=== PATIENT | male | born 1965 | race Caucasian/White ===

== ENCOUNTER 2018-02-27 10:19 | Emergency (ER) | payer MEDICAID, SELFPAY ==
[2018-02-27] VITALS (16 sets, daily range): BP systolic 122–147; BP diastolic 74–90; PULSE 60–117; RESP 10–18; TEMP 36.5–36.7; O2SAT 94–99
[2018-02-27] MEDS: Normal Saline 1,000 ML 1000 ML IV (10:50)
[2018-02-27 10:52] LABS: Bilirubin Negative (Negative); Blood Moderate (Negative); Clarity Clear; Glucose Negative (Negative); Ketones Negative (Negative); Leukocyte Esterase Trace (Negative); Nitrite Negative (Negative); Specific Gravity 1.025 (1.005-1.025); Urobilinogen 0.2 EU/dL (Up TO 0.2); pH 5.5 (5-8)
--- NOTE | 2018-02-27 10:56 | DI.CT_ITS ---
SYMPTOMS/DIAGNOSIS: LT FLANK PAIN NONCONTRAST RENAL COLIC CT: Comparison is made with [id number]. A 6 x 8 mm stone was previously noted in the left mid ureter. The stone is now located distally in the ureter, above the ureterovesical junction. There is now moderate left hydronephrosis as well as some left perinephritic stranding. Nonobstructing stones and an area of scarring is again noted at the mid and inferior portion of the left kidney. No right renal calculi are seen. A large stone is again noted in the bladder. The prostate is again noted to be markedly enlarged and impresses upon the base of the bladder. Again a bladder mass is questioned. It is not well evaluated due to lack of contrast. The adrenals and inferior portions of the liver and spleen are unremarkable. There is no bowel dilatation. Diverticula are again noted in the sigmoid colon. IMPRESSION: Moderate hydronephrosis secondary to an 8 mm stone in the distal left ureter, migrating distally when compared with the previous exam. A large bladder calculus, enlarged prostate and bladder wall thickening as well as bladder mass are again identified.
--- NOTE | 2018-02-27 10:59 | ED.GENADUL_ITS ---
Discharge Plan Discharge Details Chief Complaint: FlankPain Clinical Impression: Acute left flank pain, Left ureteral stone Primary Care Provider: Alysia Campbell ED Provider: Rodo Talavera Disposition Patient Disposition: HOME Condition: Stable Home Meds and New Rx's Prescriptions: New oxycodone 5 mg capsule 5 mg PO ONCE PRN (Reason: pain) Qty: 12 RF: 0 levofloxacin 750 mg tablet 750 mg PO DAILY Qty: 7 RF: 0 ondansetron [Zofran ODT] 4 mg tablet,disintegrating 4 mg PO TID PRN (Reason: nausea and vomiting) 5 Days Qty: 30 RF: 0 No Action simvastatin 10 MG tablet 10 mg PO DAILY RF: 0 bupropion HCl [Wellbutrin SR] 150 MG tablet extended release 12 hr 300 mg PO DAILY RF: 0 Discharge Instructions Instructions: Kidney Stones (ED), Oxycodone, Rapid Release (By mouth) Additional Instructions: you can take 1000mg tylenol and 600mg ibuprofen every 6 hours for pain as needed if you have severe worsening of pain, persistent vomit or fevers return to the emergency department Referrals: Amador Holly MD [ [facility] ST[facility]FF PHYSICIAN] - Discharge Data Discharge Physician: Rodo Talavera Medical Decision Making MDM Narrative Medical decision making narrative: 52 yo male with hx of bph, kidney stones, hld , who comes in with chief complaint of left flank pain that started around midnight and has had nausea. He has joanie bdominal tenderness so doubt entities such as appendicitis or sbo or other surgical pathology of the abdomen. Will obtain imaging to eval for kidney stone. No chest pain or sob so doubt PE and has no evidence of dvt pt remains stable, labs show no significant abnormalities, does have bacteria in his urine so will start abx for this. His CT confirms 7mm distal stone and likely hematoma in bladder and stone. He is stable for d/c, referral sent to Dr. Holly's office and they stated they will contact him with an appt. Return precautions given Differential Diagnosis kidney stone, pyelo, uti Imaging Data Radiologic Study: Attestation: I personally reviewed and interpreted this imaging study as follows: Imaging: CT Scan Radiologist's impression: vrad report reviewed Lab Data Lab results reviewed: Yes I reviewed the patient's lab results. HPI - General Adult General Mode of arrival: ambulatory . Date/Time Provider Initiated Documentation: 02/27/18 10:51 . Limitations to Documentation: no limitations . Information obtained by: patient . History of Present Illness 52 year old M presents to the emergency department with the chief complaint of left flank pain, described as moderate, with intensity rated at 6. Quality is described as stabbing, and is localized to the back (left flank). Patient reports no radiation. Patient started experiencing this hour(s) (11 ) and it has been constant. No relieving factors improve symptom(s), No exacerbating factors reported . Patient notes other (nausea). Patient did receive the following treatments prior to arrival, none Related Data Home Medications Medication Instructions Recorded Confirmed bupropion HCl [Wellbutrin SR] 300 mg PO DAILY 06/24/17 02/27/18 simvastatin 10 mg PO DAILY tab-cap NS 11/12/17 02/27/18 Previous Rx's Medication Instructions Recorded levofloxacin 750 mg PO DAILY #7 tab 02/27/18 ondansetron [Zofran ODT] 4 mg PO TID PRN 5 Days #30 tab 02/27/18 oxycodone 5 mg PO ONCE PRN #12 cap 02/27/18 Allergies Allergy/AdvReac Type Severity Reaction Status Date / Time No Known Allergies Allergy Unverified 02/27/18 10:26 General Stated Complaint: FlankPain LEOBARDO: 3 Review of Systems Review of Systems All systems reviewed & are unremarkable except as noted in HPI and below Constitutional Denies chills, Denies fever(s) and Denies weakness Eyes Patient Denies loss of vision ENT Denies change in voice Cardiovascular Denies chest pain and Denies dyspnea Respiratory Denies dyspnea Gastrointestinal Denies abdominal pain, Reports nausea and Denies vomiting Genitourinary Denies dysuria Musculoskeletal Denies joint swelling Integumentary/Breasts Denies rash Neurologic Denies loss of vision and Denies weakness Psychiatric Denies depression Endocrine Denies cold intolerance and Denies heat intolerance Allergic/Immunologic Reports urticaria [facility] Medical History BPH (benign prostatic hyperplasia) Depression Varicosities of leg Social History Smoking/Tobacco Use Status: Never Surgical History Colonoscopy - MAC (11/19/17) Repair of inguinal hernia Exam Const General: no acute distress Orientation: alert HENMT Head: normal to inspection Ears: external ears normal General nose exam: external nose normal Mouth: moist mucous membranes Eyes General: appearance normal, both eyes and all related structures Neck Neck: normal visual inspection Resp Effort & Inspection: normal respiratory effort and able to speak in complete sentences Cardio Rate: regular rate GI Inspection: normal to inspection Palpation: nontender Back/Spine/Pelvis Back: No CVA tenderness Skin General skin exam: no rashes or lesions noted Neuro General: alert and oriented x3 Extrem General: normal to inspection Psych Mental Status: mental status grossly normal Course Vital Signs Temperature 36.7 C 02/27/18 10:21 Pulse 74 02/27/18 10:21 Respiratory Rate 16 02/27/18 10:21 Blood Pressure 147/75 H 02/27/18 10:21 Pulse Oximetry 98 02/27/18 10:21 Temperature 36.7 C 02/27/18 10:21 Pulse 74 02/27/18 10:21 Respiratory Rate 16 02/27/18 10:21 Blood Pressure 147/75 H 02/27/18 10:21 Pulse Oximetry 98 02/27/18 10:21
[2018-02-27] MEDS: Ketorolac 30 MG/ML VIAL IVP (11:00)
[2018-02-27] MEDS: Ondansetron 4 MG/2 ML VIAL IVP (11:02)
[2018-02-27 11:04] LABS: Bacteria Moderate HPF (Negative); C & S Indicated? Yes; Casts Negative LPF (Negative); Crystals Negative HPF (Negative); Epithelial Cells Negative HPF (Negative); Mucus Heavy (Negative); Other Cells Negative (Negative); RBC >50 (0-2)
[2018-02-27 11:25] LABS: Abs Immature Grans 0.02 k/cumm (0.0-0.09); Absolute Basophil Count 0.04 k/cumm (0.0-0.2); Absolute Eosinophil Count 0.05 k/cumm (0.0-0.7); Absolute Lymphocyte Count 1.72 k/cumm (1.2-3.4); Absolute Neutrophil Count 10.63 k/cumm (1.2-6.7); Basophils % 0.3; Eosinophils % 0.4; HCT 44.6 % (40.0-50.0); HGB 15.1 g/dL (13.5-17.5); Immature Grans % 0.1; Lymphocytes % 12.8; Mean Corp. HGB Concentration 33.9 g/dL (32.0-36.0); Mean Corpuscular Hemoglobin 30.2 pg (27.0-33.0); Mean Corpuscular Volume 89.2 fL (80-95); Mean Platelet Volume 10.1 fL (8.0-11.0); Monocytes % 7.2; Neutrophils % 79.2; Platelet Count 256 x1000/uL (130-400); RBC Distribution Width 12.9 % (11.8-14.1); White Blood Cell Count 13.42 k/cumm (4.4-10.8)
[2018-02-27 11:27] LABS: Absolute Monocyte Count 0.97 k/cumm (0.11-0.7)
[2018-02-27 11:31] LABS: INR 1.2 (1.0-3.5); PTT Activated 27.2 sec (21.0-31.4); Prothrombin Time 11.7 sec (9.3-10.8)
[2018-02-27 11:32] LABS: ALT 31 U/L (12-78); AST 21 U/L (15-37); Albumin 4.3 g/dL (3.4-5.0); Alkaline Phosphatase 80 U/L (46-116); BUN 26 mg/dL (7-18); Bilirubin, Total 0.7 mg/dL (0.2-1.0); CREATININE 1.23 mg/dL (0.70-1.30); Calcium 8.6 mg/dL (8.5-10.1); Chloride 105 mmol/L (98-107); Glucose 112 mg/dL (70-100); Potassium 4.1 mmol/L (3.5-5.1); Sodium 137 mmol/L (136-145); Total Protein 7.6 g/dL (6.4-8.2)
[2018-02-27] MEDS: MORPHine 10 MG/ML VIAL 4 MG IVP (13:15)
--- NOTE | 2018-02-27 13:30 | DI.VRAD_ITS ---
EXAM: CT Abdomen and Pelvis Without Intravenous Contrast EXAM DATE/TIME: 02/27/2018 11:49 AM CLINICAL HISTORY: 52 years old, male; Pain; Other: Flank pain TECHNIQUE: Axial computed tomography images of the abdomen and pelvis without intravenous contrast. Coronal and sagittal reformatted images were created and reviewed. COMPARISON: CT - RENAL COLIC WO CONTRAST 01/05/2018 11:35 AM FINDINGS: Lower thorax: Not included on the study. ABDOMEN: Liver: The visualized portions of the liver appear unremarkable. Gallbladder and bile ducts: The gallbladder is within normal limits. Pancreas: The visualized portions of the pancreas are unremarkable. Spleen: The visualized portions of the spleen are within normal limits. Adrenals: The visualized portions of the adrenal glands are unremarkable. Kidneys and ureters: The right kidney is within normal limits. There are calculi within the lower pole of the left kidney. One measures up to 4 mm and second one measures approximately 2 mm. There is a third calculus measuring up to 4 mm. There is perinephric stranding on the left side. There is moderate hydroureteronephrosis of the left kidney. The left kidney is obstructed secondary to a distal ureteral calculus measuring 7 mm. Stomach and bowel: There is no evidence of bowel obstruction. Appendix: No evidence of appendicitis. PELVIS: Bladder: There is a mass versus hematoma within the urinary bladder. The urinary bladder is not very distended with urine. There is a large bladder stone measuring 2.1 x 1.5 cm. Further evaluation with cystoscopy is suggested if clinically warranted. Reproductive: The prostate is enlarged and indents the bladder base. The seminal vesicles are within normal limits. ABDOMEN and PELVIS: Intraperitoneal space: Normal. No free air. No significant fluid collection. Bones/joints: There are slight degenerative changes of the lumbar spine. Soft tissues: There is a suspected abdominal mesh. Vasculature: The aorta is within normal limits. Lymph nodes: No enlarged lymph nodes. IMPRESSION: Moderate hydroureteronephrosis of the left kidney. The left kidney is obstructed secondary to a distal ureteral calculus measuring 7 mm. Suspect hematoma within the urinary bladder. Underlying mass is not excluded. Large urinary bladder stone. Further evaluation with cystoscopy could be performed if clinically warranted. Enlarged prostate. Correlation with patient's PSA is recommended. Dictated and Authenticated by: Shakir Gibbons MD. Ordering:MARYJANE GARCIA MD
--- NOTE | 2018-03-10 11:01 | PDOC.ERCMPRO ---
Care Management Progress Note 03/10/18-Pt seen for bladder hematoma on 02/27/[address] Barney Talavera. F/U request faxed to Urology.
== END 2018-02-27 14:29 | disposition home or self-care (01) ==
PROVIDERS: Emergency Provider Emergency Medicine; PCP Nurse Practitioner
DX: R10.9 Unspecified abdominal pain (principal); N20.1 Calculus of ureter
CPT/HCPCS: 36415; 80053; 96361; 96374; 96375; 99285; 74176; 81003; 81015; 85025; 85610; 85730; 87086; J1885; J2270; J2405

== ENCOUNTER 2018-09-24 16:57 | Outpatient (REF) | payer MEDICAID, SELFPAY | END 2018-09-24 17:17 | LOC: NCHCN 16:57 | PROVIDERS: PCP Nurse Practitioner; Visit Provider Nurse Practitioner | DX: R31.9 Hematuria, unspecified (principal) | CPT/HCPCS: 87086 ==

== ENCOUNTER 2018-09-25 16:41 | Outpatient (CLI) | payer MEDICAID, SELFPAY ==
--- NOTE | 2018-09-25 15:47 | DI.RAD_ITS ---
SYMPTOM/DIAGNOSIS: F/U STONES, N21.0,N20.1 ABDOMEN: Two views were obtained. The patient reportedly has a history of nephrolithiasis and bladder calculi. There are phleboliths in the pelvis on the left. There is also a possible calcification overlying expected position of the bladder, however I am not certain whether this may represent a bony finding and no oblique views were obtained. CONCLUSION: The examination is indeterminate for urinary tract calcification.
== END 2018-09-25 17:01 ==
PROVIDERS: PCP Nurse Practitioner; Visit Provider Urology
DX: N21.0 Calculus in bladder (principal); N20.1 Calculus of ureter
CPT/HCPCS: 74018

== ENCOUNTER 2018-12-18 06:39 | Inpatient (IN) | payer MEDICAID, SELFPAY ==
[2018-12-18] VITALS (12 sets, daily range): BP systolic 92–145; BP diastolic 55–86; PULSE 73–96; RESP 12–20; TEMP 35.8–36.7; O2SAT 95–97
--- NOTE | 2018-12-18 06:48 | W.PM.HP.N ---
Date of service: 12/18/18 Time of Service: 07:02 Assessment and Plan (1) Bladder stone: Current visit: No Status: Acute (2) BPH (benign prostatic hyperplasia): Current visit: No Status: Acute We will proceed with cystoscopy, holmium laser of bladder stone, stone evacuation and transurethral resection of prostate. Given the size of the prostate, I would expect the entire to the procedure to last several hours. We will admit him to the hospital afterwards for continuous bladder irrigation. History of Present Illness Chief Complaint: Bladder stone Narrative: This is a 52-year-old gentleman who has a long history of an elevated PSA, prostatic hyperplasia and gross hematuria. He has had multiple prostate biopsies which is shown no malignancy. Most of his previous urologic care occurred when he was living in [place]. When I first met this gentleman, he had developed urinary retention. We did a cystoscopy and clot evacuation. We identified a large stone within his bladder. He subsequently had a prostate biopsy which showed and confirmed the absence of prostate malignancy. With no concerns for prostate cancer, we had discussed treatment options for his bladder stone and his prostate. He presents now for cystoscopy, holmium laser of his bladder stone with stone evacuation and vaporization of his prostate. Review of Systems Review of Systems No chills. Describes fever last week related to stress No vision change or dysphasia No diabetes or thyroid No shortness of breath, cough or hemoptysis No chest pain or palpitations No nausea, vomiting, hepatitis, ulcers, jaundice, diarrhea or constipation No seizures, strokes or peripheral neuropathy No bleeding disorders or anemia No gout [facility] Medical History Pneumothorax (Acute) Pneumothorax on left (Acute) Pneumothorax on right (Acute) BPH (benign prostatic hyperplasia) Depression Varicosities of leg Surgical History H/O prostate biopsy (Resolved) History of cystoscopy (Resolved) Colonoscopy - MAC (11/19/17) Repair of inguinal hernia Social History Smoking/Tobacco Use Status: Never Alcohol Intake: current Drug use: Rarely Substance use type: does not use Do you feel safe in your relationship?: Yes Meds Home Medications Medication Instructions Recorded Confirmed Type bupropion HCl [Wellbutrin SR] 300 mg PO DAILY 06/24/17 12/18/18 History multivitamin 1 cap PO QAM 06/26/19 06/27/19 History saw palmetto 160 mg PO DAILY 12/17/18 12/18/18 History Allergies Allergy/AdvReac Type Severity Reaction Status Date / Time No Known Allergies Allergy Unverified 12/18/18 06:48 Exam Narrative Exam Narrative: He is in no current distress. He is cooperative. His vital signs are documented elsewhere in the chart. His chest wall motion is normal. He does not appear short of breath at rest. His neck is supple with no masses His lungs are clear cardiac exam regular rate and rhythm with no murmurs His abdomen is soft with no masses. His urethral meatus is patent with no stricture. He is awake and alert. On imaging studies, his bladder stone is estimated to be @ 3 cm in largest dimension. On TRUs, his prostate volume is over 100 cc.
[2018-12-18] MEDS: Lactated Ringers 1,000 ML 80 ML IV (06:58)
[2018-12-18] MEDS: ceFAZolin 2 GM/50 ML BAG IVPB (07:28)
[2018-12-18] MEDS: Lidocaine 2% Jelly 6 ML SYR (07:51)
--- NOTE | 2018-12-18 10:48 | PROST_PTH ---
PATIENT: Rodo Elizabeth LOC: [id number]#:[id number] AGE/SX: 52/M ROOM: 207 RE12/18/[address]: Amador Holly MD : 1965 BED: A DIS: 12/20/2018 SPEC #: [id number] RECD: 12/18/18 12:53 STATUS: FRANCISCO J REQ #: [id number] FELICIA: 12/18/18 10:[address]: Amador Holly DEPT: Surgical Specimen RECD BY: Rosetta Quintana ENTERED: 12/18/18 12:53 SP TYPE: PROST OTHR DR: Alysia Campbell Tissues: 1 - PROSTATE CURRETTINGS Procedures: GROSS AND MICRO LEVEL 4 Comments: [id number]
[2018-12-18] MEDS: Lactated Ringers 1,000 ML 125 ML IV ×2 (11:56→20:52)
--- NOTE | 2018-12-18 12:54 | NUR.NOTE ---
Nursing Note: Pt A&Ox3. VSS. On 2L O2, 95%. CBI running. No c/o pain. groggy. will con't to monitor.
[2018-12-18] MEDS: Normal Saline Flush 10 ML SYR IV ×2 (14:32→20:02)
[2018-12-18] MEDS: HYDROmorphone 2 MG/ML VIAL IVP ×2 (14:32→20:01)
[2018-12-18] MEDS: traMADol 50 MG TAB PO (14:32)
[2018-12-18] MEDS: Ketorolac 15 MG/ML VIAL IVP (20:01)
[2018-12-18] MEDS: Docusate Sodium 100 MG CAP PO (20:58)
--- NOTE | 2018-12-19 01:46 | NUR.NOTE ---
Nursing Note: CBI in progress with bruce red output but no blood clots noted. Medicated with dilaudid and toradol by other nurse and with good relief. Ambulates from bed to bathroom, had 2 drops of blood from penis noted. Ibuprofen given as requested for pain,and with good effect. Needs attended. Call lights at reach.
[2018-12-19] MEDS: HYDROmorphone 2 MG/ML VIAL IVP (05:34)
[2018-12-19] MEDS: Lactated Ringers 1,000 ML 125 ML IV (05:38)
[2018-12-19] MEDS: Normal Saline Flush 10 ML SYR IV (05:49)
[2018-12-19] MEDS: Ketorolac 15 MG/ML VIAL IVP (05:49)
[2018-12-19] MEDS: traMADol 50 MG TAB PO (05:49)
[2018-12-19 05:50] VITALS: BP 142/80; PULSE 68; RESP 20; TEMP 36.8; O2SAT 96
--- NOTE | 2018-12-19 07:09 | W.PM.PROGNOT ---
Date of Service Date of service: 12/19/18 Time of Service: 07:09 Assessment and Plan (1) Bladder stone: Current visit: No Status: Acute (2) BPH (benign prostatic hyperplasia): Current visit: No Status: Acute I would discontinue his bladder irrigation this morning. If the urine becomes bloody (to the point where it is no longer transparent) we will restart the bladder irrigation. Otherwise, I would expect that we will be able to discharge him to home later today with his catheter in place. He will then come back to our office next week for a voiding trial. If we do need to restart his bladder irrigation, he will likely need to stay an extra night in the hospital. Subjective Interval history since last seen: He had some discomfort this morning, but no clot retention. He is tolerating oral medications Exam Narrative Exam Narrative: He is in no current distress. He does not appear septic or toxic. His vital signs are documented elsewhere in the chart. He is urine output is clear with CBI running He is awake, alert and oriented His labs from this morning are pending Objective Objective Clinical Data: Vital Signs Temperature 36.8 C 12/19/18 05:50 Temperature Source Tympanic 12/19/18 05:50 Pulse 68 12/19/18 05:50 Pulse Rhythm Regular 12/18/18 17:06 Respiratory Rate 20 12/19/18 05:50 Respiratory Effort Non-Labored 12/18/18 17:06 Respiratory Depth Normal 12/18/18 17:06 Respiratory Pattern Normal 12/18/18 17:06 Blood Pressure 142/80 H 12/19/18 05:50 Pulse Oximetry 96 12/19/18 05:50 Respiratory End-tidal CO2 33 12/18/18 12:11 Oxygen Delivery Method Room Air 12/19/18 05:50 Oxygen Flow Rate 0 12/19/18 05:50 Pain Level 6 12/19/18 05:50 Intake & Output 12/18/18 12/18/18 12/19/18 11:59 23:59 11:59 Intake Total 950 / 2440.000 1490.000 / 2440.000 1050 / 1050 Output Total 50 / 4050 4000 / 4050 Balance 900 / -1610.000 -2510.000 / -1162.482 9095 / 1050 Weight 100.3 kg Intake: IV 950 / 2200.000 1250.000 / 2200.000 1050 / 1050 Oral 240 / 240 Output: Urine 4000 / 4000 Estimated Blood Loss 50 / 50 Other: Urine Color [place] Urine Appearance Clear Hematuria Comment CBI draining [place] red output no blood clots. light pink and clear Emesis Description None None
--- NOTE | 2018-12-19 07:11 | W.PM.DS.N ---
Date of service: 12/20/18 Time of Service: 09:23 DS: Diagnosis Discharge Diagnosis (1) Bladder stone: Status: Acute (2) BPH (benign prostatic hyperplasia): Status: Acute Discharge Plan Disposition Patient Disposition: HOME Condition: Stable Discharge Details Reason For Visit: BLADDER STONE Admit Date/Time: 12/18/18 06:39 Admit Provider: Amador Holly Attending Provider: Amador Holly Primary Care Provider: Nathalie Franco Hospital Course Hospital Course: The patient was admitted and taken to the operating room on 12/18/2018 for a planned cystoscopy, holmium laser of a known bladder stone and transurethral resection of the prostate In the operating room, we were initially unable to visualize the bladder stone due to a large intravesical portion of his prostate. We resected his median lobe to access his bladder stone. We were then able to fracture the bladder stone and remove the visible fragments. In the postoperative period, we ran continuous bladder irrigation. He had no clots or retention in the first 24 hours. He remained afebrile. He was able to tolerate a regular diet. His bladder irrigation was discontinued, but he developed clot retention so we hand irrigated his catheter and restarted his bladder irrigation On postoperative day #2, his irrigation remained clear. I found no clots when I hand irrigated his catheter that morning. His bladder irrigation was again discontinued and he will be discharged to home if the catheter continues to drain well His serum creatinine had a bump immediately after surgery. The creatinine has decreased back towards its baseline before discharge. Home Meds and New Rx's Prescriptions: No Action bupropion HCl [Wellbutrin SR] 150 MG tablet extended release 12 hr 300 mg PO DAILY RF: 0 saw palmetto 160 mg Capsule 160 mg PO DAILY RF: 0 multivitamin Capsule 1 cap PO QAM RF: 0 Discharge Instructions Additional Instructions: Follow-up early next week for catheter removal. He will also need an appointment for 1 to 2 weeks to review his surgical pathology. Urology will call you with appointment date and times. Singh to leg bag with plug to catheter's irrigation port. OK to shower Referrals: Amador Holly MD [ [facility] STAFF PHYSICIAN] - 12/26/18 8:00 am (keep afternoon of 12/26 free, if unable to void after appt will need to come back to office pt to f/u with Avni again 01/09 @ 1100 am ) Activity:: No lifting over 10 pounds until followup visit Equipment/Supplies:: Singh to legbag Diet:: As Tolerated Discharge Orders Discharge Orders: Discharge Order (Routine); Ordered 12/20/18 Ordered By: Amador Holly Exam Narrative Exam Narrative: At the time of discharge, he looks well. He does not appear septic or toxic. His vital signs are documented elsewhere in this chart His chest wall motion is normal. He does not appear short of breath at rest. Cardiac exam shows a regular rate and rhythm. His abdomen is soft with no guarding or rebound tenderness His urine remains transparent but pink-tinged He is awake, alert and oriented. His surgical pathology is not available. DS: Data Vitals/I&O Vitals and I&O: Vital Signs Temperature 36.8 C 12/19/18 05:50 Temperature Source Tympanic 12/19/18 05:50 Pulse 68 12/19/18 05:50 Pulse Rhythm Regular 12/18/18 17:06 Respiratory Rate 20 12/19/18 05:50 Respiratory Effort Non-Labored 12/18/18 17:06 Respiratory Depth Normal 12/18/18 17:06 Respiratory Pattern Normal 12/18/18 17:06 Blood Pressure 142/80 H 12/19/18 05:50 Pulse Oximetry 96 12/19/18 05:50 Respiratory End-tidal CO2 33 12/18/18 12:11 Oxygen Delivery Method Room Air 12/19/18 05:50 Oxygen Flow Rate 0 12/19/18 05:50 Pain Level 6 12/19/18 05:50 Intake & Output 12/18/18 12/18/18 12/19/18 11:59 23:59 11:59 Intake Total 950 / 2440.000 1490.000 / 2440.000 1050 / 1050 Output Total 50 / 4050 4000 / 4050 Balance 900 / -1610.000 -2510.000 / -4318.681 0082 / 1050 Weight 100.3 kg Intake: IV 950 / 2200.000 1250.000 / 2200.000 1050 / 1050 Oral 240 / 240 Output: Urine 4000 / 4000 Estimated Blood Loss 50 / 50 Other: Urine Color [place] Urine Appearance Clear Hematuria Comment CBI draining [place] red output no blood clots. light pink and clear Emesis Description None None Labs on day of discharge: Labs from last 24 hours 12/19/18 12/19/18 12/18/18 05:35 05:35 10:48 WBC Pending RBC Pending Hgb Pending Hct Pending MCV Pending MCH Pending MCHC Pending RDW Pending Plt Count Pending MPV Pending Sodium Pending Potassium Pending Chloride Pending Carbon Dioxide Pending Anion Gap Pending BUN Pending Creatinine Pending Estimated GFR/1.73 m2 Pending Glucose Pending Calcium Pending Stone Analysis Pending Stone Source Pending Stone Constituent 1 Pending Stone Constituent 2 Pending Stone Constituent 3 Pending Major Stone Nidus Pending Minor Stone Nidus Pending Major Stone Shell Pending Minor Stone Shell Pending Stone Comment Pending [facility] Medical History Pneumothorax (Acute) Pneumothorax on left (Acute) Pneumothorax on right (Acute) BPH (benign prostatic hyperplasia) Depression Varicosities of leg Surgical History H/O prostate biopsy (Resolved) History of cystoscopy (Resolved) Colonoscopy - MAC (11/19/17) Repair of inguinal hernia Social History Smoking/Tobacco Use Status: Never Alcohol Intake: current Drug use: Rarely Substance use type: does not use Do you feel safe in your relationship?: Yes
[2018-12-19 07:27] LABS: HCT 36.8 % (40.0-50.0); HGB 12.5 g/dL (13.5-17.5); Mean Corpuscular Hemoglobin 30.5 pg (27.0-33.0); Mean Corpuscular Volume 89.8 fL (80-95); Mean Platelet Volume 10.5 fL (8.0-11.0); Platelet Count 237 x1000/uL (130-400); RBC Distribution Width 13.1 % (11.8-14.1); White Blood Cell Count 15.06 k/cumm (4.4-10.8)
--- NOTE | 2018-12-19 07:28 | ROE_ITS ---
REPORT OF OPERATIVE PROCEDURE DATE OF PROCEDURE December 18, 2018 PREOPERATIVE DIAGNOSIS Bladder stone. POSTOPERATIVE DIAGNOSIS Bladder stone. PROCEDURE Cystoscopy, Holmium laser lithotripsy of bladder stone, transurethral resection of large median lobe of prostate. SURGEON SURGEON Amador Holly M.D. ANESTHESIA General. COMPLICATIONS None. ESTIMATED BLOOD LOSS Less than 200 cc HISTORY This is a 52-year-old gentleman who has a history of an enlarged prostate. He has also been identifie d as having a large bladder stone. He has had hematuria with clot retention, he presents now for emma tment of his bladder stone. OPERATIVE REPORT The patient was brought to the Operating Room on 12/18/2018. After successful induction of general an esthesia, he was placed in the dorsal lithotomy position. His genitalia was prepped and draped. A #22-German rigid cystoscope was passed through the urethra into the bladder. The urethra and bladd er were inspected with the 30-degree lens. The pendulous, bulbous and membranous urethras all appeared normal with no strictures. The prostatic urethra showed lateral lobe enlargement, and a very large median lobe. In fact, the median lobe was s o large that I was initially unable to visualize the stone. We then removed the cystoscope, and converted to a #26-German rectoscope sheath. I then resected and vaporized the very large median lobe until the stone came into view. We then switched back to the cystoscope and used 1000 micron Holmium laser fiber to fracture the ston e. We used the power setting of 1.5 joules and a rate of 8. As the stone fragmented, we evacuated the stone fragments, we sent them to the lab for chemical analysis. Once the stone had been fragmented and removed, we then switched back to the resectoscope and vaporiz ation button. We resected the remainder of the median lobe and sent all resected tissue for Pathology We then switched over to the plasma button and vaporized the remainder of the median lobe. At the completion of the procedure, no arterial bleeding was seen. No residual stone fragments were i dentified. We then passed a #24-German hematuria catheter through the urethra into the bladder. The c atheter balloon was inflated with 30 cc of sterile water. Continuous bladder irrigation with saline w as begun. Traction was placed on the catheter until the irrigant became clear. The patient tolerated the procedure well. There were no complications.
[2018-12-19 07:40] LABS: Anion Gap 12.3 mmol/L (3-11); BUN 46 mg/dL (7-18); CO2 21.7 mmol/L (21.0-32.0); CREATININE 2.39 mg/dL (0.70-1.30); Calcium 7.8 mg/dL (8.5-10.1); Chloride 106 mmol/L (98-107); Estimated GFR 28.49 (mL/min/1.73m2); Glucose 126 mg/dL (70-100); Potassium 4.2 mmol/L (3.5-5.1); Sodium 140 mmol/L (136-145)
[2018-12-19] MEDS: Docusate Sodium 100 MG CAP PO ×2 (08:01→20:25)
[2018-12-19] MEDS: buPROPion-CR 150 MG TABCR 300 MG PO (08:01)
[2018-12-19] MEDS: Multivitamin TAB 1 TAB PO (08:01)
--- NOTE | 2018-12-19 08:15 | PDOC.CMIN ---
- If Service Date Differs Date of service: 12/19/18 Time of Service: 08:15 Care Management Initial Assess REASON FOR HOSPITALIZATION:: Bladder stone PAST MEDICAL HISTORY/PAST SURGICAL HISTORY:: Medical History . Pneumothorax (Acute). Pneumothorax on left (Acute). Pneumothorax on right (Acute). BPH (benign prostatic hyperplasia). Depression. Varicosities of leg. Surgical History. H/O prostate biopsy (Resolved). History of cystoscopy (Resolved). Colonoscopy - MAC (11/19/17). Repair of inguinal hernia PREVIOUS FUNCTIONAL STATUS/SOCIAL/FAMILY SUPPORTS:: Rodo lives in a [employer] community in [place] with many other individuals. Currently he is in a single room but will be moving into a dormitory there soon. He describes the community as very supportive. 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 CURRENT FUNCTIONAL STATUS:: Rodo was sitting up in a chair when visited. He was preparing for discharge at the time. He states he is feeling better and looks forward to going home. ADVANCE DIRECTIVES:: None on file at [facility] Has patient been provided with information about the portal?: No Did the patient sign up for the portal?: No CODE STATUS:: Full Code INSURANCE COVERAGE / FINANCIAL ISSUES:: Medicaid Vt CURRENT HOME/COMMUNITY SERVICES/EQUIPMENT:: none PRIMARY CARE PHYSICIAN:: Alysia Campbell POTENTIAL DISCHARGE NEEDS:: Follow up with urology, PCP and discharge plan of care PATIENT/FAMILY EDUCATION NEEDS:: Discharge plan, limitations, follow up plan and Ask Me Three. ANTICIPATED BARRIERS TO DISCHARGE:: none identified TRANSPORTATION:: Rodo will drive himself home via private vehicle. PLAN:: Rodo will be discharged to his home this afternoon. He will follow up with his urologist, PCP and discharge plan of care.
[2018-12-19 08:25] VITALS: BP 127/80; PULSE 63; RESP 20; TEMP 36; O2SAT 97
--- NOTE | 2018-12-19 10:24 | INITIAL_ITS ---
- If Service Date Differs Date of service: 12/19/18 Time of Service: 08:15 Care Management Initial Assess REASON FOR HOSPITALIZATION:: Bladder stone PAST MEDICAL HISTORY/PAST SURGICAL HISTORY:: Medical History . Pneumothorax (Acute). Pneumothorax on left (Acute). Pneumothorax on right (Acute). BPH (benign prostatic hyperplasia). Depression. Varicosities of leg. Surgical History. H/O prostate biopsy (R esolved). History of cystoscopy (Resolved). Colonoscopy - MAC (11/19/17). Repair of inguinal hernia PREVIOUS FUNCTIONAL STATUS/SOCIAL/FAMILY SUPPORTS:: Rodo lives in a [employer] community in [place] with many other individuals. Currently he is in a single room but will be moving into a dormitory there soon. He describes the community as very supportive. 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 CURRENT FUNCTIONAL STATUS:: Rodo was sitting up in a chair when visited. He was preparing for discharge at the time. He states he is feeling better and looks forward to going home. ADVANCE DIRECTIVES:: None on file at [facility] Has patient been provided with information about the portal?: No Did the patient sign up for the portal?: No CODE STATUS:: Full Code INSURANCE COVERAGE / FINANCIAL ISSUES:: Medicaid Vt CURRENT HOME/COMMUNITY SERVICES/EQUIPMENT:: none PRIMARY CARE PHYSICIAN:: Alysia Campbell POTENTIAL DISCHARGE NEEDS:: Follow up with urology, PCP and discharge plan of care PATIENT/FAMILY EDUCATION NEEDS:: Discharge plan, limitations, follow up plan and Ask Me Three. ANTICIPATED BARRIERS TO DISCHARGE:: none identified TRANSPORTATION:: Rodo will drive himself home via private vehicle. PLAN:: Rodo will be discharged to his home this afternoon. He will follow up with his urologist, PCP and discharge plan of care.
--- NOTE | 2018-12-19 10:50 | CHAPLAIN ---
Rodo was sitting up in his chair reading when I visited. I explained my role and offered support. He said he knew he would be in the hospital for a short time and so he did not ask any friends or relatives to visit him. Rodo is listed on our roster as [employer]ism and his address is the address of [place].
[2018-12-19] MEDS: Acetaminophen 325 MG TAB 650 MG PO ×2 (12:57→22:37)
--- NOTE | 2018-12-19 13:08 | NUR.NOTE ---
Nursing Note: In anticipation of d/c, pt's three way irrigation had been clamped and leg bag placed. Pt c/o leakage around tip of penis and considerable pain. Pain (7/10) was intermittent and described as stabbing, particularly when pt felt that he needed to void. MS director consulted; bladder scan obtained (0ml), balloon deflated/inflated), belladonna/opium suppository administered. Singh continued to drain dark red urine. Hand irrigation bringing multiple clots. APAP administered. MD notified. Pt to MD's office for additional intervention. RN will continue to monitor.
[2018-12-19 15:42] VITALS: BP 152/86; PULSE 71; RESP 19; TEMP 36.4; O2SAT 98
--- NOTE | 2018-12-19 16:22 | W.PM.PROGNOT ---
Date of Service Date of service: 12/19/18 Time of Service: 16:23 Assessment and Plan (1) Bladder stone: Current visit: No Status: Acute (2) BPH (benign prostatic hyperplasia): Current visit: No Status: Acute We will keep him in the hospital overnight and restart his bladder irrigation. His serum creatinine was a bit high this morning, I expect it had to do with the long surgical time yesterday. We will recheck a serum creatinine tomorrow. Subjective Interval history since last seen: His bladder irrigation was discontinued earlier today. He did fairly well but then developed more clots and clot retention. Initially, the catheter was hand irrigated and multiple clots were obtained. Objective Objective Clinical Data: Abnormal lab results 12/19/18 12/19/18 Range/Units 06:20 06:20 WBC 15.06 H (4.4-10.8) k/cumm RBC 4.10 L (4.50-6.00) m/cumm Hgb 12.5 L (13.5-17.5) g/dL Hct 36.8 L (40.0-50.0) % Anion Gap 12.3 H (3-11) mmol/L BUN 46 H (7-18) mg/dL Creatinine 2.39 H (0.70-1.30) mg/dL Glucose 126 H (70-100) mg/dL Calcium 7.8 L (8.5-10.1) mg/dL Vital Signs Temperature 36.4 C L 12/19/18 15:42 Temperature Source Tympanic 12/19/18 15:42 Pulse 71 12/19/18 15:42 Pulse Rhythm Regular 12/19/18 07:55 Respiratory Rate 19 12/19/18 15:42 Respiratory Effort Non-Labored 12/19/18 07:55 Respiratory Depth Normal 12/19/18 07:55 Respiratory Pattern Normal 12/19/18 07:55 Blood Pressure 152/86 H 12/19/18 15:42 Pulse Oximetry 98 12/19/18 15:42 Respiratory End-tidal CO2 33 12/18/18 12:11 Oxygen Delivery Method Room Air 12/19/18 15:42 Oxygen Flow Rate 0 12/19/18 15:42 Pain Level 0 12/19/18 15:42 Intake & Output 12/18/18 12/19/18 12/19/18 23:59 11:59 23:59 Intake Total 1490.000 / 2440.000 1647.917 / 1767.917 120 / 1767.917 Output Total 4000 / 4050 350 / 500 150 / 500 Balance -2510.000 / -0746.823 6812.917 / 1267.917 -30 / 1267.917 Intake: IV 1250.000 / 2200.000 1397.917 / 1397.917 Oral 240 / 240 250 / 370 120 / 370 Output: Urine 4000 / 4000 350 / 500 150 / 500 Other: Urine Color [place] Dark Red Urine Appearance Hematuria Clear Comment CBI draining [place] red output no blood clots. Switched from gravity to leg bag in anticipation of d/c. Education provided. Emesis Description None Laboratory Results WBC 15.06 k/cumm (4.4-10.8) H 12/19/18 06:20 RBC 4.10 m/cumm (4.50-6.00) L 12/19/18 06:20 Hgb 12.5 g/dL (13.5-17.5) L 12/19/18 06:20 Hct 36.8 % (40.0-50.0) L 12/19/18 06:20 MCV 89.8 fL (80-95) 12/19/18 06:20 MCH 30.5 pg (27.0-33.0) 12/19/18 06:20 MCHC 34.0 g/dL (32.0-36.0) 12/19/18 06:20 RDW 13.1 % (11.8-14.1) 12/19/18 06:20 Plt Count 237 x1000/uL (130-400) 12/19/18 06:20 MPV 10.5 fL (8.0-11.0) 12/19/18 06:20 Sodium 140 mmol/L (136-145) 12/19/18 06:20 Potassium 4.2 mmol/L (3.5-5.1) 12/19/18 06:20 Chloride 106 mmol/L (98-107) 12/19/18 06:20 Carbon Dioxide 21.7 mmol/L (21.0-32.0) 12/19/18 06:20 Anion Gap 12.3 mmol/L (3-11) H 12/19/18 06:20 BUN 46 mg/dL (7-18) H 12/19/18 06:20 Creatinine 2.39 mg/dL (0.70-1.30) H 12/19/18 06:20 Estimated GFR/1.73 m2 28.49 (mL/min/1.73m2) 12/19/18 06:20 Glucose 126 mg/dL (70-100) H 12/19/18 06:20 Calcium 7.8 mg/dL (8.5-10.1) L 12/19/18 06:20
[2018-12-19] MEDS: Oxybutynin 5 MG TAB PO (20:25)
[2018-12-19 23:40] VITALS: BP 123/75; PULSE 62; RESP 17; TEMP 37; O2SAT 98
[2018-12-20] MEDS: traMADol 50 MG TAB PO (02:00)
--- NOTE | 2018-12-20 02:43 | NUR.NOTE ---
Nursing Note: Beginning of the shift, pt complained of having fullness in his bladder area as if clogged and leakage around the penis noted of clear urine. MD contacted and ordered to start CBI, pt was relieved. At HS, Ditropan given as requested and tylenol given at 2230 hrs. and with good effet. At 0130 hrs. pt was out of bed and went to bathroom and leakage from the penis again observed this time in large amount. Manually irrigated by charger and obtained big blood clots, Continue bladder irrigation after with clear output. Toradol given and pt is quietly resting on bed.
[2018-12-20] MEDS: Acetaminophen 325 MG TAB 650 MG PO ×2 (03:41→12:21)
[2018-12-20 07:34] LABS: Anion Gap 10.6 mmol/L (3-11); BUN 39 mg/dL (7-18); CO2 21.4 mmol/L (21.0-32.0); CREATININE 1.88 mg/dL (0.70-1.30); Calcium 8.6 mg/dL (8.5-10.1); Chloride 109 mmol/L (98-107); Estimated GFR 37.58 (mL/min/1.73m2); Glucose 108 mg/dL (70-100); Potassium 4.2 mmol/L (3.5-5.1); Sodium 141 mmol/L (136-145)
[2018-12-20 08:00] VITALS: BP 112/72; PULSE 72; RESP 16; TEMP 36.5; O2SAT 94
[2018-12-20] MEDS: buPROPion-CR 150 MG TABCR 300 MG PO (09:10)
[2018-12-20] MEDS: Multivitamin TAB 1 TAB PO (09:11)
[2018-12-20] MEDS: Docusate Sodium 100 MG CAP PO (09:11)
--- NOTE | 2018-12-20 09:18 | W.PM.PROGNOT ---
Date of Service Date of service: 12/20/18 Time of Service: 09:18 Assessment and Plan (1) Bladder stone: Current visit: No Status: Acute (2) BPH (benign prostatic hyperplasia): Current visit: No Status: Acute We will try discontinuing his bladder irrigation again this morning. If his catheter drains well the rest of the morning, we can discharge him to home with his catheter in place this afternoon. Subjective Interval history since last seen: He had one episode of clot retention overnight requiring hand irrigation. Otherwise, he has been tolerating oral medications. He has not had any fevers or chills. Exam Narrative Exam Narrative: He looks comfortable. He does not appear septic or toxic. His bladder irrigation is clear. I hand irrigated his catheter and did not obtain any additional clots. He is awake and alert. I reviewed his labs. His creatinine is coming back down to baseline as expected. His surgical pathology still pending Objective Objective Clinical Data: Abnormal lab results 12/20/18 Range/Units 06:49 Chloride 109 H (98-107) mmol/L BUN 39 H (7-18) mg/dL Creatinine 1.88 H (0.70-1.30) mg/dL Glucose 108 H (70-100) mg/dL Vital Signs Temperature 37.0 C 12/19/18 23:40 Temperature Source Tympanic 12/19/18 23:40 Pulse 62 12/19/18 23:40 Pulse Rhythm Regular 12/20/18 05:41 Respiratory Rate 17 12/19/18 23:40 Respiratory Effort 12/20/18 05:41 Respiratory Depth Normal 12/20/18 05:41 Respiratory Pattern Normal 12/20/18 05:41 Blood Pressure 123/75 12/19/18 23:40 Pulse Oximetry 98 12/19/18 23:40 Respiratory End-tidal CO2 33 12/18/18 12:11 Oxygen Delivery Method Room Air 12/19/18 23:40 Oxygen Flow Rate 0 12/19/18 23:40 Pain Level 5 12/20/18 03:41 Intake & Output 12/19/18 12/19/18 12/20/18 11:59 23:59 11:59 Intake Total 1647.917 / 2006.917 360 / 2006.917 50 / 50 Output Total 350 / 1150 800 / 1150 Balance 1297.917 / 857.917 -440 / 857.917 50 / 50 Intake: IV 1397.917 / 1397.917 50 / 50 Oral 250 / 610 360 / 610 Output: Urine 350 / 1150 800 / 1150 Other: Urine Color [place] Pale Urine Appearance Clear Clots Clear Comment Switched from gravity to leg bag in anticipation of d/c. Education provided. Irrigated x 1 this 3a-7a shift, with one small clot return Laboratory Results WBC 15.06 k/cumm (4.4-10.8) H 12/19/18 06:20 RBC 4.10 m/cumm (4.50-6.00) L 12/19/18 06:20 Hgb 12.5 g/dL (13.5-17.5) L 12/19/18 06:20 Hct 36.8 % (40.0-50.0) L 12/19/18 06:20 MCV 89.8 fL (80-95) 12/19/18 06:20 MCH 30.5 pg (27.0-33.0) 12/19/18 06:20 MCHC 34.0 g/dL (32.0-36.0) 12/19/18 06:20 RDW 13.1 % (11.8-14.1) 12/19/18 06:20 Plt Count 237 x1000/uL (130-400) 12/19/18 06:20 MPV 10.5 fL (8.0-11.0) 12/19/18 06:20 Sodium 141 mmol/L (136-145) 12/20/18 06:49 Potassium 4.2 mmol/L (3.5-5.1) 12/20/18 06:49 Chloride 109 mmol/L (98-107) H 12/20/18 06:49 Carbon Dioxide 21.4 mmol/L (21.0-32.0) 12/20/18 06:49 Anion Gap 10.6 mmol/L (3-11) 12/20/18 06:49 BUN 39 mg/dL (7-18) H 12/20/18 06:49 Creatinine 1.88 mg/dL (0.70-1.30) H 12/20/18 06:49 Estimated GFR/1.73 m2 37.58 (mL/min/1.73m2) 12/20/18 06:49 Glucose 108 mg/dL (70-100) H 12/20/18 06:49 Calcium 8.6 mg/dL (8.5-10.1) 12/20/18 06:49
--- NOTE | 2018-12-20 10:24 | PDOC.CMDIS ---
LACE Index Scoring Tool - Questions: Length of Stay (in days): 2 Acuity (Admit via E.D.?): No E.D. Visits: 0 - Answers: Total Score: 2 Risk of Readmission: Low Risk Care Management Discharge Reason for Hospitalization: Bladder stone Discharge Plan: Rodo will return home today and no services will be needed. He will manage his ownindwelling catheter until removed during his follow up visit with the surgeon. Rodo will drive his own car. Patient/Family Education Needs: Discharge insructions and the importance of keeping the follow up visit appointments.
--- NOTE | 2018-12-20 15:28 | NUR.NOTE ---
Nursing Note: No change in am assessment as far as hr, LS, BS, no pain, spasm, with good outflow into catheter, and improving color towards normal with the urine
[2018-12-20 16:10] VITALS: BP 138/79; PULSE 77; RESP 17; TEMP 36; O2SAT 98
[2018-12-22 23:57] LABS: 1st Constituent: 100% Uric acid
== END 2018-12-20 16:32 | disposition home or self-care (01) | DRG 726 ==
LOC: PDS 11:48 → MS 12:08 → PDS 12-19 10:22
PROVIDERS: Admitting Provider Urology; PCP Nurse Practitioner Family; Visit Provider Urology
PROC: 0TCB8ZZ Extirpation of Matter from Bladder, Via Natural or Artificial Opening Endoscopic (ICD-10-PCS; CPT 52317; principal; 2018-12-18 07:30)
PROC: 0VT08ZZ Resection of Prostate, Via Natural or Artificial Opening Endoscopic (ICD-10-PCS; CPT 52601; 2018-12-18 07:30)
DX: N40.0 Benign prostatic hyperplasia without lower urinary tract symptoms (principal); N41.0 Acute prostatitis; N41.1 Chronic prostatitis; R97.20 Elevated prostate specific antigen [PSA]; R31.0 Gross hematuria; N21.0 Calculus in bladder
CPT/HCPCS: 52317; 52601; 36415; 80048; 85027; 88305; NC; 82365; J0690; J1100; J1885; J2370; J2405

== ENCOUNTER 2018-12-20 19:29 | Emergency (ER) | payer MEDICAID, SELFPAY ==
[2018-12-20 19:38] VITALS: BP 155/98; PULSE 112; RESP 18; TEMP 37; O2SAT 96
--- NOTE | 2018-12-20 19:40 | ED.GENADUL_ITS ---
Discharge Plan Disposition Patient Disposition: HOME Condition: Stable Discharge Details Chief Complaint: Urinary Clinical Impression: Mcmanus catheter present Primary Care Provider: Alysia Campbell ED Provider: Rodo Talavera Home Meds and New Rx's Prescriptions: No Action bupropion HCl [Wellbutrin SR] 150 MG tablet extended release 12 hr 300 mg PO DAILY RF: 0 saw palmetto 160 mg Capsule 160 mg PO DAILY RF: 0 multivitamin Capsule 1 cap PO QAM RF: 0 tramadol 50 mg Tablet 50 mg PO Q6H PRN PRNQty: 20 RF: 0 sulfamethoxazole-trimethoprim 800-160 mg tablet 1 tab PO BID Qty: 10 RF: 0 Discharge Instructions Instructions: Mcmanus Catheter Placement and Care (ED), Urinary Leg Bag (GEN) Medical Decision Making pt was just d/c'd today with mcmanus in place after having kidney stone. He comes in tonight as he has no overnight bad and isn't sure how to manage the bad. No fevers or other symptoms. Nursing will give him a bag and educate and he will f/u with his providers as scheduled Differential Diagnosis mcmanus catheter bag problem HPI General Mode of arrival: ambulatory . Date/Time Provider Initiated Documentation: 12/20/18 19:32 . Limitations to Documentation: no limitations . Information obtained by: patient . History of Present Illness 52 year old M presents to the emergency department with the chief complaint of issues with mcmanus, and it has been constant. No relieving factors improve symptom(s), No exacerbating factors reported . Patient did receive the following treatments prior to arrival, none Related Data Home Medications Medication Instructions Recorded Confirmed bupropion HCl [Wellbutrin SR] 300 mg PO DAILY 06/24/17 12/18/18 multivitamin 1 cap PO QAM 12/17/18 12/18/18 saw palmetto 160 mg PO DAILY 12/17/18 12/18/18 sulfamethoxazole-trimethoprim 1 tab PO BID #10 tab 12/20/18 tramadol 50 mg PO Q6H PRN PRN #20 tab 12/20/18 Previous Rx's Medication Instructions Recorded sulfamethoxazole-trimethoprim 1 tab PO BID #10 tab 12/20/18 tramadol 50 mg PO Q6H PRN PRN #20 tab 12/20/18 Allergies Allergy/AdvReac Type Severity Reaction Status Date / Time No Known Allergies Allergy Unverified 12/18/18 06:48 General LEOBARDO: 3 Review of Systems Review of Systems All systems reviewed & are unremarkable except as noted in HPI and below Constitutional Denies chills and Denies fever(s) Cardiovascular Denies chest pain and Denies dyspnea Respiratory Denies cough and Denies dyspnea Gastrointestinal Denies abdominal pain, Denies nausea and Denies vomiting PFSH Social History Smoking/Tobacco Use Status: Never Alcohol Intake: current Drug use: Rarely Substance use type: does not use Do you feel safe in your relationship?: Yes Exam Const General: no acute distress Orientation: alert HENMT Head: normal to inspection Ears: external ears normal General nose exam: external nose normal Mouth: moist mucous membranes Eyes General: appearance normal, both eyes and all related structures Neck Neck: normal visual inspection Resp Effort & Inspection: normal respiratory effort and able to speak in complete sentences Cardio Rate: regular rate Skin General skin exam: no rashes or lesions noted Neuro General: alert and oriented x3 Extrem General: normal to inspection Psych Mental Status: mental status grossly normal
--- NOTE | 2018-12-20 19:53 | NUR.NOTE ---
Nursing Note: gave pt over night mcmanus bag and some education on how to change from leg bag to over night bag
== END 2018-12-20 19:50 | disposition home or self-care (01) ==
PROVIDERS: Emergency Provider Emergency Medicine; PCP Nurse Practitioner
DX: R33.8 Other retention of urine (principal); Z46.6 Encounter for fitting and adjustment of urinary device; Z96.0 Presence of urogenital implants
CPT/HCPCS: 99281

== ENCOUNTER 2018-12-22 03:14 | Emergency (ER) | payer MEDICAID, SELFPAY ==
[2018-12-22 03:19] VITALS: BP 126/80; PULSE 102; RESP 18; TEMP 36.6; O2SAT 93
--- NOTE | 2018-12-22 03:28 | ED.GENADUL_ITS ---
Discharge Plan Disposition Patient Disposition: HOME Condition: Stable Discharge Details Chief Complaint: Urinary Clinical Impression: Singh catheter problem Primary Care Provider: Alysia Campbell ED Provider: Elvira Stephenson Home Meds and New Rx's Prescriptions: Continued bupropion HCl [Wellbutrin SR] 150 MG tablet extended release 12 hr 300 mg PO DAILY RF: 0 multivitamin Capsule 1 cap PO QAM RF: 0 tramadol 50 mg Tablet 50 mg PO Q6H PRN PRNQty: 20 RF: 0 sulfamethoxazole-trimethoprim 800-160 mg tablet 1 tab PO BID Qty: 10 RF: 0 Discharge Instructions Instructions: Singh Catheter Placement and Care (ED) Additional Instructions: Take your pain medication that you have as needed and directed. Call Dr. Holly's office tomorrow morning to discuss your symptoms and whether you need an earlier follow-up than December 29. Follow-up with Dr. Holly or return to the emergency department if you develop any fever, abdominal pain, dizziness, shortness of breath, weakness or any other concerns Discharge Data Discharge Date/Time-TO BE ENTERED AT DEPARTURE: 12/22/18 03:45 Discharge Physician: Elvira Stephenson Medical Decision Making 52yo M male who is 5 days status post cystoscopy and bladder stone resection and TURP who presents with complaint of blood clot within Singh catheter tonight. He states it seems that the blood clot has now passed and the urine is flowing. He denies any fever, abdominal pain, nausea or vomiting, chest pain, dizziness or shortness of breath. Vitals within normal limits. Heart rate 102 on arrival which shortly normalized to 80s. O2 sat 98% on room air. Afebrile. Patient appears nontoxic. Abdomen soft and nontender. No CVAT. Do not see indication for lab work or imaging at this time. Singh catheter noted in place with dried blood around meatus. Alex blood noted within Singh bag. The catheter was flushed clear and Singh bag drained. Patient states he wanted more reassurance regarding the blood clot and he maturia. Patient was in the ED 2 days ago for reassurance and management of his Singh bag. Discussed with patient that after his cystoscopy, it is common to have bleeding for 5 to 7 days. He states his follow-up appointment with Dr. Holly is on December 29. He is instructed to call his office tomorrow morning to discuss his symptoms and whether he should follow-up earlier. He is instructed return here if he has any worsening or new concerning symptoms of fever or worsening pain. HPI General Mode of arrival: ambulatory . Date/Time Provider Initiated Documentation: 12/22/18 03:16 . Limitations to Documentation: no limitations . Information obtained by: patient . HPI Narrative: Patient is a 52-year-old male who is 5 days status post cystoscopy with bladder stone removal and TURP who presents with complaint of blood clot within Singh catheter tubing tonight. Patient states he has had chronic right flank pain since his procedure last week which has been well controlled with tramadol. States his pain is currently 1/10. He denies any fever, abdominal pain, nausea, vomiting, chest pain, shortness of breath or dizziness. He states he has had blood in his Singh ca theter bag since the procedure and states sometimes it is worse than other times. Related Data Home Medications Medication Instructions Recorded Confirmed bupropion HCl [Wellbutrin SR] 300 mg PO DAILY 06/24/17 12/22/18 multivitamin 1 cap PO QAM 12/17/18 12/22/18 sulfamethoxazole-trimethoprim 1 tab PO BID #10 tab 12/20/18 12/22/18 tramadol 50 mg PO Q6H PRN PRN #20 tab 12/20/18 12/22/18 Previous Rx's Medication Instructions Recorded sulfamethoxazole-trimethoprim 1 tab PO BID #10 tab 12/20/18 tramadol 50 mg PO Q6H PRN PRN #20 tab 12/20/18 Allergies Allergy/AdvReac Type Severity Reaction Status Date / Time No Known Allergies Allergy Unverified 12/22/18 03:24 General Stated Complaint: Urinary LEOBARDO: 4 Review of Systems Review of Systems All systems reviewed & are unremarkable except as noted in HPI and below Constitutional Reports as per HPI, Denies chills and Denies fever(s) Eyes Denies blurry vision ENT Denies dizziness, Denies sore throat and Denies throat swelling Cardiovascular Denies chest pain and Denies dyspnea Respiratory Denies cough and Denies dyspnea Gastrointestinal Denies abdominal pain, Denies diarrhea and Denies vomiting Genitourinary Reports hematuria, Denies dysuria and Reports flank pain Musculoskeletal Reports back pain and Denies numbness Integumentary/Breasts Denies lesions and Denies rash Neurologic Denies dizziness, Denies focal weakness and Denies numbness Allergic/Immunologic Denies throat swelling [facility] Medical History Pneumothorax (Acute) Pneumothorax on left (Acute) Pneumothorax on right (Acute) BPH (benign prostatic hyperplasia) Depression Varicosities of leg Surgical History H/O prostate biopsy (Resolved) History of cystoscopy (Resolved) Colonoscopy - MAC (11/19/17) Repair of inguinal hernia Social History Smoking/Tobacco Use Status: Never Alcohol Intake: current Drug use: Rarely Substance use type: does not use Do you feel safe in your relationship?: Yes Exam Const General: cooperative, healthy appearing and no acute distress HENMT Head: normal to inspection Face and sinus: normal facial exam Eyes General: appearance normal, both eyes and all related structures EOM: EOM intact bilaterally Neck Neck: normal visual inspection and No submandibular swelling Lymphatic: no lymphadenopathy noted Chest Chest: normal inspection of the chest and no tenderness Resp Effort & Inspection: normal respiratory effort and able to speak in complete sentences Auscultation: clear to auscultation bilaterally Cardio Rate: regular rate Rhythm: regular rhythm GI Inspection: normal to inspection Palpation: soft, not firm, not rigid and nontender Auscultation: normal bowel sounds Penis: normal penis Scrotum: scrotum normal Other: Singh catheter noted in place with dried blood around meatus and tubing. No active bleeding from urethra. Alex blood noted in Singh bag. Back/Spine/Pelvis Back: no CVA tenderness Thoracic/Lumbar Spine: thoracic and lumbar spine normal to inspection Skin General skin exam: no rashes or lesions noted Neuro General: alert, awake and oriented x3 Cognition: normal cognition Speech: speech normal Motor: muscle tone normal throughout Sensory Exam: no sensory deficits noted Extrem General: normal to inspection, full ROM, normal capillary refill, no calf tenderness bilaterally and no edema Psych Appearance: grossly normal Mental Status: mental status grossly normal Speech and Movement: speech and movement normal Affect: normal affect Course Vital Signs Temperature 97.9 F 12/22/18 03:19 Pulse 102 H 12/22/18 03:19 Respiratory Rate 18 12/22/18 03:19 Blood Pressure 126/80 12/22/18 03:19 Pulse Oximetry 93 L 12/22/18 03:19 Temperature 97.9 F 12/22/18 03:19 Temperature Source Temporal Artery Scan 12/22/18 03:19 Pulse 102 H 12/22/18 03:19 Respiratory Rate 18 12/22/18 03:19 Respiratory Effort 12/22/18 03:19 Blood Pressure 126/80 12/22/18 03:19 Pulse Oximetry 93 L 12/22/18 03:19 Pain Level 2 12/22/18 03:22
[2018-12-22 03:44] VITALS: PULSE 84; RESP 16; O2SAT 94
== END 2018-12-22 03:45 | disposition home or self-care (01) ==
LOC: ER 03:42
PROVIDERS: Emergency Provider Physician Assistant; PCP Nurse Practitioner
DX: N99.89 Other postprocedural complications and disorders of genitourinary system (principal); T83.091A Other mechanical complication of indwelling urethral catheter, initial encounter; R33.9 Retention of urine, unspecified
CPT/HCPCS: 99281; 99282

== ENCOUNTER 2018-12-24 15:51 | Emergency (ER) | payer MEDICAID, SELFPAY ==
[2018-12-24 16:19] VITALS: BP 132/82; PULSE 92; RESP 18; TEMP 37.1; O2SAT 96
--- NOTE | 2018-12-24 16:21 | ED.GENADUL_ITS ---
Discharge Plan Disposition Patient Disposition: HOME Condition: Improving Discharge Details Chief Complaint: Urinary Clinical Impression: Malfunction of Singh catheter Primary Care Provider: Alysia Campbell ED Provider: Davie Mcmahon Home Meds and New Rx's Prescriptions: Continued bupropion HCl [Wellbutrin SR] 150 MG tablet extended release 12 hr 300 mg PO DAILY RF: 0 multivitamin Capsule 1 cap PO QAM RF: 0 tramadol 50 mg Tablet 50 mg PO Q6H PRN PRNQty: 20 RF: 0 sulfamethoxazole-trimethoprim 800-160 mg tablet 1 tab PO BID Qty: 10 RF: 0 Discharge Instructions Additional Instructions: Follow-up with Dr. Holly in clinic on December 26. Return if you develop a fever, recurrent retention of urine, or any other acute concerns Continue your prescribed medications Medical Decision Making 52-year-old male presents from home postop day #6 status post TURP. His postoperative course was complicated by hematuria requiring flushing of his catheter. Was discharged home with a Singh catheter in place and leg bag. He is to follow-up with Dr. Holly in clinic on Saturday. Upon initial presentation the patient's vital signs are unremarkable, his exam is reassuring with exception of indwelling Singh catheter. Catheter was flushed with saline, with clear effluent and persistent collection of urine. Patient was able to drink liquids without difficulty. As he does have pre-standing follow-up for voiding trial, I feel what is likely catheter obstruction from blood clot or precipitate is now resolved and he is appropriate for discharge to home with follow-up in clinic. HPI General Mode of arrival: ambulatory . Date/Time Provider Initiated Documentation: 12/24/18 16:07 . Limitations to Documentation: no limitations . Information obtained by: patient . History of Present Illness 52 year old M presents to the emergency department with the chief complaint of Question clotted Singh cath, described as moderate, Quality is described as constant, and is localized to the abdomen and pelvis. Patient reports no radiation. Patient started experiencing this minute(s) and it has been constant. No relieving factors improve symptom(s), No exacerbating factors reported . P atient notes denies fever/chills and nausea/vomiting. Patient did receive the following treatments prior to arrival, none Related Data Home Medications Medication Instructions Recorded Confirmed bupropion HCl [Wellbutrin SR] 300 mg PO DAILY 06/24/17 12/22/18 multivitamin 1 cap PO QAM 12/17/18 12/22/18 sulfamethoxazole-trimethoprim 1 tab PO BID #10 tab 12/20/18 12/22/18 tramadol 50 mg PO Q6H PRN PRN #20 tab 12/20/18 12/22/18 Previous Rx's Medication Instructions Recorded sulfamethoxazole-trimethoprim 1 tab PO BID #10 tab 12/20/18 tramadol 50 mg PO Q6H PRN PRN #20 tab 12/20/18 Allergies Allergy/AdvReac Type Severity Reaction Status Date / Time No Known Allergies Allergy Unverified 12/22/18 03:24 General LEOBARDO: 4 Review of Systems Review of Systems No fever. No vomiting. Positive bowel movements. 6 systems reviewed and otherwise negative [facility] Medical History Pneumothorax (Acute) Pneumothorax on left (Acute) Pneumothorax on right (Acute) BPH (benign prostatic hyperplasia) Depression Varicosities of leg Surgical History H/O prostate biopsy (Resolved) History of cystoscopy (Resolved) Colonoscopy - MAC (11/19/17) Repair of inguinal hernia Social History Smoking/Tobacco Use Status: Never Alcohol Intake: current Drug use: Rarely Substance use type: does not use Do you feel safe in your relationship?: Yes Exam Narrative Exam Narrative: GEN: awake, alert, oriented 3. Pleasant, well groomed, interactive. HEAD: Normocephalic, atraumatic ENT: Mucous membranes moist, oropharynx unremarkable, External ear exam un remarkable EYES: PERRL, EOMI NECK: Full ROM, no EZE, no menigismus CHEST/RESP: Nontender, clear to auscultation bilateral, no wheeze/rhonchi/rales CARDIOVASCULAR: RRR, no murmur, rub emely. 2+ Rad pulse bilateral ABDOMEN: Soft, nontender, no mass. +Bowel sounds. Singh catheter in place. Penis exam unremarkable EXT: Full ROM, no edema, no rash Neuro: Grossly normal neurologic exam, conversant, interactive. Psych: Speech fluent, thoughts congruent, affect normal
== END 2018-12-24 17:30 | disposition home or self-care (01) ==
PROVIDERS: Emergency Provider Emergency Medicine; PCP Nurse Practitioner
DX: T83.031A Leakage of indwelling urethral catheter, initial encounter (principal); N99.89 Other postprocedural complications and disorders of genitourinary system; Z96.0 Presence of urogenital implants
CPT/HCPCS: 99281; 99282

== ENCOUNTER 2019-01-20 05:33 | Emergency (ER) | payer MEDICAID, SELFPAY ==
[2019-01-20 05:39] VITALS: BP 150/87; PULSE 86; RESP 16; TEMP 36.6; O2SAT 97
[2019-01-20 06:28] LABS: Abs Immature Grans 0.05 k/cumm (0.0-0.09); Absolute Basophil Count 0.06 k/cumm (0.0-0.2); Absolute Eosinophil Count 0.43 k/cumm (0.0-0.7); Absolute Monocyte Count 0.76 k/cumm (0.11-0.7); Absolute Neutrophil Count 5.98 k/cumm (1.2-6.7); Basophils % 0.6; Eosinophils % 4.3; HCT 40.3 % (40.0-50.0); HGB 13.6 g/dL (13.5-17.5); Immature Grans % 0.5; Lymphocytes % 27.8; Mean Corp. HGB Concentration 33.7 g/dL (32.0-36.0); Mean Corpuscular Hemoglobin 30.4 pg (27.0-33.0); Mean Corpuscular Volume 90.2 fL (80-95); Mean Platelet Volume 10.1 fL (8.0-11.0); Monocytes % 7.5; Neutrophils % 59.3; Platelet Count 295 x1000/uL (130-400); RBC 4.47 m/cumm (4.50-6.00); RBC Distribution Width 13.9 % (11.8-14.1); White Blood Cell Count 10.08 k/cumm (4.4-10.8)
--- NOTE | 2019-01-20 06:38 | W.ED.GENAD ---
Discharge Plan Disposition Patient Disposition: HOME Condition: Good Discharge Details Chief Complaint: Urinary Clinical Impression: Hematuria Primary Care Provider: Alysia Campbell ED Provider: Ignacio Chase Home Meds and New Rx's Prescriptions: No Action bupropion HCl [Wellbutrin SR] 150 MG tablet extended release 12 hr 300 mg PO DAILY RF: 0 multivitamin Capsule 1 cap PO QAM RF: 0 Myrbetriq 50 mg Tablet Extended Release 24 Hr 50 mg PO DAILY RF: 0 Discharge Instructions Instructions: Hematuria (ED) Additional Instructions: At this point you are able to urinate, and your clots of seem to resolve. Please contact Dr. Holly in follow-up promptly for reassessment. If you notice any worsening of your symptoms, or any new symptoms such as worsening hematuria, clots, inability to urinate, vomiting, diarrhea, fever, chills, shortness of breath, chest pain, numbness, weakness, or fainting , please return immediately to the emergency department for reevaluation. As always, it was a pleasure participating in your medical care today. Referrals: Amador Holly MD [ [facility] STAFF PHYSICIAN] - Medical Decision Making This is a pleasant 53-year-old male with a past medical history of a notable uric acid bladder stone with lithotripsy and TURP [address] Holly. Since then he has been doing well with no significant problems. Unfortunately over the last 24 to 48 hours he has had notable hematuria and clots. This evening he passed more more clots and eventually got to the point where he was unable to urinate anymore. Came into the ER for further evaluation. Here in the ER while trying to pee he actually passed a very large clot is been peeing well since then only a small amount of blood. He has no flank pain, abdominal pain, no nausea or vomiting. Vital signs are stable. Laboratory work-up demonstrates a stable hemoglobin and hematocrit, no significant abnormalities. The patient is refusing a three-way Singh catheter at this time which I do feel is certainly reasonable. We will continue to observe to make sure that he is still able to urinate. If he is able to continue to urinate feel he can be safely discharged home with close follow-up with Dr. Holly. 7:56 AM Patient is feeling much better, he is urinating and his urine is become notably more clean. No severe hematuria anymore. Urinalysis shows notable hematuria. Nitrate negative. No fever, chills or flank pain. This time I feel the patient be safely discharged. I did contact Dr. Holly discussed the case with him. He agrees with the current plan does recommend close follow-up. Patient will be discharged for close follow-up with Dr. Holly. I have extensively reviewed the treatment plan and discharge instructions with the patient. I have addressed all patient concerns at this time. The patient was made aware of what symptoms to monitor for that would warrant a return to the emergency department. Discussed the plan with the patient, they demonstrate verbal understanding and agreement with our assessment and plan at this time. HPI General Date/Time Provider Initiated Documentation: 01/20/19 05:42. HPI Narrative: This is a pleasant 53-year-old male with a past medical history of a bladder stone with lithotripsy, and TURP exactly 1 month ago. This was performed by Dr. Holly. Since then he had been doing okay, he has been having mild spasms, but this is notably improved with Myrbetric. He followed up with Dr. Holly about 10 days ago, and at that time had no significant problems. Unfortunately over the last 24 to 48 hours he has noticed a notable increase in regular hematuria and large clots, this evening he was unable to get any significant urinary output at all secondary to clots. He did have notable suprapubic pressure and some mild pain, but denies any abdominal pain, chest pain, numbness tingling or weakness. He denies any fever chills or flank pain. He has been hydrating himself at home but this is not improved his symptoms. He is not on any blood thinners. He denies any other complaints or modifying factors. Related Data Home Medications Medication Instructions Recorded Confirmed bupropion HCl [Wellbutrin SR] 300 mg PO DAILY 06/24/17 01/20/19 multivitamin 1 cap PO QAM 12/17/18 01/20/19 mirabegron [Myrbetriq] 50 mg PO DAILY 01/20/19 01/20/19 Allergies Allergy/AdvReac Type Severity Reaction Status Date / Time No Known Allergies Allergy Unverified 01/20/19 05:43 General Stated Complaint: Urinary LEOBARDO: 3 Review of Systems Review of Systems All systems reviewed & are unremarkable except as noted in HPI and below PFSH Surgical History (Updated 01/20/19 @ 05:43 by Anya Christy) Colonoscopy - MAC (11/19/17) H/O prostate biopsy (Resolved) History of cystoscopy (Resolved) Repair of inguinal hernia S/P TURP (status post transurethral resection of prostate) (Acute) Social History Smoking/Tobacco Use Status: Never Alcohol Intake: current Drug use: Rarely Substance use type: does not use Do you feel safe in your relationship?: Yes Exam Narrative Exam Narrative: 1.Const: Well-nourished, Well-developed, appearing stated age 2.Eyes: PERRL, no conjunctival injection, and symmetrical lids. 3.ENT: Atraumatic external nose and ears. Moist MM. Neck: Symmetric, trachea midline, No thyromegaly. 4.CVS: +S1/S2, No murmurs or gallops. Peripheral pulses 2+ and equal in all extremities. Brisk capillary refill in all extremities. 5.RESP: Unlabored respiratory effort. Clear to auscultation bilaterally. No wheezes rales or rhonchi 6.GI: Soft, Nontender/Nondistended, No hepatosplenomegaly. No guarding or rebound. No flank or suprapubic tenderness. Genital exam demonstrates normal male genitalia, no blood at the urethral meatus, no testicular penile shaft tenderness peer 7.MSK: Normocephalic/Atraumatic, Extremities w/o deformity or ttp No cyanosis or clubbing, Normal movement of all extremities 8.Skin: Warm, Dry. No rashes or lesions. 9.Neuro: pencil maker II-XII grossly intact. Sensation grossly intact, no focal neurologic deficits. 10.Psych: (AAO) x3. Appropriate mood and affect Course Vital Signs Temperature 36.6 C 01/20/19 05:39 Pulse 86 01/20/19 05:39 Respiratory Rate 16 01/20/19 05:39 Blood Pressure 150/87 H 01/20/19 05:39 Pulse Oximetry 97 01/20/19 05:39 Temperature 36.6 C 01/20/19 05:39 Temperature Source Oral 01/20/19 05:39 Pulse 86 01/20/19 05:39 Respiratory Rate 16 01/20/19 05:39 Respiratory Effort Non-Labored 01/20/19 05:47 Blood Pressure 150/87 H 01/20/19 05:39 Pulse Oximetry 97 01/20/19 05:39 Oxygen Delivery Method Room Air 01/20/19 05:39 Oxygen Flow Rate 0 01/20/19 05:39
[2019-01-20 06:54] LABS: ALT 24 U/L (12-78); Alkaline Phosphatase 85 U/L (46-116); Anion Gap 13.5 mmol/L (3-11); BUN 32 mg/dL (7-18); Bilirubin, Total 0.3 mg/dL (0.2-1.0); CO2 21.5 mmol/L (21.0-32.0); CREATININE 1.13 mg/dL (0.70-1.30); Calcium 8.7 mg/dL (8.5-10.1); Chloride 102 mmol/L (98-107); Glucose 129 mg/dL (70-100); Potassium 3.6 mmol/L (3.5-5.1); Sodium 137 mmol/L (136-145); Total Protein 7.6 g/dL (6.4-8.2)
[2019-01-20 07:14] LABS: AST 11 U/L (15-37)
[2019-01-20 07:42] LABS: Bilirubin Large (Negative); Blood Large (Negative); Clarity Cloudy (Clear); Glucose Negative (Negative); Ketones 15 mg/dL (Negative); Leukocyte Esterase Large (Negative); Nitrite Negative (Negative)
[2019-01-20 07:47] LABS: RBC >50 (0-2)
[2019-01-20 07:49] LABS: C & S Indicated? Yes
[2019-01-20 08:02] VITALS: BP 133/82; PULSE 69; RESP 18; TEMP 36.9; O2SAT 98
== END 2019-01-20 08:04 | disposition home or self-care (01) ==
PROVIDERS: Emergency Provider Student in an Organized Health Care Education/Training Program; PCP Nurse Practitioner
DX: R31.9 Hematuria, unspecified (principal); Z98.890 Other specified postprocedural states
CPT/HCPCS: 36415; 80053; 99283; 81003; 81015; 85025; 87086

== ENCOUNTER 2019-03-11 22:29 | Outpatient (REF) | payer MEDICAID, SELFPAY | END 2019-03-11 22:49 | LOC: NCHCN 22:29 | PROVIDERS: PCP Nurse Practitioner; Visit Provider Nurse Practitioner Family | DX: R31.9 Hematuria, unspecified (principal) | CPT/HCPCS: 87086 ==

== ENCOUNTER 2019-03-16 16:39 | Outpatient (REF) | payer MEDICAID, SELFPAY | END 2019-03-16 16:59 | LOC: LBN 16:39 | PROVIDERS: PCP Nurse Practitioner; Visit Provider Nurse Practitioner Gerontology | DX: R35.0 Frequency of micturition (principal); N40.0 Benign prostatic hyperplasia without lower urinary tract symptoms | CPT/HCPCS: 87086 ==

== ENCOUNTER 2019-10-15 12:19 | Emergency (ER) | payer MEDICAID, SELFPAY ==
[2019-10-15] VITALS (15 sets, daily range): BP systolic 135–160; BP diastolic 76–97; PULSE 68–84; RESP 15–29; TEMP 36.7–37; O2SAT 96–97
[2019-10-15] MEDS: Normal Saline Flush 10 ML SYR IVP (12:40)
--- NOTE | 2019-10-15 12:41 | DI.RAD_ITS ---
EXAM: XR CHEST 1V IN DI DEPT CLINICAL HISTORY: <cough, r/o consolidation> TECHNIQUE: 2D digital imaging was performed. COMPARISON: CT renal colic wo from 02/27/2018 XR ABDOMEN FLAT PLATE from 09/25/2018 FINDINGS: LUNGS: Clear. No infiltrates are seen. No pleural abnormality seen. HEART: Normal. MEDIASTINUM: Normal. OTHER FINDINGS: Suture material is noted overlying the area of the sternoclavicular joints. IMPRESSION: No acute pulmonary findings. DATA REPOSITORY: RADIATION DOSE DELIVERED:
[2019-10-15] MEDS: Normal Saline 1,000 ML 1000 ML IV (12:50)
[2019-10-15 12:58] LABS: Abs Immature Grans 0.02 k/cumm (0.0-0.09); Absolute Basophil Count 0.04 k/cumm (0.0-0.2); Absolute Eosinophil Count 0.18 k/cumm (0.0-0.7); Absolute Lymphocyte Count 2.27 k/cumm (1.2-3.4); Absolute Neutrophil Count 5.69 k/cumm (1.2-6.7); Basophils % 0.4; HGB 15.7 g/dL (13.5-17.5); Immature Grans % 0.2 %; Lymphocytes % 25.5; Mean Corp. HGB Concentration 34.1 g/dL (32.0-36.0); Mean Corpuscular Hemoglobin 30.3 pg (27.0-33.0); Mean Corpuscular Volume 88.6 fL (80-95); Mean Platelet Volume 9.8 fL (8.0-11.0); Monocytes % 7.9; Platelet Count 293 x1000/uL (130-400); RBC 5.19 m/cumm (4.50-6.00); RBC Distribution Width 13.1 % (11.8-14.1)
--- NOTE | 2019-10-15 13:05 | W.ED.GENAD ---
Discharge Plan Disposition Patient Disposition: HOME Condition: Good Discharge Details Chief Complaint: GenMedical Clinical Impression: Hand tingling, Facial tingling, Aches Primary Care Provider: Rosa Maria Gomes ED Provider: Ignacio Chase Home Meds and New Rx's Prescriptions: No Action bupropion HCl [Wellbutrin SR] 150 MG tablet extended release 12 hr 300 mg PO DAILY RF: 0 multivitamin Capsule 1 cap PO QAM RF: 0 Discharge Instructions Instructions: Transient Ischemic Attack (ED), Dehydration (ED) Additional Instructions: At this time your symptoms may have been caused by small mini stroke or dehydration. You are in the low risk category, and as we discussed we will be sending you home. You will be contacted if your coronavirus tests are positive. If you have not received any results in 48 hours please contact the ED. Please take a daily aspirin. Please drink plenty of fluids. If you notice any worsening of your symptoms, or any new symptoms such as vomiting, diarrhea, fever, chills, shortness of breath, chest pain, numbness, weakness, or fainting , please return immediately to the emergency department for reevaluation. Please follow up with your primary care provider as soon as possible for reassessment and reevaluation. As always, it was a pleasure participating in your medical care today. Referrals: Rosa Maria Gomes, [employer] [Primary Care Provider] - Medical Decision Making 53-year-old male with a past medical history of kidney stone, BPH, depression, presents today for evaluation of right-sided neurologic symptoms as well as mild aches. Patient states that for the last 2 to 3 days he has had mild aches, and fatigue. He denies any fever, he denies any chills or significant cough. Patient states that the symptoms have been relatively unremarkable otherwise. He has not been social distancing. However today the patient states that he had relatively sudden onset right-sided tingling in his face, he thought his smile was atypical and slightly off, and his right arm felt slightly heavy and tingly. The symptoms occurred 2 hours prior to arrival and resolved prior to arrival here in the ED. He denies any history of symptoms like this before. He denies any headache, vision change, chest pain, chest tightness, shortness of breath, numbness, tingling, weakness, vomiting, diarrhea. He denies any other modifying factors. He denies any history of stroke, or known contact with a coronavirus patient. No other complaints at this time. Physical exam demonstrates no clinical evidence of meningitis, no abnormal lung sounds. No neurologic deficits whatsoever. Symptoms appearing consistent with significant respiratory disease at this time. Differential for the initial atypical cause of his symptoms is broad, but does include dehydration electrolyte disturbance less likely coronavirus. We will evaluate for these etiologies, get a CT scan of the head, gently rehydrate and reassess. 2:17 PM Patient's laboratory work-up has returned, no significant abnormalities, no evidence of electrolyte abnormality, white count, bandemia or left shift. Troponin is normal, thyroid levels are normal. Flu test is negative. BUN is elevated at 26, creatinine 1, suggestive of mild dehydration, would not be surprised if this is a mild component of what causes symptomatology. Pending coronavirus testing. Chest x-ray negative for acute process, CT head negative for acute process aside for a chronic basal ganglia infarct. I do not feel that this is the cause of his symptoms. I did discuss this with the patient. Right now his symptoms are likely from mild dehydration, potentially from a mild virus, less likely is a TIA. The patient's ABCD 2 score is 2 points, which is in the low risk category. I did discuss with the patient admission/observation to the hospital , and at this time through notable discussion, weighing the risks and benefits, utilizing a shared decision making process, and with a very clear discussion on the benefit of admission and the risks associated with discharge including the unlikely but potential worst case scenario of or lifelong disability the patient has refused admission and would like to go home. Patient is of a appropriate age to make decisions. The patient is of sound mind, appears clinically sober, and has capacity to make decisions by my clinical exam. Respecting the patient's wishes, they will be discharged home. I did recommend starting the patient on a daily aspirin, close follow-up with his PCP as well as drinking plenty of fluids. Discussed red flags which to return. At this time signs and symptoms are clinically inconsistent with stroke, cardiac ischemia, ACS, profound coronavirus infection, or other life-threatening etiology. I have extensively reviewed the treatment plan and discharge instructions with the patient. I have addressed all patient concerns at this time. The patient was made aware of what symptoms to monitor for that would warrant a return to the emergency department. Discussed the plan with the patient, they demonstrate verbal understanding and agreement with our assessment and plan at this time. EKG 12: 35 Rate 73, intervals normal, sinus rhythm, no significant ST elevations or depressions, no evidence of STEMI. Notable Q wave in lead III, no prior EKG for comparison. FINDINGS: LUNGS: Clear. No infiltrates are seen. No pleural abnormality seen. HEART: Normal. MEDIASTINUM: Normal. OTHER FINDINGS: Suture material is noted overlying the area of the sternoclavicular joints. IMPRESSION: No acute pulmonary findings. FINDINGS: Ventricles and Extra axial spaces: Normal in size and morphology for the patient's age. Hemorrhage: None. Cerebral parenchyma: There is a small area of low attenuation adjacent to the left lateral ventricle and in the left basal ganglia, consistent with old lacunar infarcts. There is mild frontal atrophy. No acute infarct, hemorrhage or mass is seen. Midline shift: None. Brainstem/Cerebellum: Normal. Calvarium: Normal. Visualized Paranasal sinuses/Mastoids: Clear. Soft Tissues: Unremarkable. IMPRESSION: Old left basal ganglia lacunar infarct. No acute intracranial process. HPI General Date/Time Provider Initiated Documentation: 10/15/19 12:21. HPI Narrative: 53-year-old male with a past medical history of kidney stone, BPH, depression, presents today for evaluation of right-sided neurologic symptoms as well as mild aches. Patient states that for the last 2 to 3 days he has had mild aches, and fatigue. He denies any fever, he denies any chills or significant cough. Patient states that the symptoms have been relatively unremarkable otherwise. He has not been social distancing. However today the patient states that he had relatively sudden onset right-sided tingling in his face, he thought his smile was atypical and slightly off, and his right arm felt slightly heavy and tingly. The symptoms occurred 2 hours prior to arrival and resolved prior to arrival here in the ED. He denies any history of symptoms like this before. He denies any headache, vision change, chest pain, chest tightness, shortness of breath, numbness, tingling, weakness, vomiting, diarrhea. He denies any other modifying factors. He denies any history of stroke, or known contact with a coronavirus patient. No other complaints at this time. Related Data Home Medications Medication Instructions Recorded Confirmed bupropion HCl [Wellbutrin SR] 300 mg PO DAILY 06/24/17 10/15/19 multivitamin 1 cap PO QAM 12/17/18 10/15/19 Allergies Allergy/AdvReac Type Severity Reaction Status Date / Time No Known Allergies Allergy Unverified 10/15/19 12:32 General Stated Complaint: GenMedical LEOBARDO: 3 Review of Systems All systems reviewed & are unremarkable except as noted in HPI and below PFSH Surgical History (Updated 01/20/19 @ 05:43 by Anya Christy) Colonoscopy - MAC (11/19/17) H/O prostate biopsy (Resolved) History of cystoscopy (Resolved) Repair of inguinal hernia S/P TURP (status post transurethral resection of prostate) (Acute) Social History Smoking/Tobacco Use Status: Never Alcohol Intake: current Alcohol Intake frequency: a few times a week Drug use: Never Substance use type: does not use Do you feel safe at home: Yes Do you feel safe in your relationship?: Yes Exam Narrative Exam Narrative: 1.Const: Well-nourished, Well-developed, appearing stated age 2.Eyes: PERRL, no conjunctival injection, and symmetrical lids. 3.ENT: Atraumatic external nose and ears. Moist MM. Neck: Symmetric, trachea midline, No thyromegaly. No facial asymmetry. 4.CVS: +S1/S2, No murmurs or gallops. Peripheral pulses 2+ and equal in all extremities. Brisk capillary refill in all extremities. 5.RESP: Unlabored respiratory effort. Clear to auscultation bilaterally. No wheezes rales or rhonchi 6.GI: Soft, Nontender/Nondistended, No hepatosplenomegaly. No guarding or rebound. 7.MSK: Normocephalic/Atraumatic, Extremities w/o deformity or ttp No cyanosis or clubbing, Normal movement of all extremities 8.Skin: Warm, Dry. No rashes or lesions. 9.Neuro: hand drawer in helper II-XII grossly intact. Sensation grossly intact, no focal neurologic deficits. All 6 cardinal planes of vision are fully intact. No evidence of rotatory or vertical nystagmus. The patient demonstrated a normal [id number]-dyliub, good dexterity. There was no evidence of dysdiadochokinesia. Patient was able to ambulate without difficulty. There was no wide-based gait. Romberg testing was normal. Bqjg-pp-xkau testing was normal. Sensation was intact bilaterally as well as muscle strength bilaterally for all extremities. Patient was able to verbalize butter cup with no slurring, or miss pronunciation. 10.Psych: (AAO) x3. Appropriate mood and affect Course Vital Signs Vital signs: Vital Signs Temperature 37 C 10/15/19 12:25 Pulse 83 10/15/19 12:25 Respiratory Rate 18 10/15/19 12:25 Blood Pressure 149/79 H 10/15/19 12:25 Pulse Oximetry 96 10/15/19 12:25 Temperature 37 C 10/15/19 12:25 Temperature Source Temporal Artery Scan 10/15/19 12:25 Pulse 83 10/15/19 12:25 Respiratory Rate 18 10/15/19 12:25 Respiratory Effort Non-Labored 10/15/19 12:31 Blood Pressure 149/79 H 10/15/19 12:25 Blood Pressure Position Sitting 10/15/19 12:25 Pulse Oximetry 96 10/15/19 12:25 Oxygen Delivery Method Room Air 10/15/19 12:25 Oxygen Flow Rate 0 10/15/19 12:25 Pain Level 0 10/15/19 12:25 Lab/Test Results Lab/Test Results: 10/15/19 12:45 Nasopharynx Influenza Types A,B Antigen - Pending Laboratory Tests Range/Units 10/15/19 12:40 WBC (4.4-10.8) k/cumm 8.90 RBC (4.50-6.00) m/cumm 5.19 Hgb (13.5-17.5) g/dL 15.7 Hct (40.0-50.0) % 46.0 MCV (80-95) fL 88.6 MCH (27.0-33.0) pg 30.3 MCHC (32.0-36.0) g/dL 34.1 RDW (11.8-14.1) % 13.1 Plt Count (130-400) x1000/uL 293 MPV (8.0-11.0) fL 9.8 Immature Gran % % 0.2 Neutrophils % 64.0 Lymphocytes % 25.5 Monocytes % 7.9 Eosinophils % 2.0 Basophils % 0.4 Absolute Neutrophils (1.2-6.7) k/cumm 5.69 Absolute Lymphocytes (1.2-3.4) k/cumm 2.27 Absolute Monocytes (0.11-0.7) k/cumm 0.70 Absolute Eosinophils (0.0-0.7) k/cumm 0.18 Absolute Basophils (0.0-0.2) k/cumm 0.04
--- NOTE | 2019-10-15 13:18 | DI.CT_ITS ---
EXAM: CT HEAD WO CLINICAL HISTORY: tingling on right. TECHNIQUE: Imaging Protocol: Axial computed tomography images with coronal and sagittal reformatted images were created and reviewed COMPARISON: No exams were available for comparison FINDINGS: Ventricles and Extra axial spaces: Normal in size and morphology for the patient's age. Hemorrhage: None. Cerebral parenchyma: There is a small area of low attenuation adjacent to the left lateral ventricle and in the left basal ganglia, consistent with old lacunar infarcts. There is mild frontal atrophy. No acute infarct, hemorrhage or mass is seen. Midline shift: None. Brainstem/Cerebellum: Normal. Calvarium: Normal. Visualized Paranasal sinuses/Mastoids: Clear. Soft Tissues: Unremarkable. IMPRESSION: Old left basal ganglia lacunar infarct. No acute intracranial process. RADIATION DOSE DELIVERED: DATA REPOSITORY: All CT scans at this facility are submitted to the National Radiology Data Registry (NRDR) Dose Index Registry (DIR) with the [employer] (ACR). RADIATION OPTIMIZATION: All CT scans at this facility use at least one of these dose optimization te chniques: automated exposure control; mA and/or kV adjustment per patient size (includes targeted exa ms where dose is matched to clinical indication); or iterative reconstruction.
[2019-10-15 13:20] LABS: ALT 43 U/L (16-63); AST 17 U/L (15-37); Albumin 3.9 g/dL (3.4-5.0); Alkaline Phosphatase 89 U/L (46-116); Anion Gap 7.9 mmol/L (3-11); BUN 26 mg/dL (7-18); Bilirubin, Total 0.4 mg/dL (0.2-1.0); CO2 25.1 mmol/L (21.0-32.0); CREATININE 1.04 mg/dL (0.70-1.30); Chloride 105 mmol/L (98-107); Glucose 104 mg/dL (74-106); Potassium 3.9 mmol/L (3.5-5.1); Sodium 138 mmol/L (136-145); TSH (W/Ref FT4) 2.14 uIU/mL (0.36-3.74); Total Protein 7.2 g/dL (6.4-8.2)
[2019-10-15 13:21] LABS: Troponin I < 0.05 ng/Ml (<0.06)
[2019-10-15 13:31] LABS: INR 1.1 (0.9-1.1); PTT Activated 24.9 sec (21.0-31.4); Prothrombin Time 10.8 sec (9.3-11.0)
[2019-10-16 19:45] LABS: COVID-19 RT-PCR UVMMC Result Negative (Negative)
== END 2019-10-15 14:00 | disposition home or self-care (01) ==
LOC: ER 14:06
PROVIDERS: Emergency Provider Student in an Organized Health Care Education/Training Program; PCP Nurse Practitioner Gerontology
DX: R20.2 Paresthesia of skin (principal); R52 Pain, unspecified; E86.0 Dehydration
CPT/HCPCS: 80053; 87449; 93005; 96360; 99285; U0003; 70450; 71045; 84443; 84484; 85025; 85610; 85730; 93010; 99284

== ENCOUNTER 2019-10-16 15:30 | Emergency (ER) | payer MEDICAID, SELFPAY ==
[2019-10-16 15:38] VITALS: BP 151/98; PULSE 84; TEMP 36.9; O2SAT 97
[2019-10-16 15:41] VITALS: RESP 18
--- NOTE | 2019-10-16 16:04 | ED.GENADUL_ITS ---
Discharge Plan Disposition Patient Disposition: HOME Condition: Good Discharge Details Chief Complaint: GenMedical Clinical Impression: Christopher's palsy Primary Care Provider: Rosa Maria Gomes ED Provider: Ignacio Chase Home Meds and New Rx's Prescriptions: New valacyclovir 1 gram tablet 1,000 mg PO TID 7 Days Qty: 21 RF: 0 prednisone 20 mg tablet 20 mg PO DAILY Qty: 42 RF: 0 doxycycline hyclate 100 mg tablet 100 mg PO BID 10 Days Qty: 20 RF: 0 No Action bupropion HCl [Wellbutrin SR] 150 MG tablet extended release 12 hr 300 mg PO DAILY RF: 0 multivitamin Capsule 1 cap PO QAM RF: 0 glucosamine sulfate [Glucosamine] 500 mg Tablet 500 mg PO BID RF: 0 aspirin 81 mg Tablet,Chewable 81 mg PO DAILY RF: 0 Discharge Instructions Instructions: Christopher Palsy (ED) Additional Instructions: At this time your MRI is negative for evidence of stroke, however with your previous history of what looks to be an old stroke I still think it is reasonable to take a daily aspirin. Your symptoms currently are concerning for Christopher's palsy which is a nerve irritation and inflammation causing the paralysis on the right side of your face. It is likely from a virus, or potentially Lyme disease. Please take the antiviral medication, antibiotic doxycycline, and the steroid prednisone as directed. Please take these on a full stomach. Avoid any significant sun exposure. Please tape your eye shut at night so that it does not stay open or get irritated. 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 If you notice any worsening of your symptoms, or any new symptoms such as vomiting, diarrhea, fever, chills, shortness of breath, chest pain, numbness, weakness, or fainting , please return immediately to the emergency department for reevaluation. Please follow up with your primary care provider as soon as possible for reassessment and reevaluation. As always, it was a pleasure participating in your medical care today. Referrals: Rosa Maria Gomes NP [Primary Care Provider] - Medical Decision Making 53-year-old male with a past medical history of BPH, kidney stones, presents today for tingling and right-sided facial droop. Patient was here yesterday, when he was here yesterday he noticed an onset of mild right-sided facial droop and tingling in his right face and right arm. These resolved by the time he arrived in the ER. At that time he was seen and assessed and had no neurologic deficits, no facial droop or other abnormality. CT scan of the head was negative, ABCD 2 risk or was in the low risk category, admission was offered, but the patient preferred to go home as he was asymptomatic. He was started on a daily aspirin. Today he noticed that when he woke up his symptoms had returned and he felt that they were worse. Throughout the day noticed continued right-sided facial droop, contacted his PCP who recommended that he come in for MRI. Aside for the symptoms on the face the patient has no other complaints whatsoever. He denies headache, vision changes, numbness tingling or weakness. He denies chest pain or shortness of breath. No other modifying factors. Physical exam demonstrates notable right-sided facial droop, difficulty closing right eye, and no sparing of the right forehead. Signs and symptoms are certainly concerning for Christopher's palsy. Symptoms appear notably different unchanged from yesterday. However because of the findings yesterday, as well as discussion with his PCP, we will get MRI for further evaluation. Differential also does include MS, or TIA stroke although less likely. We will add a Lyme test as well. 5:04 PM MRI is negative for acute process. Signs and symptoms at this time are notably clinically consistent with Christopher's palsy and inconsistent with aneurysm or stroke or MS. I do still feel that it is reasonable that the patient continue his daily aspirin as he has had evidence of an old small stroke on his previous CT scan. We will start the patient on steroids, antivirals and doxycycline. We will send for Lyme testing. At this time though I feel the patient be discharged home. We had a long discussion regarding the importance of moisturizing the eye with artificial tears, taping his eye shut at night, and the importance of proper follow-up. I did contact his primary care provider Meena, and discussed the case with her as well including my suspicion and findings. I have extensively reviewed the treatment plan and discharge instructions with the patient. I have addressed all patient concerns at this time. The patient was made aware of what symptoms to monitor for that would warrant a return to the emergency department. Discussed the plan with the patient, they demonstrate verbal understanding and agreement with our assessment and plan at this time. FINDINGS: Brain: No acute infarct. No hemorrhage. Minimal white matter disease. No edema or mass effect. 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 Ventricles: Normal. No ventriculomegaly. Bones/joints: Unremarkable. Soft tissues: Unremarkable. Sinuses: No acute sinusitis. Mastoid air cells: Normal as visualized. No mastoid effusion. Orbits: Unremarkable. IMPRESSION: No acute findings. Thank you for allowing us to participate in the care of your patient. Dictated and Authenticated by: Isacc King MD 10/16/2019 4:36 PM Eastern Time ([place] & [place]) HPI General Date/Time Provider Initiated Documentation: 10/16/19 15:30 . HPI Narrative: 53-year-old male with a past medical history of BPH, kidney stones, presents today for tingling and right-sided facial droop. Patient was here yesterday, when he was here yesterday he noticed an onset of mild right-sided facial droop and tingling in his right face and right arm. These resolved by the time he arrived in the ER. At that time he was seen and assessed and had no neurologic deficits, no facial droop or other abnormality. CT scan of the head was negative, ABCD 2 risk or was in the low risk category, admission was offered, but the patient preferred to go home as he was asymptomatic. He was started on a daily aspirin. Today he noticed that when he woke up his symptoms had returned and he felt that they were worse. Throughout the day noticed continued right-sided facial droop, contacted his PCP who recommended that he come in for MRI. Aside for the symptoms on the face the patient has no other complaints whatsoever. He denies headache, vision changes, numbness tingling or weakness. He denies chest pain or shortness of breath. No other modifying factors. Related Data Home Medications Medication Instructions Recorded Confirmed bupropion HCl [Wellbutrin SR] 300 mg PO DAILY 06/24/17 10/16/19 multivitamin 1 cap PO QAM 12/17/18 10/16/19 aspirin 81 mg PO DAILY 10/16/19 10/16/19 doxycycline hyclate 100 mg PO BID 10 Days #20 tab 10/16/19 glucosamine sulfate [Glucosamine] 500 mg PO BID 10/16/19 10/16/19 prednisone 20 mg PO DAILY #42 tab 10/16/19 valacyclovir 1,000 mg PO TID 7 Days #21 tab 10/16/19 Previous Rx's Medication Instructions Recorded doxycycline hyclate 100 mg PO BID 10 Days #20 tab 10/16/19 prednisone 20 mg PO DAILY #42 tab 10/16/19 valacyclovir 1,000 mg PO TID 7 Days #21 tab 10/16/19 Allergies Allergy/AdvReac Type Severity Reaction Status Date / Time No Known Allergies Allergy Unverified 10/16/19 16:36 General Stated Complaint: GenMedical LEOBARDO: 3 Review of Systems All systems reviewed & are unremarkable except as noted in HPI and below PFSH Surgical History (Updated 01/20/19 @ 05:43 by Anya Christy) Colonoscopy - MAC (11/19/17) H/O prostate biopsy (Resolved) History of cystoscopy (Resolved) Repair of inguinal hernia S/P TURP (status post transurethral resection of prostate) (Acute) Social History Smoking/Tobacco Use Status: Never Alcohol Intake: current Alcohol Intake frequency: a few times a week Drug use: Never Substance use type: does not use Do you feel safe at home: Yes Do you feel safe in your relationship?: Yes Exam Narrative Exam Narrative: 1.Const: Well-nourished, Well-developed, appearing stated age 2.Eyes: PERRL, no conjunctival injection, and symmetrical lids. 3.ENT: Atraumatic external nose and ears. Moist MM. Neck: Symmetric, trachea midline, No thyromegaly. 4.CVS: +S1/S2, No murmurs or gallops. Peripheral pulses 2+ and equal in all extremities. Brisk capillary refill in all extremities. 5.RESP: Unlabored respiratory effort. Clear to auscultation bilaterally. No wheezes rales or rhonchi 6.GI: Soft, Nontender/Nondistended, No hepatosplenomegaly. No guarding or rebound. 7.MSK: Normocephalic/Atraumatic, Extremities w/o deformity or ttp No cyanosis or clubbing, Normal movement of all extremities 8.Skin: Warm, Dry. No rashes or lesions. 9.Neuro: Patient demonstrates notable right-sided facial droop, difficulty closing the right eye. There is no forehead sparing. All 6 cardinal planes of vision are fully intact. No evidence of rotatory or vertical nystagmus. The patient demonstrated a normal ryxypy-[id number]-[id number], good dexterity. There was no evidence of dysdiadochokinesia. Patient was able to ambulate without difficulty. There was no wide-based gait. Romberg testing was normal. Rjaa-[id number] testing was normal. Sensation was intact bilaterally as well as muscle strength bilaterally for all extremities. Patient was able to verbalize butter cup with no slurring, or miss pronunciation. 10.Psych: (AAO) x3. Appropriate mood and affect Course Vital Signs Vital signs: Vital Signs Temperature 36.9 C 10/16/19 15:38 Pulse 84 10/16/19 15:38 Blood Pressure 151/98 H 10/16/19 15:38 Pulse Oximetry 97 10/16/19 15:38 Temperature 36.9 C 10/16/19 15:38 Temperature Source Skin 10/16/19 15:38 Pulse 84 10/16/19 15:38 Respiratory Rate 18 10/16/19 15:41 Respiratory Effort Non-Labored 10/16/19 15:41 Respiratory Depth Normal 10/16/19 15:41 Respiratory Pattern Normal 10/16/19 15:41 Blood Pressure 151/98 H 10/16/19 15:38 Blood Pressure Position Sitting 10/16/19 15:38 Pulse Oximetry 97 10/16/19 15:38 Oxygen Delivery Method Room Air 10/16/19 15:38 Oxygen Flow Rate 0 10/16/19 15:38
--- NOTE | 2019-10-16 16:30 | DI.MRI_ITS ---
EXAM: MR BRAIN WO CLINICAL HISTORY: right sided facial weakness. TECHNIQUE: Multiplanar multisequence MRI was performed. COMPARISON: No exams were available for comparison FINDINGS: MR examination of brain was performed according to the usual protocol. Ventricular system is normal in appearance. There is left lacunar infarct and there are bilateral white matter areas of abnormal signal consistent with microvascular ischemic change, somewhat prominent for this age group. Minimal signal changes also noted in right eric. No other focal signal abnormality identified. Diffusion-weighted imaging shows no evidence of infarct. Susceptibility weighted imaging shows no evidence of intracranial hemorrhage. There is normal flow void in the [id number] vasculature. The orbital and temporal bone structu res appear intact. IMPRESSION: No evidence of acute intracranial process. Findings consistent with microvascular ischemic change, somewhat prominent for this age group. DATA REPOSITORY:
--- NOTE | 2019-10-16 16:36 | DI.VRAD_ITS ---
PROCEDURE INFORMATION: Exam: MR Head Without Contrast Exam date and time: 10/16/2019 4:21 PM Age: 53 years old Clinical indication: Weakness, facial; Patient HX: Right sided facial weakness, started yesterday worse today. ? Stroke ? ms TECHNIQUE: Imaging protocol: MR of the head without contrast. 3D rendering: MIP and/or 3D reconstructed images were created by the technologist. COMPARISON: CT HEAD WO 10/15/2019 1:10 PM FINDINGS: Brain: No acute infarct. No hemorrhage. Minimal white matter disease. No edema or mass effect. 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 Ventricles: Normal. No ventriculomegaly. Bones/joints: Unremarkable. Soft tissues: Unremarkable. Sinuses: No acute sinusitis. Mastoid air cells: Normal as visualized. No mastoid effusion. Orbits: Unremarkable. IMPRESSION: No acute findings. Dictated and Authenticated by: Isacc King MD. Ordering:FIOR Pierre MD
[2019-10-16 17:04] VITALS: BP 158/89; PULSE 70; TEMP 36.7; O2SAT 96
[2019-10-20 01:12] LABS: Anaplasma phagocytophilum Negative (Negative); B. miyamotoi PCR Negative (Negative); Babesia divergens/MO-1 Negative (Negative); Babesia duncani Negative (Negative); Babesia microti Negative (Negative); Ehrlichia chaffeensis Negative (Negative); Ehrlichia ewingii/canis Negative (Negative); Ehrlichia muris eauclairensis Negative (Negative)
[2019-10-20 13:34] LABS: Lyme Ab w Rflx to Lyme Confirm Negative (Negative)
== END 2019-10-16 17:10 | disposition home or self-care (01) ==
PROVIDERS: Emergency Provider Student in an Organized Health Care Education/Training Program; PCP Nurse Practitioner Gerontology
DX: G51.0 Bell's palsy (principal)
CPT/HCPCS: 87798; 99283; 70551; 86618

== ENCOUNTER 2019-11-24 02:22 | Outpatient (CLI) | payer MEDICAID, SELFPAY ==
--- NOTE | 2019-11-24 13:15 | DI.US_ITS ---
EXAM: US RENAL CLINICAL HISTORY: Gross hematuria, R31.0, r/o bladder stone TECHNIQUE: Ultrasound performed using standard protocol. COMPARISON: US PROSTATE US AND NEEDLE BIOPSY from 01/21/2018 FINDINGS: Renal ultrasound was performed according to the usual protocol. There is no evidence of a renal mass or hydronephrosis. There is probable inferior pole left renal nonobstructing 7 millimeter calculus, posterior acoustic shadowing and twinkle artifact are seen. There are multiple bladder calculi. There is also an apparent bladder mass measuring up to 5.4 cm in diameter. Prostatic enlargement is noted, estimated prostatic volume 111 cc. IMPRESSION: Large exophytic bladder mass which appears vascular, highly suspicious for bladder carcinoma. Nonobstructing 7 millimeter left renal calculus. Multiple bladder calculi noted. DATA REPOSITORY:
== END 2019-11-24 02:42 ==
PROVIDERS: PCP Nurse Practitioner Family; Visit Provider Urology
DX: R31.0 Gross hematuria (principal); N32.89 Other specified disorders of bladder; N21.0 Calculus in bladder; N40.0 Benign prostatic hyperplasia without lower urinary tract symptoms
CPT/HCPCS: 76770

== ENCOUNTER 2019-12-11 07:59 | Outpatient (CLI) | payer MEDICAID, SELFPAY ==
[2019-12-11 22:16] LABS: COVID-19 RT-PCR UVMMC Result Negative (Negative)
== END 2019-12-11 08:19 ==
PROVIDERS: PCP Nurse Practitioner Family; Visit Provider Urology
DX: Z11.59 Encounter for screening for other viral diseases (principal)
CPT/HCPCS: U0003

== ENCOUNTER 2019-12-14 15:07 | Inpatient (IN) | payer MEDICAID, SELFPAY ==
[2019-12-14] VITALS (7 sets, daily range): BP systolic 97–142; BP diastolic 58–86; PULSE 66–82; RESP 15–18; TEMP 36.3–36.8; O2SAT 93–98
--- NOTE | 2019-12-14 06:57 | W.PM.HP.N ---
Date of service: 12/14/19 Time of Service: 12:27 Assessment and Plan Assessment and plan (1) Bladder stone: Status: Acute Assessment and plan: We will move forward with holmium laser lithotripsy of his large bladder stone. We had also considered an open cystolithotomy. We will plan on keeping him in the hospital overnight for bladder irrigation to flush out any residual small stone fragments/particles. History of Present Illness History of Present Illness Chief Complaint: Bladder stones Narrative: This is a 53-year-old gentleman who has a history of an elevated PSA. He said prostate biopsies showed no evidence of malignancy. We initially saw him for hematuria and clot retention. He was found to have a massive prostate along with a 2 to 3 cm stone in his bladder. He was treated with holmium laser lithotripsy of stone and transurethral resection of the prostate. He has been voiding with a fairly good stream and has not gone into retention. He has been having intermittent gross hematuria with irritative symptoms. His urine cultures have not shown any type of infection. We arranged for a renal and bladder ultrasound for evaluation. The ultrasound demonstrates a 2 cm stone within the bladder. He is agreeable to holmium laser lithotripsy of his stone. Review of Systems Narrative: No fevers or chills No vision change or dysphasia No diabetes or thyroid No shortness of breath, cough or hemoptysis No chest pain or palpitations No nausea, vomiting, hepatitis, ulcers, jaundice, diarrhea or constipation No seizures, strokes or peripheral neuropathy No bleeding disorders or anemia No gout PFSH Social History Smoking/Tobacco Use Status: Never Alcohol Intake: current Alcohol Intake frequency: a few times a week Alcohol type: beer and wine Drug use: Never Substance use type: does not use Do you feel safe at home: Yes Do you feel safe in your relationship?: Yes Meds Home Medications and Allergies Home Medications Medication Instructions Recorded Confirmed Type bupropion HCl [Wellbutrin SR] 300 mg PO DAILY 06/24/17 12/14/19 History multivitamin 1 cap PO QAM 12/17/18 12/14/19 History aspirin 81 mg PO DAILY 10/16/19 12/14/19 History glucosamine sulfate [Glucosamine] 500 mg PO BID 10/16/19 12/14/19 History Allergies Allergy/AdvReac Type Severity Reaction Status Date / Time No Known Allergies Allergy Unverified 12/14/19 10:57 Exam Narrative Exam Narrative: He is in no current distress. He is cooperative. His vital signs are documented elsewhere His chest wall motion is normal. Neck is supple with no mass His lungs are clear with no guarding or rebound tenderness Cardiac exam shows a regular rate and rhythm His abdomen is soft with no mass He is awake and alert. COVID-19 Screening In the past 14 days, have you traveled outside of [place]?: NO Had IN PERSON contact w/suspected or confirmed C-19 person: No
[2019-12-14] MEDS: Lactated Ringers 1,000 ML 80 ML IV ×2 (11:20→14:40)
[2019-12-14] MEDS: ceFAZolin 2 GM/50 ML BAG IVPB (13:10)
[2019-12-14] MEDS: Lidocaine 2% Jelly 6 ML SYR (13:30)
--- NOTE | 2019-12-14 15:02 | BLADDER_PTH ---
PATIENT: Rodo Elizabeth LOC: U#:[id number] AGE/SX: 53/M ROOM: 225 RE12/14/[address]: Amador Holly MD : [id number] BED: A DIS: 12/15/2019 SPEC #: [id number] RECD: 12/14/19 16:33 STATUS: DEBBIEFernando REQ #: [id number] FELICIA: 12/14/19 15:[address]: Amador Holly DEPT: Surgical Specimen RECD BY: Rosetta Quintana ENTERED: 12/14/19 16:34 SP TYPE: Bladder OTHR DR: Nathalie Franco Tissues: 1 - BLADDER BIOPSY Procedures: GROSS AND MICRO LEVEL 5 Comments: [id number]
[2019-12-14] MEDS: traMADol 50 MG TAB PO ×2 (16:55→22:50)
--- NOTE | 2019-12-14 17:35 | W.PM.OP ---
Date of service: 12/14/19 Time of Service: 17:35 Operative Note Operative Note DATE OF PROCEDURE: 12/14/19 PRE-OP DIAGNOSIS: Bladder stone POST-OP DIAGNOSIS: same PROCEDURE: Cystoscopy, holmium laser lithotripsy of bladder stone, transurethral resection biopsy of bladder neck SURGEON: Amador Holly ANESTHESIA: NOELLE ESTIMATED BLOOD LOSS: 200 PATHOLOGY: other (1. Bladder stones for chemical analysis 2. Bladder neck biopsy) COMPLICATIONS: None Patient was transported to: PACU Indications: This is a 53-year-old gentleman who has a history of an elevated PSA. He had developed clot retention in the past. The clot retention was a result of a markedly enlarged prostate. His prostate biopsy showed no malignancy so he underwent a transurethral resection of the prostate. He has had some hematuria over the past few months. On ultrasound, a large stone with identified within the bladder. He presents now for transurethral holmium laser lithotripsy of the stone Findings: Large bladder stone with inflammatory changes at the bladder neck Procedure Description: The patient was given preoperative IV antibiotics. After successful induction of general anesthesia he was placed in the dorsal lithotomy position. His genitalia is prepped and draped. 2% Xylocaine jelly was instilled into the urethra to act as a local anesthetic. A 22 [place] rigid cystoscope was then passed through the urethra into the bladder. The urethra and bladder were inspected with a 30 degree lens. The pendulous, bulbous and membranous urethra was appeared normal with no strictures. The prostatic urethra showed some inflammatory changes at the bladder neck as well as remnants of a large median lobe. The bladder neck was entered and at the base of the bladder, a large stone was identified. The stone was then treated with a 1000 ?m holmium laser fiber. We used a power setting of 800 and a rate of 8. As the stone fragmented, we irrigated out all the visible chips. All pieces were sent to pathology for chemical analysis. Because of the inflammatory nature at the bladder neck, we elected to biopsy the region to make sure there was no underlying bladder malignancy. We used a resectoscope loop and bipolar cautery to remove 2 or 3 small pieces of bladder neck. These samples were then sent to pathology for permanent section. We attempted to pass a 22 [place] hematuria catheter through the urethra into the bladder. This was not successful, so we placed a guidewire cystoscopically and passed a 20 [place] conf[place] coos tip catheter over the wire. We inflated the catheter balloon with 10 cc of sterile water and hooked the catheter to gravity drainage. The patient tolerated this procedure well with no complications. He was taken to the recovery room in stable condition.
--- NOTE | 2019-12-14 17:56 | NUR.NOTE ---
1625: Pt arrived on a stretcher from PACU with DIRECTOR MUSIC, Sylvia. Handoff report received from EM Ward initial assessment done see 1625 shift assessment for details.
[2019-12-14] MEDS: Lactated Ringers 1,000 ML 30 ML IV (20:31)
[2019-12-14] MEDS: Ketorolac 15 MG/ML VIAL IVP (20:33)
[2019-12-14] MEDS: Glucosamine 500 MG CAP PO (20:33)
[2019-12-15] MEDS: ceFAZolin 1 GM/50 ML BAG IVPB ×2 (00:26→07:58)
[2019-12-15 00:33] VITALS: BP 120/76; PULSE 80; RESP 18; TEMP 36.6; O2SAT 99
[2019-12-15] MEDS: Ketorolac 15 MG/ML VIAL IVP (02:31)
[2019-12-15] MEDS: Normal Saline Flush 10 ML SYR IV (02:31)
--- NOTE | 2019-12-15 07:13 | PGE_ITS ---
Date of Service Date of service: 12/15/19 Time of Service: 07:13 Assessment and Plan Assessment and plan (1) Bladder stone: Status: Acute Assessment and plan: We will transition to oral Toradol (instead of IV) and allow him to go home after he completes his antibiotics this morning. We will see him back in about 1 to 2 weeks to review his surgical pathology. Subjective Subjective Interval history since last seen: He had significant bladder spasms with his catheter in place, so we removed the catheter last evening. He has been able to void on his own. He has no episodes of retention. He does have dysuria which seems to be improving with time. His pain is fairly well controlled with ketorolac. Exam Narrative Exam Narrative: He is in no current distress. He is cooperative. His vital signs are documented elsewhere He is awake and alert Objective Objective Clinical Data: Vital Signs Temperature 36.6 C 12/15/19 00:33 Temperature Source Tympanic 12/15/19 00:33 Pulse 80 12/15/19 00:33 Pulse Rhythm Regular 12/15/19 00:30 Respiratory Rate 18 12/15/19 00:33 Respiratory Effort Non-Labored 12/15/19 00:30 Respiratory Depth Normal 12/15/19 00:30 Respiratory Pattern Normal 12/15/19 00:30 Blood Pressure 120/76 12/15/19 00:33 Pulse Oximetry 99 12/15/19 00:33 Respiratory End-tidal CO2 35 12/14/19 16:05 Oxygen Delivery Method Room Air 12/15/19 00:33 Oxygen Flow Rate 0 12/15/19 00:33 Pain Level 6 12/14/19 22:50 Intake & Output 12/14/19 12/14/19 12/15/19 11:59 23:59 11:59 Intake Total 1510.5 / 1510.5 50 / 50 Output Total 1050 / 1050 775 / 775 Balance 460.5 / 460.5 -725 / -725 Weight 103.1 kg Intake: IV 1510.5 / 1510.5 50 / 50 Output: Urine 1050 / 1050 775 / 775 Other: Urine Color [place] Dark Desiree [place] Urine Appearance Clear Clear Urine Odor Normal Comment Pt experiencing intermittent bladder spasms. Emesis Description None Voiding Methods Toilet Urinal Urinal
[2019-12-15 07:14] VITALS: BP 121/77; PULSE 66; RESP 12; O2SAT 95
--- NOTE | 2019-12-15 07:15 | W.PM.DS.N ---
Date of service: 12/15/19 Time of Service: 07:15 DS: Diagnosis Discharge Diagnosis (1) Bladder stone: Status: Acute Discharge Plan Disposition Patient Disposition: HOME Condition: Stable Discharge Details Reason For Visit: BLADDER STONE Admit Date/Time: 12/14/19 15:07 Admit Provider: Amador Holly Attending Provider: Amador Holly Primary Care Provider: Nathalie Franco Hospital Course Hospital Course: The patient was brought to the operating room on 12/14/2019. He underwent cystoscopy with holmium laser lithotripsy of his large bladder stone. We also found what I believed to be some inflammatory changes at the bladder neck. We did transurethral biopsies of this area. In the postoperative period, we left a Singh catheter. He was having severe bladder spasms, so I remove the catheter later on the evening of surgery. He was able to void on his own and his urine has been clearing. He did not have any fevers overnight. His pain is controlled with Toradol. He is being discharged to home on POD #1. Home Meds and New Rx's Prescriptions: New ketorolac 10 mg tablet 10 mg PO Q6H 5 Days Qty: 20 RF: 0 No Action bupropion HCl [Wellbutrin SR] 150 MG tablet extended release 12 hr 300 mg PO DAILY RF: 0 multivitamin Capsule 1 cap PO QAM RF: 0 glucosamine sulfate [Glucosamine] 500 mg Tablet 500 mg PO BID RF: 0 aspirin 81 mg Tablet,Chewable 81 mg PO DAILY RF: 0 Discharge Instructions Additional Instructions: Drink plenty of fluid. No need to strain urine. Follow-up with me in 1 to 2 weeks to review surgical pathology Prescription for Toradol sent to [facility] in [place]. Activity:: No lifting over 10 to 20 pounds for 1 week Equipment/Supplies:: No Equipment Needed Diet:: As Tolerated Discharge Orders Discharge Orders: Discharge Order (Routine); Ordered 12/15/19 Ordered By: Amador Holly DS: Summary Status at Discharge Functional status at discharge: independent ambulation Overall status at discharge: patient is back to baseline Mental Status: mental status grossly normal Speech and Movement: speech and movement normal Mood: congruent mood Affect: normal affect Exam Narrative Exam Narrative: At the time of discharge, he looks well. He does not appear septic or toxic His vital signs are documented elsewhere He has a normal respiratory effort His abdomen is soft with no guarding or rebound tenderness. The kidneys liver and spleen are not enlarged. His bladder is not distended. He is awake and alert. Psych Mental Status: mental status grossly normal Speech and Movement: speech and movement normal Mood: congruent mood Affect: normal affect DS: Data Vitals/I&O Vitals and I&O: Vital Signs Temperature 36.6 C 12/15/19 00:33 Temperature Source Tympanic 12/15/19 00:33 Pulse 66 12/15/19 07:14 Pulse Rhythm Regular 12/15/19 00:30 Respiratory Rate 12 12/15/19 07:14 Respiratory Effort Non-Labored 12/15/19 00:30 Respiratory Depth Normal 12/15/19 00:30 Respiratory Pattern Normal 12/15/19 00:30 Blood Pressure 121/77 12/15/19 07:14 Pulse Oximetry 95 12/15/19 07:14 Respiratory End-tidal CO2 35 12/14/19 16:05 Oxygen Delivery Method Room Air 12/15/19 07:14 Oxygen Flow Rate 0 12/15/19 07:14 Pain Level 6 12/14/19 22:50 Intake & Output 12/14/19 12/14/19 12/15/19 11:59 23:59 11:59 Intake Total 1510.5 / 1510.5 50 / 50 Output Total 1050 / 1050 775 / 775 Balance 460.5 / 460.5 -725 / -725 Weight 103.1 kg Intake: IV 1510.5 / 1510.5 50 / 50 Output: Urine 1050 / 1050 775 / 775 Other: Urine Color [place] Dark Desiree [place] Urine Appearance Clear Clear Urine Odor Normal Comment Pt experiencing intermittent bladder spasms. Emesis Description None Voiding Methods Toilet Urinal Urinal [facility] Medical History Christopher's palsy (Acute) BPH (benign prostatic hyperplasia) Depression Pneumothorax (Acute) Pneumothorax on left (Acute) spontaneous Pneumothorax on right (Acute) spontaneous Varicosities of leg Surgical History Colonoscopy - MAC (11/19/17) H/O prostate biopsy (Resolved) History of cystoscopy (Resolved) Repair of inguinal hernia S/P TURP (status post transurethral resection of prostate) (Acute) Social History Smoking/Tobacco Use Status: Never Alcohol Intake: current Alcohol Intake frequency: a few times a week Alcohol type: beer and wine Drug use: Never Substance use type: does not use Do you feel safe at home: Yes Do you feel safe in your relationship?: Yes
[2019-12-15] MEDS: Ketorolac 10 MG TAB PO (07:57)
[2019-12-15] MEDS: Glucosamine 500 MG CAP PO (07:57)
[2019-12-15] MEDS: Multivitamin TAB 1 TAB PO (07:58)
[2019-12-15 11:12] VITALS: BP 123/70; PULSE 74; RESP 18; TEMP 37.2; O2SAT 96
--- NOTE | 2019-12-15 12:40 | PDOC.CMIN ---
- If Service Date Differs Date of service: 12/15/19 Time of Service: 12:40 Care Management Initial Assess REASON FOR HOSPITALIZATION:: Bladder stone PAST MEDICAL HISTORY/PAST SURGICAL HISTORY:: Medical History . Pneumothorax (Acute). Pneumothorax on left (Acute). Pneumothorax on right (Acute). BPH (benign prostatic hyperplasia). Depression. Varicosities of leg. Surgical History. H/O prostate biopsy (Resolved). History of cystoscopy (Resolved). Colonoscopy - [facility] (11/19/17). Repair of inguinal hernia PREVIOUS FUNCTIONAL STATUS/SOCIAL/FAMILY SUPPORTS:: Rodo lives at [employer], where he works in their [employer] department. [facility] [employer] [employer] [facility] that offers retreats year round. Due to Covid 19, they have been closed, although Rodo's job allows him to remain busy. He is independent at baseline. CURRENT FUNCTIONAL STATUS:: Rodo was sitting up in bed when CM met with him. He stated that he was just waiting on his discharge instructions, but that he was ready to return home. He spoke of his work, and how he is worried about the facility making it through if they aren't able to open up soon. CM will continue to follow. ADVANCE DIRECTIVES:: None on file. Has patient been provided with info about the portal/API?: No Did the patient sign up for the portal?: No CODE STATUS:: Full Code INSURANCE COVERAGE / FINANCIAL ISSUES:: PARTH CURRENT HOME/COMMUNITY SERVICES/EQUIPMENT:: Rodo currently does not have any services or equipment. PRIMARY CARE PHYSICIAN:: Nathalie Franco POTENTIAL DISCHARGE NEEDS:: Follow up appointments PATIENT/FAMILY EDUCATION NEEDS:: Review discharge instructions regarding activity levels and medications, discussion of self care needs including ask me three. ANTICIPATED BARRIERS TO DISCHARGE:: None identified. TRANSPORTATION:: Via private vehicle by friends. PLAN:: Anticipate Rodo will be discharged today with no additional services, unless indicated. He will be driven home by friends via private vehicle. He will follow up with his PCP and discharge plan of care. He is happy to be returning home. CM will continue to follow.
--- NOTE | 2019-12-15 15:45 | PDOC.CMDIS ---
- If Service Date Differs Date of service: 12/15/19 Time of Service: 15:45 LACE Index Scoring Tool - Questions: Length of Stay (in days): 2 Acuity (Admit via E.D.?): No E.D. Visits: 6 - Answers: Total Score: 6 Risk of Readmission: Low Risk Care Management Discharge Reason for Hospitalization: Bladder stone Discharge Plan: Rodo will return home with no additional services. He will be driven home by friends via private vehicle. He will follow up with his PCP and discharge plan of care. He is happy to be returning home. Patient/Family Education Needs: Review discharge instructions regarding activity levels and medications, discussion of self care needs including ask me three.
[2019-12-17 13:48] LABS: Interpretation 100% Uric acid
== END 2019-12-15 12:14 | disposition home or self-care (01) | DRG 655 ==
LOC: MS 16:42
PROVIDERS: Admitting Provider Urology; PCP Nurse Practitioner Family; Visit Provider Urology
PROC: 0T7B8DZ Dilation of Bladder with Intraluminal Device, Via Natural or Artificial Opening Endoscopic (ICD-10-PCS; CPT 52317; principal; 2019-12-14 12:45)
DX: N21.0 Calculus in bladder (principal); N30.81 Other cystitis with hematuria; R97.20 Elevated prostate specific antigen [PSA]; N32.89 Other specified disorders of bladder
CPT/HCPCS: 52317; 52204; 88305; 99232; 99238; NC; 82365; 88307; J0690; J1100; J1885; J2370; J2405

== ENCOUNTER 2020-03-29 10:56 | Outpatient (REF) | payer MEDICAID, SELFPAY ==
[2020-03-29 21:44] LABS: ALT 45 U/L (16-63); AST 16 U/L (15-37); BUN 24 mg/dL (7-18); Calculated LDL 206 mg/dL (<100); Cholesterol 292 mg/dL (<200); HDL Cholesterol 42 mg/dL (40-60); Triglyceride 220 mg/dL (<150)
[2020-03-30 19:58] LABS: PSA, Screening 11.1 ng/mL (0.0-3.5)
== END 2020-03-29 11:16 ==
LOC: NCHCN 10:56
PROVIDERS: PCP Nurse Practitioner Family; Visit Provider Nurse Practitioner Family
DX: I10 Essential (primary) hypertension (principal); E78.5 Hyperlipidemia, unspecified; R97.20 Elevated prostate specific antigen [PSA]; Z12.5 Encounter for screening for malignant neoplasm of prostate; N21.0 Calculus in bladder
CPT/HCPCS: 80061; 84153; 84520; 84450; 84460

== ENCOUNTER 2020-12-08 17:25 | Emergency (ER) | payer MEDICAID, SELFPAY ==
--- NOTE | 2020-12-08 17:27 | ED.GENADUL_ITS ---
Discharge Plan Disposition Patient Disposition: HOME Condition: Improving Discharge Details Clinical Impression: Ureteral stone, Bladder mass Primary Care Provider: Nathalie Franco ED Provider: Elvira Stephenson Home Meds and New Rx's Prescriptions: New tamsulosin [Flomax] 0.4 mg capsule 0.4 mg PO DAILY Qty: 10 RF: 0 oxycodone 5 mg tablet 5 mg PO Q6H PRN (Reason: pain) Qty: 5 RF: 0 Continued bupropion HCl [Wellbutrin SR] 150 MG tablet extended release 12 hr 300 mg PO DAILY RF: 0 simvastatin 40 mg tablet 40 mg PO DAILY RF: 0 Discharge Instructions Instructions: Kidney Stones (ED) Additional Instructions: Drink plenty of fluids and get plenty of rest. Your prescription has been sent electronically to your pharmacy. Call the pharmacy to make sure your prescription is ready before pickup. Take the prescription as directed. Take the Flomax daily as directed. Take the oxycodone for pain not relieved with Tylenol or ibuprofen. Take Zofran as needed and directed for nausea and vomiting. Call Dr. Holly's office tomorrow morning to schedule a follow-up appointment for reevaluation and for cystoscopy. Return immediately to the emergency department if you develop any worsening or new concerning symptoms such as fever, persistent vomiting, inability to urinate or worsening pain. Referrals: Amador Hloly MD [ [facility] STAFF PHYSICIAN] - Discharge Data Discharge Date/Time-TO BE ENTERED AT DEPARTURE: 12/08/20 19:23 Discharge Physician: Elvira Stephenson Medical Decision Making 171 -- 54-year-old male with a history of kidney stones, BPH, TURP presents for left flank pain and nausea since this morning consistent with his previous kidney stones. Patient appears minimally uncomfortable but nontoxic. He is afebrile. No CVA tenderness. Normal exam. We will place an IV, bolus IV fluids, screening labs, urinalysis, CT renal colic and give a dose of Toradol and Zofran and reassess. 1830 -- Patient reassessed and he states his pain is improved. Labs reviewed. White blood cell count 11.73. Urinalysis notes large blood but no infection. CT notes: IMPRESSION: 1. Markedly enlarged prostate gland. A large mass mass fills the urinary bladder, which may arise from the prostate gland (prostate carcinoma) or may represent bladder carcinoma. This is new when compared to the prior study. 2. Moderate left-sided hydroureteronephrosis with 3 clustered 1-2 mm obstructing stones seen within the distal left ureter. Multiple additional nonobstructing left-sided renal stones are seen. Multiple bladder stones are also present. No right-sided hydronephrosis. 3. Increased number of rounded lymph nodes are seen within the perirectal fat and along the right internal iliac chain. While these may be reactive, metastatic disease could also have this appearance. 4. Stable low-density lesion within the left hepatic lobe, most consistent with a cyst. Results discussed with Dr. Holly. He has done his TURP and cystoscopy is in the past and noted that patient has a significantly large prostate gland and these findings may not be indicative of carcinoma. Recommend standard treatment for ureteral stone including Flomax, pain control. Recommend patient call the office tomorrow for plan for cystoscopy. Results and plan discussed with patient. Patient feels comfortable going home. He was given oxycodone for breakthrough pain and prescriptions sent electronically to his pharmacy. Usual and customary return precautions given prior to discharge. Medical Records Medical records reviewed: Yes I reviewed the patient's medical records. Imaging Data Radiologic Study: Radiologist's impression: CT Abdomen And Pelvis Without Contrast Exam date and time: 12/08/2020 5:52 PM Age: 54 years old Clinical indication: Other: Flank pain; Prior surgery TECHNIQUE: Imaging protocol: Computed tomography of the abdomen and pelvis without contrast. COMPARISON: CT renal colic wo 02/27/2018 11:34 AM FINDINGS: Lungs: The imaged lung bases are clear. Mediastinal space: Mild wall thickening within the lower esophagus. Liver: A 1.6 cm low-density lesion is seen within the lateral segment of the left hepatic lobe, unchanged when compared to prior studies, likely representing a cyst. The liver is upper limits of normal in size. Gallbladder and bile ducts: Normal. No calcified stones. No ductal dilation. Pancreas: The pancreas is normal appearance. Spleen: The spleen is normal appearance. Adrenal glands: The bilateral adrenal glands are normal appearance. Kidneys and ureters: A cluster of 1-2 mm obstructing stones are seen within the distal left ureter, 2 cm proximal to the UVJ. Moderate left-sided hydroureteronephrosis is seen to the level of the UVJ. Multiple areas of scarring are seen throughout the left kidney. Multiple nonobstructing left-sided renal calculi are seen measuring between 2 and 5 mm. The right kidney is normal appearance. No right-sided hydronephrosis. Mild periureteral stranding is seen surrounding the left mid and distal ureter. Stomach and bowel: Mild wall thickening within the gastric folds. Fecalization of the terminal ileum. The small bowel is otherwise normal appearance. Diverticula are seen within the distal descending and sigmoid colon without diverticulitis. No bowel obstruction. No pneumatosis. Appendix: No evidence of appendicitis. Intraperitoneal space: Unremarkable. No free air. No significant fluid collection. Vasculature: The abdominal aorta is normal in caliber without aneurysm. Lymph nodes: An increased number of small lymph nodes are seen throughout the perirectal fat and also are seen along the right internal iliac chain, measuring up to 7 mm in short axis within the right internal iliac chain and measuring up to 10 x 13 mm within the perirectal fat. Urinary bladder: Multiple calcifications are seen within the bladder, likely representing multiple bladder stones. Additionally, a large mass fills the urinary bladder, measuring 7.8 cm in depth, 7.3 cm in width, and 7.9 cm in craniocaudal length. Mild to moderate, somewhat nodular, wall thickening is seen throughout the urinary bladder. Reproductive: The prostate gland is markedly enlarged, and indents and may directly invade/extend into the urinary bladder. Additionally, mild stranding is seen within the fat posterior to the posterior capsule of the prostate gland. Loss of fat plane is seen between the posterior wall of the prostate gland and anterior wall of the rectum, which could represent direct tumoral extension in the correct clinical context. Bones/joints: Transitional lumbosacral anatomy is seen, with a bony bridge along the right side at L5-S1. A stable benign hemangioma is seen within the right posterior T11 vertebral body measuring 2.0 x 1.4 cm. No suspicious sclerotic or lytic osseous lesions to suggest metastatic disease. Soft tissues: Unremarkable. IMPRESSION: 1. Markedly enlarged prostate gland. A large mass mass fills the urinary bladder, which may arise from the prostate gland (prostate carcinoma) or may represent bladder carcinoma. This is new when compared to the prior study. 2. Moderate left-sided hydroureteronephrosis with 3 clustered 1-2 mm obstructing stones seen within the distal left ureter. Multiple additional nonobstructing left-sided renal stones are seen. Multiple bladder stones are also present. No right-sided hydronephrosis. 3. Increased number of rounded lymph nodes are seen within the perirectal fat and along the right internal iliac chain. While these may be reactive, metastatic disease could also have this appearance. 4. Stable low-density lesion within the left hepatic lobe, most consistent with a cyst. Lab Data Lab results reviewed: Yes I reviewed the patient's lab results. Labs: Laboratory Tests Range/Units 12/08/20 12/08/20 12/08/20 17:32 17:45 17:45 WBC (4.4-10.8) 10^3/uL 11.73 H RBC (4.36-5.78) 10^6/uL 5.05 Hgb (13.5-17.5) g/dL 15.6 Hct (40.0-50.0) % 45.5 MCV (80-95) fL 90.1 MCH (27.0-33.0) pg 30.9 MCHC (32.0-36.0) % 34.3 RDW (11.8-14.1) % 12.6 Plt Count (130-400) 10^3/uL 285 MPV (8.0-11.0) fL 9.4 Immature Gran % 0.5 Neutrophils % 79.7 Lymphocytes % 14.7 Monocytes % 4.3 Eosinophils % 0.3 Basophils % 0.5 Nucleated RBC % % 0 Absolute Neutrophils (1.2-6.7) 10^3/uL 9.35 H Absolute Lymphocytes (1.2-3.4) 10^3/uL 1.72 Absolute Monocytes (0.1-0.8) 10^3/uL 0.50 Absolute Eosinophils (0.0-0.7) 10^3/uL 0.04 Absolute Basophils (0.0-0.2) 10^3/uL 0.06 Sodium (136-145) mmol/L 141 Potassium (3.5-5.1) mmol/L 4.1 Chloride (98-107) mmol/L 105 Carbon Dioxide (21.0-32.0) mmol/L 27.8 Anion Gap (3-11) mmol/L 8.2 BUN (7-18) mg/dL 24 H Creatinine (0.70-1.30) mg/dL 1.0 Estimated GFR/1.73 m2 (mL/min/1.73m2) >= 60.00 Glucose (74-106) mg/dL 117 H Calcium (8.5-10.1) mg/dL 9.6 Total Bilirubin (0.2-1.0) mg/dL 0.5 AST (15-37) U/L 18 ALT (16-63) U/L 37 Alkaline Phosphatase (46-116) U/L 97 Total Protein (6.4-8.2) g/dL 7.5 Albumin (3.4-5.0) g/dL 4.1 Urine Color (Yellow) Yellow Urine Clarity (Clear) Clear Urine pH (5-8) 7.0 Ur Specific Mckinney (1.005-1.025) 1.025 Urine Protein (Negative) mg/dL 100 H Urine Ketones (Negative) mg/dL 15 H Urine Blood (Negative) Large H Urine Nitrite (Negative) Negative Urine Bilirubin (Negative) Negative Urine Urobilinogen (Up TO 0.2) EU/dL 0.2 Ur Leukocyte Esterase (Negative) Negative Urine RBC (0-2) HPF >50 H Urine WBC (0-5) HPF Negative Ur Epithelial Cells (Negative) HPF Rare Urine Crystals (Negative) HPF Negative Urine Bacteria (Negative) HPF Negative Urine Casts (Negative) LPF Negative Urine Mucus (Negative) Negative Urine Other (Negative) Negative Ur Culture Indicated? No Urine Glucose (Negative) mg/dL Negative HPI General Mode of arrival: ambulatory . Date/Time Provider Initiated Documentation: 12/08/20 17:26 . Limitations to Documentation: no limitations . Information obtained by: patient . HPI Narrative: Patient is a 54-year-old male with a history of kidney stones, BPH, TURP presents for left-sided flank pain and nausea since this morning. He also felt that he was constipated so he took an [id number] medication for constipation. He states his last bowel movement was this morning and within normal limits. He states he did have a bowel movement yesterday. He states his symptoms feel similar to his previous history of kidney stones in the past. He does admit to some lower abdominal pain but he denies any fever, vomiting, or urinary symptoms. Related Data Home Medications Medication Instructions Recorded Confirmed bupropion HCl [Wellbutrin SR] 300 mg PO DAILY 06/24/17 12/08/20 oxycodone 5 mg PO Q6H PRN #5 tab 12/08/20 simvastatin 40 mg PO DAILY 12/08/20 12/08/20 tamsulosin [Flomax] 0.4 mg PO DAILY #10 cap 12/08/20 Previous Rx's Medication Instructions Recorded oxycodone 5 mg PO Q6H PRN #5 tab 12/08/20 tamsulosin [Flomax] 0.4 mg PO DAILY #10 cap 12/08/20 Allergies Allergy/AdvReac Type Severity Reaction Status Date / Time No Known Allergies Allergy Unverified 12/08/20 17:36 General LEOBARDO: 3 Review of Systems All systems reviewed & are unremarkable except as noted in HPI and below Constitutional Constitutional: Reports as per HPI, Denies chills and Denies fever(s) Eyes Eyes: Denies blurry vision ENT Ears, Nose, Mouth, and Throat: Denies dizziness, Denies sore throat and Denies throat swelling Cardiovascular Cardiovascular: Denies chest pain and Denies dyspnea Respiratory Respiratory: Denies cough and Denies dyspnea Gastrointestinal Gastrointestinal: Denies abdominal pain, Denies diarrhea and Denies vomiting Genitourinary Genitourinary: Denies hematuria and Denies dysuria Musculoskeletal Musculoskeletal: Reports back pain and Denies numbness Integumentary/Breasts Skin/Breast: Denies lesions and Denies rash Neurologic Neurologic: Denies dizziness, Denies localized weakness and Denies numbness Allergic/Immunologic Allergic/Immunologic: Denies throat swelling [facility] Medical History (Updated 12/08/20 @ 19:03 by Elvira Stephenson DO) Christopher's palsy BPH (benign prostatic hyperplasia) Depression Pneumothorax Pneumothorax on left spontaneous Pneumothorax on right spontaneous Varicosities of leg Surgical History Colonoscopy - MAC (11/19/17) H/O prostate biopsy History of cystoscopy Repair of inguinal hernia S/P TURP (status post transurethral resection of prostate) Social History Smoking/Tobacco Use Status: Never Smoking risk assessment performed?: Yes Alcohol Intake: current Alcohol Intake frequency: a few times a week Alcohol type: beer and wine Drug use: Never Substance use type: does not use Do you feel safe at home: Yes Do you feel safe in your relationship?: Yes Exam Const General: cooperative and no acute distress HENMT Head: normal to inspection Face and sinus: normal facial exam Eyes General: appearance normal, both eyes and all related structures EOM: EOM intact bilaterally Neck Neck: normal visual inspection and No submandibular swelling Lymphatic: no lymphadenopathy noted Chest Chest: normal inspection of the chest and no tenderness Resp Effort & Inspection: normal respiratory effort and able to speak in complete sentences Auscultation: clear to auscultation bilaterally Cardio Rate: regular rate Rhythm: regular rhythm GI Inspection: normal to inspection Palpation: soft, not firm, not rigid and nontender Auscultation: normal bowel sounds Male General Exam: Yes normal external exam Penis: normal penis Scrotum: scrotum normal Back/Spine/Pelvis Back: no CVA tenderness Skin General skin exam: no rashes or lesions noted Neuro General: patient alert, patient awake and patient oriented x3 Cognition: normal cognition Speech: speech normal Motor: muscle tone normal throughout Sensory Exam: no sensory deficits noted Extrem General: normal to inspection, full ROM, capillary refill normal, no calf tenderness bilaterally and no edema Psych Appearance: grossly normal Mental Status: mental status grossly normal Speech and Movement: speech and movement normal Affect: normal affect
[2020-12-08 17:32] VITALS: BP 157/86; RESP 85; TEMP 37; O2SAT 96
--- NOTE | 2020-12-08 17:45 | DI.CT_ITS ---
Exam(s) CT RENAL COLIC WO EXAM: CT RENAL COLIC WO CLINICAL HISTORY: L flank pain, r/o kidney stone. TECHNIQUE: Imaging Protocol: Axial computed tomography images with coronal and sagittal reformatted images were created and reviewed. COMPARISON: CT RENAL COLIC WO CONTRAST from 01/05/2018 CT RENAL COLIC WO CONTRAST from 01/05/[address] renal colic wo from 02/27/2018 FINDINGS: ABDOMEN: Lung Bases: Normal where visualized. Liver: Normal density. There is a stable 1.5 cm hypodensity in the left lobe of the liver. This can be seen dating back to 2018 and is unchanged. Gallbladder and biliary tract: No radiodense calculus or biliary ductal dilation. Pancreas: Normal density, no abnormal calcifications or inflammatory process. Spleen: Normal. Kidneys: Normal size, contour and axis.There are 2 or 3 1-2 mm stones in the distal left ureter. Mil [id number] hydronephrosis is noted. Nonobstructing stones are seen in the left kidney. Renal cor tical scarring is seen in the anterolateral aspect of the left kidney. No masses seen. Adrenal glands: No mass is seen. Lymph nodes: There are mildly prominent pelvic lymph nodes present. Abdominal Aorta: Abdominal portion non-dilated. Mild atherosclerosis. PELVIS: Bladder:The prostate gland is again shown to be markedly enlarged impinging on the base of the urinar y bladder. There is now a soft tissue density mass in the anterior aspect of the urinary bladder on the left. This may be an extension of the enlarged prostate gland, however a prostate or bladder armin plasm should be considered. There multiple bladder stones. Bowel: No obstruction or bowel wall thickening. No evidence of appendicitis. There is a small hiatal hernia. There are few scattered diverticuli in the colon but no evidence of acute diverticulitis. Peritoneal cavity: No ascites, collection or mesenteric inflammatory response. No free air. Reproductive organs: Please see above section on the bladder. Bones: No suspicious lytic or sclerotic lesions are seen. Age-appropriate degenerative changes are s een in the spine. Soft Tissues: There is a small fat containing umbilical hernia. IMPRESSION: 1. Two or 3 small stones in the distal left ureter with mild to moderate hydronephrosis. Left nephro lithiasis. Multiple bladder stones. 2. Marked enlargement of the prostate gland. 3. Findings suspicious for a bladder/prostate mass which has developed since the prior examination fr om 2018. The mass measures almost 8 cm. RADIATION DOSE DELIVERED: 1,203mGy.cm Total DLP DATA REPOSITORY: All CT scans at this facility are submitted to the National Radiology Data Registry (NRDR) Dose Index Registry (DIR) with the [employer] (A[employer]). RADIATION OPTIMIZATION: All CT scans at this facility use at least one of these dose optimization te chniques: automated exposure control; mA and/or kV adjustment per patient size (includes targeted exa ms where dose is matched to clinical indication); or iterative reconstruction.
[2020-12-08 17:46] LABS: Bilirubin Negative (Negative); Blood Large (Negative); Clarity Clear (Clear); Glucose Negative (Negative); Ketones 15 mg/dL (Negative); Leukocyte Esterase Negative (Negative); Nitrite Negative (Negative); Specific Gravity 1.025 (1.005-1.025); Urobilinogen 0.2 EU/dL (Up TO 0.2)
[2020-12-08 17:50] LABS: Abs Immature Grans 0.06 10^3/uL (0.0-0.06); Absolute Basophil Count 0.06 10^3/uL (0.0-0.2); Absolute Lymphocyte Count 1.72 10^3/uL (1.2-3.4); Basophils % 0.5; Eosinophils % 0.3; HCT 45.5 % (40.0-50.0); HGB 15.6 g/dL (13.5-17.5); Immature Grans % 0.5; Lymphocytes % 14.7; MCH 30.9 pg (27.0-33.0); MCHC 34.3 % (32.0-36.0); MCV 90.1 fL (80-95); MPV 9.4 fL (8.0-11.0); Monocytes % 4.3; Neutrophils % 79.7; Nucleated RBC 0 %; Platelet Count 285 10^3/uL (130-400); RBC 5.05 10^6/uL (4.36-5.78); RDW 12.6 % (11.8-14.1); RDW-SD 41.5 fL; WBC 11.73 10^3/uL (4.4-10.8)
[2020-12-08 17:51] LABS: Absolute Eosinophil Count 0.04 10^3/uL (0.0-0.7); Absolute Neutrophil Count 9.35 10^3/uL (1.2-6.7)
[2020-12-08] MEDS: Normal Saline 1,000 ML 1000 ML IV (17:54)
[2020-12-08] MEDS: Ondansetron 4 MG/2 ML VIAL IVP (17:54)
[2020-12-08 18:04] LABS: ALT 37 U/L (16-63); AST 18 U/L (15-37); Albumin 4.1 g/dL (3.4-5.0); Alkaline Phosphatase 97 U/L (46-116); Anion Gap 8.2 mmol/L (3-11); BUN 24 mg/dL (7-18); Bilirubin, Total 0.5 mg/dL (0.2-1.0); CO2 27.8 mmol/L (21.0-32.0); Calcium 9.6 mg/dL (8.5-10.1); Chloride 105 mmol/L (98-107); Glucose 117 mg/dL (74-106); Potassium 4.1 mmol/L (3.5-5.1); Sodium 141 mmol/L (136-145); Total Protein 7.5 g/dL (6.4-8.2)
[2020-12-08] MEDS: Ketorolac 30 MG/ML VIAL IVP (18:23)
[2020-12-08 18:37] LABS: Bacteria Negative HPF (Negative); Casts Negative LPF (Negative); Crystals Negative HPF (Negative); Epithelial Cells Rare HPF (Negative); Mucus Negative (Negative); Other Cells Negative (Negative); RBC >50 HPF (0-2); WBC Negative HPF (0-5)
[2020-12-08 18:38] LABS: C & S Indicated? No
--- NOTE | 2020-12-08 18:44 | DI.VRAD_ITS ---
Addendum created by Bhavna Watkins MD on 12/08/2020 6:46:17 PM EDT: THIS REPORT CONTAINS FINDINGS THAT MAY BE CRITICAL TO PATIENT CARE. The findings were verbally communicated via telephone conference with mouna vogt at 6:46 PM EDT on 12/08/2020. The findings were acknowledged and understood. Initial report created on 12/08/2020 6:44:46 PM EDT: PROCEDURE INFORMATION: Exam: CT Abdomen And Pelvis Without Contrast Exam date and time: 12/08/2020 5:52 PM Age: 54 years old Clinical indication: Other: Flank pain; Prior surgery TECHNIQUE: Imaging protocol: Computed tomography of the abdomen and pelvis without contrast. COMPARISON: CT renal colic wo 02/27/2018 11:34 AM FINDINGS: Lungs: The imaged lung bases are clear. Mediastinal space: Mild wall thickening within the lower esophagus. Liver: A 1.6 cm low-density lesion is seen within the lateral segment of the left hepatic lobe, unchanged when compared to prior studies, likely representing a cyst. The liver is upper limits of normal in size. Gallbladder and bile ducts: Normal. No calcified stones. No ductal dilation. Pancreas: The pancreas is normal appearance. Spleen: The spleen is normal appearance. Adrenal glands: The bilateral adrenal glands are normal appearance. Kidneys and ureters: A cluster of 1-2 mm obstructing stones are seen within the distal left ureter, 2 cm proximal to the UVJ. Moderate left-sided hydroureteronephrosis is seen to the level of the UVJ. Multiple areas of scarring are seen throughout the left kidney. Multiple nonobstructing left-sided renal calculi are seen measuring between 2 and 5 mm. The right kidney is normal appearance. No right-sided hydronephrosis. Mild periureteral stranding is seen surrounding the left mid and distal ureter. Stomach and bowel: Mild wall thickening within the gastric folds. Fecalization of the terminal ileum. The small bowel is otherwise normal appearance. Diverticula are seen within the distal descending and sigmoid colon without diverticulitis. No bowel obstruction. No pneumatosis. Appendix: No evidence of appendicitis. Intraperitoneal space: Unremarkable. No free air. No significant fluid collection. Vasculature: The abdominal aorta is normal in caliber without aneurysm. Lymph nodes: An increased number of small lymph nodes are seen throughout the perirectal fat and also are seen along the right internal iliac chain, measuring up to 7 mm in short axis within the right internal iliac chain and measuring up to 10 x 13 mm within the perirectal fat. Urinary bladder: Multiple calcifications are seen within the bladder, likely representing multiple bladder stones. Additionally, a large mass fills the urinary bladder, measuring 7.8 cm in depth, 7.3 cm in width, and 7.9 cm in craniocaudal length. Mild to moderate, somewhat nodular, wall thickening is seen throughout the urinary bladder. Reproductive: The prostate gland is markedly enlarged, and indents and may directly invade/extend into the urinary bladder. Additionally, mild stranding is seen within the fat posterior to the posterior capsule of the prostate gland. Loss of fat plane is seen between the posterior wall of the prostate gland and anterior wall of the rectum, which could represent direct tumoral extension in the correct clinical context. Bones/joints: Transitional lumbosacral anatomy is seen, with a bony bridge along the right side at L5-S1. A stable benign hemangioma is seen within the right posterior T11 vertebral body measuring 2.0 x 1.4 cm. No suspicious sclerotic or lytic osseous lesions to suggest metastatic disease. Soft tissues: Unremarkable. IMPRESSION: 1. Markedly enlarged prostate gland. A large mass mass fills the urinary bladder, which may arise from the prostate gland (prostate carcinoma) or may represent bladder carcinoma. This is new when compared to the prior study. 2. Moderate left-sided hydroureteronephrosis with 3 clustered 1-2 mm obstructing stones seen within the distal left ureter. Multiple additional nonobstructing left-sided renal stones are seen. Multiple bladder stones are also present. No right-sided hydronephrosis. 3. Increased number of rounded lymph nodes are seen within the perirectal fat and along the right internal iliac chain. While these may be reactive, metastatic disease could also have this appearance. 4. Stable low-density lesion within the left hepatic lobe, most consistent with a cyst. Dictated and Authenticated by: Bhavna Watkins MD. Ordering:DANITA Felix MD
[2020-12-08 19:13] VITALS: BP 149/74; PULSE 87; RESP 18; TEMP 36.9; O2SAT 98
[2020-12-08] MEDS: Tamsulosin 0.4 MG CAPCR PO (19:14)
[2020-12-08] MEDS: Ondansetron O.D.T. 4 MG TABEF, 3 TABS/BTL PO (19:14)
[2020-12-08] MEDS: oxyCODONE 5 MG TAB PO (19:14)
== END 2020-12-08 19:23 | disposition home or self-care (01) ==
PROVIDERS: Emergency Provider Physician Assistant; PCP Nurse Practitioner Family
DX: N20.1 Calculus of ureter (principal); N32.89 Other specified disorders of bladder; Z87.442 Personal history of urinary calculi
CPT/HCPCS: 80053; 96361; 96374; 96375; 99284; 74176; 81003; 81015; 85025; 99283; J1885; J2405

== ENCOUNTER 2021-01-24 20:21 | Outpatient (REF) | payer MEDICAID, SELFPAY ==
[2021-01-26 11:04] LABS: COVID-19 RT-PCR UVMMC Result Negative (Negative)
== END 2021-01-24 20:22 | disposition home or self-care (01) ==
LOC: NCHCN 20:21
PROVIDERS: PCP Nurse Practitioner Family; Visit Provider Nurse Practitioner Family
DX: Z20.822 Contact with and (suspected) exposure to COVID-19 (principal)
CPT/HCPCS: U0003

== ENCOUNTER 2021-01-31 11:17 | Outpatient (REF) | payer MEDICAID, SELFPAY ==
[2021-02-01 10:07] LABS: Lyme Ab w Rflx to Lyme Confirm Negative (Negative)
[2021-02-02 17:47] LABS: B. miyamotoi PCR Negative (Negative); Babesia divergens/MO-1 Negative (Negative); Babesia duncani Negative (Negative); Babesia microti Negative (Negative); Ehrlichia chaffeensis Negative (Negative); Ehrlichia ewingii/canis Negative (Negative); Ehrlichia muris eauclairensis Negative (Negative)
[2021-02-02 20:36] LABS: Anaplasma phagocytophilum Positive (Negative)
== END 2021-01-31 11:18 | disposition home or self-care (01) ==
LOC: NCHCN 11:17
PROVIDERS: PCP Nurse Practitioner Family; Visit Provider Nurse Practitioner Family
DX: R53.83 Other fatigue (principal); W57.XXXA Bitten or stung by nonvenomous insect and other nonvenomous arthropods, initial encounter; T14.8XXA Other injury of unspecified body region, initial encounter
CPT/HCPCS: 87798; 86618

== ENCOUNTER 2021-03-19 11:39 | Emergency (ER) | payer MEDICAID, SELFPAY ==
[2021-03-19 11:37] VITALS: BP 163/101; PULSE 77; RESP 18; TEMP 36.5; O2SAT 96
--- NOTE | 2021-03-19 11:45 | DI.RAD_ITS ---
Exam(s) XR KNEE LT 4V AP,LAT,ALLI,PAT EXAM: XR KNEE LT 4V AP,LAT,ALLI,PAT CLINICAL HISTORY: fall yesterday, lateral pain. TECHNIQUE: 2D digital imaging was performed. COMPARISON: No exams were available for comparison FINDINGS: Four views reveal a fracture of the lateral femoral condyle, this best evident on the lateral and ponce chant's views. No joint space narrowing. No obvious tibial plateau fracture nor fracture of the fib ular head and neck. Hemarthrosis-joint effusion is noted. IMPRESSION: DATA REPOSITORY: RADIATION DOSE DELIVERED:
--- NOTE | 2021-03-19 11:45 | ED.GENADUL_ITS ---
Discharge Plan Disposition Patient Disposition: HOME Condition: Stable Discharge Details Clinical Impression: Femoral distal fracture Primary Care Provider: Nathalie Franco ED Provider: Fang Pope Home Meds and New Rx's Prescriptions: New diazepam [Valium] 5 mg tablet 5 mg PO TID PRN (Reason: muscle spasm) Qty: 10 RF: 0 Continued tamsulosin [Flomax] 0.4 mg capsule 0.4 mg PO DAILY Qty: 90 RF: 1 bupropion HCl [Wellbutrin SR] 150 MG tablet extended release 12 hr 300 mg PO DAILY RF: 0 simvastatin 40 mg tablet 40 mg PO DAILY RF: 0 oxycodone 5 mg tablet 5 mg PO Q6H PRN (Reason: pain) Qty: 5 RF: 0 Discharge Instructions Instructions: Leg Fracture (ED) Additional Instructions: You have a fracture of your lateral lower femur. Please keep immobilizer in place until evaluated by orthopedics. Please remain non-weight bearing with crutches. Encourage rest, ice, elevation. Tylenol and/or Ibuprofen as needed for discomfort. You have been prescribed muscle relaxer in the event that you have recurrent muscle spasms. If you develop new/worsening symptoms please seek care urgently once again. Otherwise, please call orthopedics tomorrow morning to schedule follow up appointment this week for reevaluation. Referrals: Nathalie Franco [Primary Care Provider] - Discharge Data Discharge Date/Time-TO BE ENTERED AT DEPARTURE: 03/19/21 16:45 Medical Decision Making Patient is a pleasant 55-year-old male presenting today with chief complaint of left knee pain. Patient is brought in via EMS. He reports that yesterday, while cleaning cabinets, he suffered a rotational injury to the left knee. Unclear if he fell on the knee or not. This morning he had increase in his discomfort as well as swelling. Patient ambulated to the bathroom and then was unable to get off of the toilet without assistance prompting call to EMS. He denies any fevers or chills. States that he did injure the knee approximately 4 weeks ago while getting into his car and has had some continuous discomfort since then. Was referred to physical therapy and has an appointment with them on the of this month. Patient was given 200 mcg of fentanyl prior to arrival. Patient endorses high level of anxiety. On exam, patient appears very anxious and uncomfortable. He does have a moderate effusion to the left knee. Pulses. Sensation is intact. Secondary to discomfort as well as anxiety, unable to manipulate or move the knee at this point. Will obtain an x-ray to treat anxiety. Patient reportedly had a number of spasms, has not had much fluid today, will give hydration to help with spasms. Will also give ativan for anxiety and IV acetaminophen. Patient improved but only slightly. Continues to appear very anxious and having frequent spasms. After Valium, patient feeling much improved, calm and comfortable. Able to go for imaging. XR reviewed by myself. Concerned for possible distal femur fx. Will obtain CT for further evaluation of fx. CT reviewed by radiologist: FINDINGS: Bones/joints: Redemonstrated is an acute, mildly displaced and comminuted fracture of the lateral femoral condyle, with extension to its anterolateral and distal articular surfaces. Displacement along the patellofemoral compartment measures up to 3 mm, as it does along the lateral compartment (the latter of which is assessed on independently generated reconstructions). It also extends posteriorly with a 2.9 cm wide fragment extending to the intertrochanteric notch. No additional fracture is identified. The joint spaces are normally aligned. A small superior patellar enthesophyte is again present. There is again a large associated lipohemarthrosis. Soft tissues: The soft tissues are mildly swollen anteriorly and laterally. Vasculature: Subcutaneous varicosities are noted posteriorly. IMPRESSION: Acute comminuted intra-articular fracture of the lateral femoral condyle with large associated lipohemarthrosis. Consulted with orthopedics at [facility]. Discussed case with Dr. Danielle who advised contacting other facility secondary to bed availability. Requested consultation with orthopedics at [facility]. Consulted with orthopedics at [facility]. Physicians was able to review XR. Dr. Turner. NWB. Knee immoblizer. He advised that patient would be able to f/u in their clinic in the next few days. Likely surgical intervention. They incouraged MICHELLE. Discussed recommendations. Will place in immobilizer. Encouraged RICE. He has crutches at home. He did very well with valium. I think muscle spasms caused largest amount of pain Wiil prescribe further PO valium Advised tylenol and/or motrin as needed. Patient to be NWB. Return precautions discussed. As I will be placing him on Valium, I do not feel that narcotics with this are safe or a good choice. He will not drive while taking this. He will call orthopedics tomorrow to schedule this appointment. All ofhis questions and concerns were addressed, he is in agreement with this plan. HPI General Mode of arrival: EMS . Date/Time Provider Initiated Documentation: 03/19/21 11:42 . Limitations to Documentation: no limitations . Information obtained by: patient, EMS and RN notes reviewed . History of Present Illness 55 year old M presents to the emergency department with the chief complaint of left knee pain, described as severe, with intensity rated at 2. Quality is described as stabbing, and is localized to the left and lower extremity. Patient reports no radiation. Patient started experiencing this day(s) (1) and it has been constant. Immobilization improves symptom(s), Movement worsens symptoms (muscle spasms) . Patient notes no other symptoms.; denies fever/chills, rash and shortness of breath. Patient did receive the following treatments prior to arrival, other (200mcg Fentanyl by EMS prior to arrival) Related Data Home Medications Medication Instructions Recorded Confirmed bupropion HCl [Wellbutrin SR] 300 mg PO DAILY 06/24/17 03/19/21 oxycodone 5 mg PO Q6H PRN #5 tab 12/08/20 simvastatin 40 mg PO DAILY 12/08/20 03/19/21 tamsulosin 0.4 mg capsule 0.4 mg PO DAILY #90 cap 02/09/21 diazepam [Valium] 5 mg PO TID PRN #10 tab 03/19/21 Previous Rx's Medication Instructions Recorded oxycodone 5 mg PO Q6H PRN #5 tab 12/08/20 tamsulosin 0.4 mg capsule 0.4 mg PO DAILY #90 cap 02/09/21 diazepam [Valium] 5 mg PO TID PRN #10 tab 03/19/21 Allergies Allergy/AdvReac Type Severity Reaction Status Date / Time No Known Allergies Allergy Unverified 03/19/21 11:43 General Stated Complaint: Orthopedic LEOBARDO: 3 Review of Systems Constitutional Constitutional: Reports as per HPI, Denies chills, Denies fever(s), Denies headache(s) and Denies weakness ENT Ears, Nose, Mouth, and Throat: Denies headache(s) Cardiovascular Cardiovascular: Reports as per HPI Respiratory Respiratory: Reports as per HPI and Denies cough Musculoskeletal Musculoskeletal: Reports as per HPI and Denies tingling Integumentary/Breasts Skin/Breast: Reports as per HPI, Denies rash and Denies wounds Neurologic Neurologic: Reports as per HPI, Denies headache(s), Denies tingling, Denies par esthesias and Denies weakness [facility] Medical History (Updated 03/19/21 @ 15:50 by ELISE Banegas) Basal ganglia infarction Christopher's palsy BPH (benign prostatic hyperplasia) Depression Hematuria History of nephrolithiasis History of torn meniscus of right knee Hyperlipidemia Hypertension Onychodystrophy Onychomycosis of toenail Pneumothorax Pneumothorax on left spontaneous Pneumothorax on right spontaneous Skin tag Superficial thrombophlebitis Varicosities of leg Weight gain Surgical History Colonoscopy - MAC (11/19/17) H/O prostate biopsy History of cystoscopy Repair of inguinal hernia S/P TURP (status post transurethral resection of prostate) Social History Smoking/Tobacco Use Status: Never Smoking risk assessment performed?: Yes Alcohol Intake: current Alcohol Intake frequency: a few times a week Alcohol type: beer and wine Drug use: Never Substance use type: does not use Do you feel safe at home: Yes Do you feel safe in your relationship?: Yes Exam Const General: cooperative, uncomfortable, no acute distress, well developed, well groomed, in distress mild and anxious Nutritional Appearance: well nourished and overweight Orientation: alert and awake Resp Effort & Inspection: normal respiratory effort, able to speak in complete sentences and no respiratory distress Cardio Rate: regular rate Rhythm: regular rhythm Skin General skin exam: no rashes or lesions noted Lesions: no lesions Rashes: no rashes Trauma: no lacerations or abrasions Neuro General: patient alert and patient awake Cognition: normal cognition Speech: speech normal Gait: gait abnormal Motor: muscle tone normal throughout Sensory Exam: no sensory deficits noted Extrem Knee images: 1. Patient has a moderate effusion. No erythema or warmth. Knee is partially flexed. Pain is maximal over lateral knee, primarily at the joint line and above this. 2+ distal pulses. Sensation intact. Full ROM of ankle. Calf soft and non tender. Unable to perform ligamentous exam secondary to pain Psych Appearance: grossly normal and well kempt Mental Status: mental status grossly normal Speech and Movement: speech and movement normal Course Vital Signs Vital signs: Vital Signs Temperature 36.5 C 03/19/21 11:37 Pulse 77 03/19/21 11:37 Respiratory Rate 18 03/19/21 11:37 Blood Pressure 163/101 H 03/19/21 11:37 Pulse Oximetry 96 03/19/21 11:37 Temperature 36.5 C 03/19/21 11:37 Temperature Source Skin 03/19/21 11:37 Pulse 77 03/19/21 11:37 Respiratory Rate 18 03/19/21 11:37 Blood Pressure 163/101 H 03/19/21 11:37 Pulse Oximetry 96 03/19/21 11:37 Oxygen Delivery Method Room Air 03/19/21 11:37 Oxygen Flow Rate 0 03/19/21 11:37 Pain Level 2 03/19/21 11:37 Comment 03/19/21 11:37
[2021-03-19] MEDS: Normal Saline 1,000 ML 1000 ML IV (11:48)
[2021-03-19] MEDS: LORazepam 2 MG/ML VIAL 1 MG IVP (11:50)
[2021-03-19] MEDS: ACETAMINOPHEN 1,000 MG/100 ML BTL 400 MG IVPB (11:54)
[2021-03-19] MEDS: diazePAM 5 MG TAB PO (12:22)
--- NOTE | 2021-03-19 14:22 | DI.CT_ITS ---
Exam(s) CT LOWER EXTREMITY LT WO EXAM: CT LOWER EXTREMITY LT WO CLINICAL HISTORY: knee pain, further evaluation of possible fracture. TECHNIQUE: Imaging Protocol: Axial computed tomography images with coronal and sagittal reformatted images were created and reviewed. CONTRAST MATERIAL: Intravenous: None COMPARISON: Plain films earlier today reviewed FINDINGS: There is a fracture of the lateral femoral condyle extending from the lateral aspect of the metaphysi s through the condyle to the articular surface with minimal step. The outer cortex of the lateral fe moral condyle as avulsed. The most medial aspect of the fracture lines extend to the inter condylar fossa. There is no fracture of the medial femoral condyle. There is no tibial plateau fracture. No fracture of the fibular head and neck. No evidence of patellar fracture nor patellar displacement. There is a joint effusion-hemarthrosis. Although difficult to assess on CT scan, there appears to be probable tear of the anterior cruciate l igament. Posterior cruciate ligament appears intact. Given the site of the lateral femoral condyle fractures. Suspect element of injury to the lateral co llateral ligament complex component(s). IMPRESSION: Comminuted fracture of the lateral femoral condyle, also involving the lower ipsilateral metaphysis o f the distal femur. The fracture extends to the intercondylar fossa but not to the level the medial femoral condyle. No fracture of the tibial plateau nor of the fibular head and neck. Joint effusion-hemarthrosis. Also suspect other internal derangements which can be further studied ( when clinically feasible) with MRI. Suspect ACL and fibular collateral ligament injuries. RADIATION DOSE DELIVERED: 261.72mGy.cm Total DLP DATA REPOSITORY: All CT scans at this facility are submitted to the National Radiology Data Registry (NRDR) Dose Index Registry (DIR) with the [employer] (ACR). RADIATION OPTIMIZATION: All CT scans at this facility use at least one of these dose optimization te chniques: automated exposure control; mA and/or kV adjustment per patient size (includes targeted exa ms where dose is matched to clinical indication); or iterative reconstruction.
--- NOTE | 2021-03-19 15:16 | DI.VRAD_ITS ---
PROCEDURE INFORMATION: Exam: XR Left Knee Exam date and time: 03/19/2021 1:59 PM Age: 55 years old Clinical indication: Pain; Knee; Left TECHNIQUE: Imaging protocol: XR Left knee. Views: 4 or more views. COMPARISON: US LEFT EXTREMITY ULTRASOUND 09/25/2017 7:27 AM FINDINGS: Bones/joints: There is an acute, probably mildly displaced and comminuted fracture of the lateral femoral condyle. No other fracture is identified. The joint spaces are normally aligned. A small superior patellar enthesophyte is present. There is a large associated lipohemarthrosis. Soft tissues: The soft tissues are mildly swollen laterally. IMPRESSION: Acute lateral femoral condyle fracture with large associated lipohemarthrosis. Dictated and Authenticated by: Rodo Barragan MD. Ordering:SULAIMAN Headley MD
--- NOTE | 2021-03-19 15:21 | DI.VRAD_ITS ---
PROCEDURE INFORMATION: Exam: CT Left Lower Extremity Without Contrast, Knee Exam date and time: 03/19/2021 2:06 PM Age: 55 years old Clinical indication: Injury or trauma; Other: Twisting injury; Sprain or strain; Patella or knee; Left; Injury date: 03/19/21 TECHNIQUE: Imaging protocol: CT of the Left lower extremity without contrast was performed. Exam focused on the knee. Radiation optimization: All CT scans at this facility use at least one of these dose optimization techniques: automated exposure control; mA and/or kV adjustment per patient size (includes targeted exams where dose is matched to clinical indication); or iterative reconstruction. COMPARISON: CR XR KNEE LT 4V AP,LAT,ALLI,PAT 03/19/2021 1:53 PM FINDINGS: Bones/joints: Redemonstrated is an acute, mildly displaced and comminuted fracture of the lateral femoral condyle, with extension to its anterolateral and distal articular surfaces. Displacement along the patellofemoral compartment measures up to 3 mm, as it does along the lateral compartment (the latter of which is assessed on independently generated reconstructions). It also extends posteriorly with a 2.9 cm wide fragment extending to the intertrochanteric notch. No additional fracture is identified. The joint spaces are normally aligned. A small superior patellar enthesophyte is again present. There is again a large associated lipohemarthrosis. Soft tissues: The soft tissues are mildly swollen anteriorly and laterally. Vasculature: Subcutaneous varicosities are noted posteriorly. IMPRESSION: Acute comminuted intra-articular fracture of the lateral femoral condyle with large associated lipohemarthrosis. Dictated and Authenticated by: Rodo Barragan MD. Ordering:SULAIMAN Headley MD
[2021-03-19 15:46] VITALS: BP 160/90; PULSE 86; TEMP 36.7; O2SAT 98
== END 2021-03-19 16:45 | disposition home or self-care (01) ==
PROVIDERS: Emergency Provider Physician Assistant; PCP Nurse Practitioner Family
DX: S72.492A Other fracture of lower end of left femur, initial encounter for closed fracture (principal); X50.1XXA Overexertion from prolonged static or awkward postures, initial encounter
CPT/HCPCS: 29505; 96361; 96365; 96375; 99284; 73564; 73700; J0131; J2060

== ENCOUNTER 2021-04-14 01:06 | Outpatient (CLI) | payer MEDICAID, SELFPAY ==
--- NOTE | 2021-04-14 07:00 | DI.US_ITS ---
Exam(s) US RENAL EXAM: US RENAL CLINICAL HISTORY: monitor known stones,BLADDER AND URETERAL STONE,N21.0,N20.1. TECHNIQUE: Chaudhary scale, color and spectral Doppler were used. COMPARISON: CT CT RENAL COLIC WO from 12/08/2020 FINDINGS: Renal size in cm: Right: 11. Left: 9.8. Echogenicity: Normal. Hydronephrosis: No. Cyst or mass: No. Nephrolithiasis: There are 2 echogenic foci seen within the left kidney. There is a 6 mm echogenic f ocus in the midpole. There is a 1 cm echogenic focus in the inferior pole. The findings are suspici ous for nonobstructing stones. Other findings: There is scarring in the inferior aspect of the left kidney. Bladder:There is again seen a bladder mass measuring at least 7.5 x 4.2 x 4.3 cm. The findings are s uspicious for neoplasm. There are echogenic foci seen within the urinary bladder suspicious for blad stephy stones. Calcification of the bladder mass cannot be excluded. Ureteral jets: Right: Not visualized on this examination. Left: Not visualized on this examination. Prevoid vol:319 cc Postvoid vol:222 cc Prostate: 111 cc Renal color flow: Symmetric and within normal limits. IMPRESSION: 1. Left nephrolithiasis. No hydronephrosis. 2. Urinary bladder mass suspicious for neoplasm. 3. Prostate enlargement. 4. Urinary bladder stones. DATA REPOSITORY:
== END 2021-04-14 01:26 ==
PROVIDERS: PCP Physician Assistant; Visit Provider Urology
DX: N20.1 Calculus of ureter (principal); N21.0 Calculus in bladder; N40.0 Benign prostatic hyperplasia without lower urinary tract symptoms; R93.49 Abnormal radiologic findings on diagnostic imaging of other urinary organs; N20.0 Calculus of kidney
CPT/HCPCS: 76770

== ENCOUNTER 2021-07-21 01:45 | Outpatient (CLI) | payer MEDICAID, SELFPAY ==
--- NOTE | 2021-07-21 06:45 | DI.US_ITS ---
Exam(s) US RENAL EXAM: US RENAL CLINICAL HISTORY: monitor known stones,calculus in bladder,n20.0,n21.0. TECHNIQUE: Chaudhary scale, color and spectral Doppler were used. COMPARISON: CT CT RENAL COLIC WO from 12/08/2020 US US RENAL from 04/14/2021 FINDINGS: Renal size in cm: Right: 11.2. Left: 10.2. Echogenicity: Normal. Hydronephrosis: No. Cyst or mass: No. Nephrolithiasis: There are stable echogenic foci seen in the left kidney consistent with nephrolithia sis. No hydronephrosis is present. Other findings: None. Bladder:There is again seen a bladder mass measuring at least 7.5 cm x 4.8 x 4.2 cm. Internal blood flow is seen. Two bladder stones are present. The larger measuring 8 mm. Ureteral jets: Right: Not visualized on this examination. Left: Not visualized on this examination. Prevoid vol:191 cc Postvoid vol:The patient was unable to void during this examination. Prostate: There is an enlarged prostate gland. Renal color flow: Symmetric and within normal limits. IMPRESSION: 1. Stable left nephrolithiasis. No hydronephrosis. 2. Stable bladder mass and enlarged prostate gland. Bladder/prostate neoplasm cannot be excluded. 3. Urinary bladder stones. DATA REPOSITORY:
== END 2021-07-21 02:05 ==
PROVIDERS: PCP Nurse Practitioner Family; Visit Provider Urology
DX: N20.0 Calculus of kidney (principal); N21.0 Calculus in bladder; N32.9 Bladder disorder, unspecified
CPT/HCPCS: 76770

== ENCOUNTER 2021-09-07 18:24 | Outpatient (REF) | payer MEDICAID, SELFPAY ==
[2021-09-07 14:43] LABS: HGB 15.8 g/dL (13.5-17.5); MCHC 32.9 % (32.0-36.0); MCV 88.1 fL (80-95); MPV 10.8 fL (8.0-11.0); Platelet Count 276 10^3/uL (130-400); RBC 5.45 10^6/uL (4.36-5.78); RDW-SD 41.7 fL; WBC 8.57 10^3/uL (4.4-10.8)
[2021-09-07 15:27] LABS: ALT 44 U/L (16-63); AST 17 U/L (15-37); Anion Gap 9.2 mmol/L (3-11); BUN 25 mg/dL (7-18); CO2 26.8 mmol/L (21.0-32.0); CREATININE 1.1 mg/dL (0.70-1.30); Calcium 9.3 mg/dL (8.5-10.1); Calculated LDL 139 mg/dL (<100); Chloride 107 mmol/L (98-107); Cholesterol 216 mg/dL (<200); Glucose 110 mg/dL (74-106); HDL Cholesterol 43 mg/dL (40-60); Potassium 5.3 mmol/L (3.5-5.1); Sodium 143 mmol/L (136-145); Triglyceride 173 mg/dL (<150)
[2021-09-07 22:43] LABS: PSA, Screening 13.1 ng/mL (0.0-3.5)
== END 2021-09-07 18:25 | disposition home or self-care (01) ==
LOC: NCHCN 18:24
PROVIDERS: PCP Nurse Practitioner Family; Visit Provider Nurse Practitioner Family
DX: I10 Essential (primary) hypertension (principal); E78.5 Hyperlipidemia, unspecified; R53.83 Other fatigue; R97.20 Elevated prostate specific antigen [PSA]; Z12.5 Encounter for screening for malignant neoplasm of prostate
CPT/HCPCS: 80048; 80061; 84153; 85027; 84450; 84460

== ENCOUNTER → 2022-01-19 00:39 | Outpatient (CLI) | payer MEDICAID, SELFPAY ==
--- OUTSIDE RECORDS SUMMARY | 2022-01-19 00:41 | XMS_ITS | Encounter Summary ---
:1965 Author Organization [facility] Address [place] [address] Care Team Providers Name Role Phone Salvador Nathalie TAWANNA Primary Care Provider Encounter Details Date Type Department Care Team Description 07/20/2021 Hospital Encounter XRay at [facility] Kamron Woods, Closed displaced [address] [place]ANARES fracture of condyle [place], [place] [facility] of left femur w [facility] [id number] routine healing, ORTHOPAEDIC subsequent enco unter SURGERY [place] [id number] Social History Tobacco Use Types Packs/Day Years Used Date Never Smoker Smokeless Tobacco: Never Used Alcohol Use Standard Drinks/Week Comments Yes 5 (1 standard drink = 0.6 oz pure alcoho l) Sex Assigned at Date Recorded Not on file documented as of this encounter Medications at Time of Discharge Medication Sig Dispensed Refills Start Date End Date tamsulosin (Flomax) 0.4 mg TAKE ONE CAPSULE BY 0 06/08/2021 Capsule MOUTH EVERY DAY acetaminophen (Tylenol) Take 1,000 mg by 0 500 mg Tablet mouth 3 times daily. buPROPion XL (Wellbutrin Take 300 mg by 0 XL) 300 mg Tablet Extended mouth daily. Release 24 hr simvastatin (ZOCOR) 40 mg Take 40 mg by mouth 0 Tablet daily. ibuprofen (Advil) 800 mg Take 800 mg by 0 Tablet mouth 3 times daily (with meals). buPROPion SR (Wellbutrin Take by mouth. 0 018 10/25/2021 SR) 150 mg tablet sustained-release 12 hr oxyCODONE (Roxicodone) 5 Take 1 tablet by 20 tablet 0 03/2410/25/2021 mg Tablet mouth every 4 hours as needed for Pain. documented as of this encounter Plan of Treatment Not on filedocumented as of this encounter Procedures Procedure Name Priority Date/Time Associated Diagnosis Comme nts XR KNEE STANDING Routine 07/20/2021 8:18 AM Closed displaced R esults for this ALIGNMENT AND 1-2 EST fracture of condyle pro cedure are in VIEWS LEFT of left femur with the resul ts routine healing, section. subsequent encounter documented in this encounter Results XR Knee Standing Alignment & 1-2 views Left (07/20/2021 8:18 AM EST) Anatomical Region Laterality Modality Knee Left Digital Radiography Specimen (Source) Anatomical Location Collection Method / Collectio n Time Received Time / Laterality Volume Impressions 07/20/2021 9:21 AM EST IMPRESSION: Status post internal fixation healing la teral condyle left femur fracture. Alignment is anatomic and stable. No rad iographic evidence of complication. Standing alignment weightbearing axis: m idline on the right; mild lateral deviation on the left. Thank you for letting us participate in the care of this patient. ??If you are a health care provider and have any questi ons regarding this report, please contact the number below. ??For patients who have questions please contact the health career placement services counselor that requested your imaging first. ? Narrative 07/20/2021 9:21 AM EST EXAMINATION: XR KNEE STANDING ALIGNMENT AND 1-2 VIEWS LEFT CLINICAL HISTORY: s/p left distal femur ORIF; TECHNIQUE: Standing knee alignment, supi ne AP and lateral left knee COMPARISON: Multiple priors, most recent 05/22/2021 FINDINGS: The patient is status post internal fixa tion of a left lateral femoral condyle fracture. Alignment is anatomic and stab le. The hardware is intact and stable. The fracture lines are less visible cons istent with interval healing. Generalized osteopenia. There is a small left knee joint effusion. Standing knee alignment: On the left, th ere is mild lateral displacement of the weight-bearing axis. On the right, the w eight-bearing axis is midline. Mild medial compartment joint space narrowing right knee. Surgical clips project over pelvis. Procedure Note Ana Paula Deleon MD - 2 EXAMINATION: XR KNEE STANDING ALIGNMENT AND 1-2 VIEWS LEFT CLINICAL HISTORY: s/p left distal femur ORIF; TECHNIQUE: Standing knee alignment, supi ne AP and lateral left knee COMPARISON: Multiple priors, most recent 05/22/2021 FINDINGS: The patient is status post internal fixa tion of a left lateral femoral condyle fracture. Alignment is anatomic and stab le. The hardware is intact and stable. The fracture lines are less visible cons istent with interval healing. Generalized osteopenia. There is a small left knee joint effusion. Standing knee alignment: On the left, th ere is mild lateral displacement of the weight-bearing axis. On the right, the w eight-bearing axis is midline. Mild medial compartment joint space narrowing right knee. Surgical clips project over pelvis. IMPRESSION IMPRESSION: Status post internal fixation healing la teral condyle left femur fracture. Alignment is anatomic and stable. No rad iographic evidence of complication. Standing alignment weightbearing axis: m idline on the right; mild lateral deviation on the left. Thank you for letting us participate in the care of this patient. If you are a health care provider and have any questi ons regarding this report, please contact the number below. For patients w ho have questions please contact the health career placement services counselor that requested your imaging first. Electronically signed by: Ana Paula Dale MD, [facility] ([phone]), at 07/20/2021 9:21 AM Kamron Woods MD IMG DX ORDERABLES documented in this encounter Visit Diagnoses Diagnosis Closed displaced fracture of condyle of left femur with routine healing, subsequent encounter documented in this encounter Care Teams Elementary Art Teacher Relationship Specialty Start Date End Date Nathalie Franco APRN PCP - General Family Medicine 03/20/21 [address] [place] [address] documented as of this encounter
--- OUTSIDE RECORDS SUMMARY | 2022-01-19 00:41 | XMS_ITS | Encounter Summary ---
:1965 [place] [address] Care Team Providers Name Role Phone Nathalie Franco TAWANNA Primary Care Provider Reason for Visit Auth/Cert Specialty Diagnoses / Procedures Referred By Contact Refer red To Contact Diagnoses Left lateral femoral condyle fracture, Hoffa fracture Procedures PRO OPEN TX FEMORAL FRACTURE DISTAL MED/LAT CONDYLE ORIF DISTAL FEMUR, MEDIAL OR LATERAL CONDYLE (WRVU 14.6) MODIFIER VARIAX 2 LOCKING MINI FRAGMENT FANNY Referral ID Status Reason Start Date Expiration Date Visits Requ ested Visits Authorized [id number] 1 1 Encounter Details Date Type Department Care Team Description 03/24/2021 Anesthesia Event Main Operating Room Dennise Hussain Barrow MD [facility] [place] [address] [place] [address] [phone] Anesthesia Record Procedure Summary Procedure Name Responsible Anesthesia Start Anesthesia Stop Time Anesthesiologist Time @ORIF DISTAL FEMUR, Hussain Barrow MD 03/24/21 0832 03/24/21 1248 MEDIAL OR LATERAL CONDYLE (WRVU 14.6) (Left Leg) Events Date Time Event Comment 03/24/2021 0800 0832 AN Verify 0832 Start 0832 An Start Data 0839 An Induction 0843 An Intubation 0845 Anesthesia Ready 0911 An Tourn Inflated LLE 250 mmHg 0911 Procedure Start 1111 An Tourn Deflated 1220 Quick Note Sustained tetanu s, 4/4 twitches 1237 Extubation/LMA Out 1238 an stop data 1248 Recovery or ICU Handoff Patient care was transferred to the destination unit staff after review of the patient's medica l history, current anesthetic/surgi alessandro status and plan, according to the Provider Handoff Checklist. 1248 Stop Name Total Midazolam 2 mg fentaNYL 200 mcg IV Lidocaine 60 mg Propofol 270 mg Rocuronium 100 mg PHENYLephrine 800 mcg Ondansetron 4 mg Neostigmine 4 mg Glycopyrrolate 0.8 mg ceFAZolin (Ancef) 2 g in dextrose 5% 100 mL (2 x 1 g/5 0 mL premix bags) 4 g infusion Dexmedetomidine 112 mcg Succinylcholine 200 mg Dexamethasone 4 mg HYDROmorphone 2 mg Lactated Ringers 1,500 mL Agents Name O2 Air N2O Sevoflurane (et) Blood No blood administrations on file. Lines, Drains, and Airways Type Details Placement Removal Incision 03/24/21; Left, distal, 03/24/21 0000 by Anni, abraham; thigh; left distal Yuki Hunter RN lateral thigh Incision 03/24/21; Left, medial; knee 03/24/21 0000 by Yuki Russell RN PIV 03/24/21; 0805; basilic vein 03/24/21 0805 by 1659 by Zeyad, (medial side of arm), left; Rodo Greene RN Elizabeth A, RN [id number] catheter system; Anatomical Landmarks; 18 gauge, 1 in length; distraction, intradermal injection, tolerated well; 1; metacarpal vein (top of hand), right; 03/24/21; 1659 ETT Mask Ventilation: Easy (1); 03/24/21 0843 by 07/14 1237 by Sites, ETT Type: Cuffed; ETT Size: Valerie Diaz CR NA Brian D, MD 7.5 mm; Mac Blade: 4; Notes: Asleep, Pre-O2, Cricoid Pressure, Stylette; Attempts: 2; Laryngoscopy Grade: 2; ETT Placement Verified By: Auscultation, Capnometry, Visual; Secured at Teeth: 23 cm; Inserted by: Dr. Barrow documented in this encounter Social History Tobacco Use Types Packs/Day Years Used Date Never Smoker Smokeless Tobacco: Never Used Alcohol Use Standard Drinks/Week Comments Yes 5 (1 standard drink = 0.6 oz pure alcoho l) Sex Assigned at Date Recorded Not on file documented as of this encounter OR Notes Anesthesia Postprocedure Evaluation - Hussain Barrow MD - 03/24/2021 1:05 PM EDT Department of Anesthesiology Post-procedure Note Patient: Rodo Elizabeth Procedure Summary Date: 03/24/21 Room / [facility]: [facility] Anesthesia Start: 08 Anesthesia Stop: Procedures: ORIF DISTAL FEMUR, MEDIAL OR LATERAL CONDYLE (WRVU 14.6) (Left Leg) MODIFIER VARIAX 2 LOCKING MINI FRAGMENT FANNY (Left Leg) Diagnosis: (Left lateral femoral condylefracture, Hoffa fracture) Surgeons: Kamron Woods MD Responsible Provider: Hussain Barrow MD Anesthesia Type: general ASA Status: 2 All Anesthesia Providers: Anesthesiologist: Hussain Barrow MD BURGLARY INVESTIGATOR: Valerie Diaz CRNA Vitals Value Taken Time BP 145/94 03/24/21 1300 Temp 36.9 ??C (98.4 ??F) 03/24/21 1241 Pulse Resp 18 03/24/21 1241 SpO2 92 % 03/24/21 1301 Pain Level 6 03/24/21 1247 Vitals shown include unvalidated device data. Patient Location: PACU/[facility] Level of Consciousness: Lethargic Pain Management: Pain Being Addressed PONV: None Cardiovascular Status: At Baseline Respiratory Status: At Baseline Postoperative Fluid Status: Intravascular EUvolemia Possible Anesthetic Complications: NONE apparent at time of evaluation Final Primary Anesthesia Type: General (The anesthetic type performed was the same as planned.) Comments: I have evaluated the patient in the postoperative period. The time of my evaluation may not match the note time. The patient is getting opioid therapy for surgical pain. There are no serious complications evident. Anesthesia Preprocedure Evaluation - Hussain Barrow MD - 03/24/2021 7:55 AM EDT Pre-Anesthesia Evaluation for: Rodo Elizabeth a 55 y.o. male. Procedure(s): ORIF DISTAL FEMUR, MEDIAL OR LATERAL CONDYLE (WRVU 14.6) MODIFIER VARIAX 2 LOCKING MINI FRAGMENT FANNY Patient Active Problem List Diagnosis ??? Closed fracture of condyle of left femur ??? Pneumothorax, spontaneous, tension ??? Bilateral inguinal hernia S/p repair ??? BPH (benign prostatic hyperplasia) History reviewed. No pertinent past medical history. History reviewed. No pertinent surgical history. Social History Tobacco Use ??? Smoking status: Never Smoker ??? Smokeless tobacco: Never Used Substance Use Topics ??? Alcohol use: Yes Alcohol/week: 5.0 standard drinks Types: 5 Cans of beer per week Social History Substance and Sexual Activity Drug Use Not Currently No Known Allergies Medications: MAR and/or home medications have been reviewed. Physical Exam: Preprocedure Vitals Current as of 03/24/21 0755 BP: 148/86 Pulse: 73 Resp: 18 SpO2: 98 Temp: 36.4 ??C (97.5 ??F) Height: 177.8 cm (5' 10) (03/24/21) Weight: 104.3 kg (230 lb) (03/24/21) BMI: 33 IBW: 73 kg (160 lb 15 oz) Last edited 03/24/21 0734 by DL Airway Assessment: Mallampati: II TM distance: >3 FB Neck ROM: full Cardiovascular Assessment: Rhythm: regular Rate: normal Pulmonary Assessment: breath sounds clear to auscultation Dental Assessment: Misc Assessment: Other exam findings: Full smith Last Filed Perioperative Cognitive Screening None Anesthesia Plan: ASA 2 general, with a(n) intravenous induction I have seen and examined the patient. I have reviewed the medical record and pertinent laboratory information. I have noted the major medical issues to include recent traumatic leg fracture and depression. He is appropriately NPO and denies GERD. He is receiving acute opioid therapy, but denies N/V and is eating well. I have reviewed risks from minor to major as outlined in the anesthesia consent form. I have highlighted risks related to airway management and perioperative opioid therapy. He is aware that our care model is based on a team and I will be working with either a BURGLARY INVESTIGATOR or resident physician. A resident physician means a physician who is in training to be an anesthesiologist. The patient acknowledged these risks and would like to proceed with the anesthesia plan. Balanced GA/ETT Region - Other Informed Consent: Anesthetic plan and risks discussed with patient. Use of blood products discussed with patient who consented to blood products. Plan discussed with BURGLARY INVESTIGATOR. Anesthesia Screening documented in this encounter Plan of Treatment Not on filedocumented as of this encounter Visit Diagnoses Not on filedocumented in this encounter Administered Medications Inactive Administered Medications - up to 3 most recent administrations Medication Order MAR Action Action Date Dose Rate Site ceFAZolin (Ancef) 2 g in dextrose Given 03/24/2021 12:18 PM EDT 2 g 5% 100 mL (2 x 1 g/50 mL premix bags) infusion 2 g, Intravenous, EVERY 3 HOURS, 1 dose, First dose on Sat03/24/21 at 0845, Administer over 30 Minutes, Redose after 3 hours. Total dose of ceFAZolin 2 grams, administered using two ceFAZolin 1g/50mL IV bags. Infuse each ceFAZolin 1g/50mL bag over 30 minutes (100 ml/hr) for total infusion time of 60 minutes. On the MAR, document administration of first bag using New Bag (1 of 2) MAR action for dose of 1g. On the MAR, document administration of second bag using Next Bag (2 of 2) MAR action for dose of 1g (resulting in total dose of 2g)., Intra-Operative (Intra-Procedure), Indication for (Active or Suspected): Prophylaxis Given 03/24/2021 8:48 AM EDT 2 g dexamethasone (Decadron) injection Given 03/24/2021 9:24 AM EDT 4 mg Intravenous, PRN, Starting on Sat03/24/21 at 0924, Until Sat03/24/21 at 1306, Anesthesia Intra-op, Routine dexmedetomidine (Precedex) (4 mcg/mL) bolus Given 06/2020 11:08 AM EDT 12 mcg injection (Anesthsia) Intravenous, PRN, Starting on Sat03/24/21 at 0851, Until Sat03/24/21 at 1306, Anesthesia Intra-op, Routine Given 03/24/2021 10:53 AM EDT 8 mcg Given 03/24/2021 10:44 AM EDT 4 mcg fentaNYL (pf) (50 mcg/mL) multi-dose Given 03/24/2021 9:50 AM ED T 50 mcg injection Intravenous, PRN, Starting on Sat03/24/21 at 0851, Until Sat03/24/21 at 1306, Anesthesia Intra-op, Routine Given 03/24/2021 9:21 AM EDT 50 mcg Given 03/24/2021 9:17 AM EDT 50 mcg glycopyrrolate (Robinul) (0.2 mg/mL) Given 03/24/2021 12:09 PM E DT 0.8 mg multi-dose injection Intravenous, PRN, Starting on Sat03/24/21 at 1209, Until Sat03/24/21 at 1306, Anesthesia Intra-op, Routine HYDROmorphone (Dilaudid) (2 mg/mL) Given 03/24/2021 12:09 PM EDT 0.2 mg multi-dose injection solution Intravenous, PRN, Starting on Sat03/24/21 at 0924, Until Sat03/24/21 at 1306, Anesthesia Intra-op, Routine Given 03/24/2021 10:53 AM EDT 0.2 mg Given 03/24/2021 10:44 AM EDT 0.2 mg lactated ringers infusion New Bag 03/24/2021 11:13 AM EDT Intravenous, CONTINUOUS PRN, Starting on Sat03/24/21 at 0832, Until Sat03/24/21 at 1306, Anesthesia Intra-op New Bag 03/24/2021 8:32 AM EDT lidocaine (pf) (Xylocaine) (20 mg/mL) 2% Given 03/24/2021 8:39 A M EDT 60 mg injection syringe Intravenous, PRN, Starting on Sat03/24/21 at 0839, Until Sat03/24/21 at 1306, Anesthesia Intra-op, Routine midazolam (pf) (Versed) (1 mg/mL) multi-dose Given 03/24/2021 8: 32 AM EDT 2 mg injection Intravenous, PRN, Starting on Sat03/24/21 at 0832, Until Sat03/24/21 at 1306, Anesthesia Intra-op, Routine neostigmine (Bloxiver) (1 mg/mL) injecti on Given 03/24/2021 12:09 PM EDT 4 mg Intravenous, PRN, Starting on Sat03/24/21 at 1209, Until Sat03/24/21 at 1306, Anesthesia Intra-op, Routine ondansetron (pf) (Zofran) (2 mg/mL) inje ction Given 03/24/2021 11:50 AM EDT 4 mg Intravenous, PRN, Starting on Sat03/24/21 at 1150, Until Sat03/24/21 at 1306, Anesthesia Intra-op, Routine PHENYLephrine in NS (PF) (MARY-SYNEPHRINE) Given 03/24/2021 11:38 AM EDT 80 mcg 0.8 mg/10 mL (80 mcg/mL) multi-dose injection Syrg Intravenous, PRN, Starting on Sat03/24/21 at 0859, Until Sat03/24/21 at 1306, Anesthesia Intra-op, Routine Given 03/24/2021 11:29 AM EDT 160 mcg Given 03/24/2021 11:26 AM EDT 160 mcg propofoL (Diprivan) 10 mg/mL bolus injection Given 9:17 AM EDT 20 mg (Anesthesia) Intravenous, PRN, Starting on Sat03/24/21 at 0839, Until Sat03/24/21 at 1306, Anesthesia Intra-op Given 03/24/2021 8:53 AM EDT 50 mg Given 03/24/2021 8:39 AM EDT 200 mg rocuronium (Zemuron) (10 mg/mL) multi-dose Given 03/24/2021 11:0 8 AM EDT 20 mg injection Intravenous, PRN, Starting on Sat03/24/21 at 0851, Until Sat03/24/21 at 1306, Anesthesia Intra-op, Routine Given 03/24/2021 10:44 AM EDT 10 mg Given 03/24/2021 9:51 AM EDT 20 mg succinylcholine (Anectine;Quelicin) (20 Given 03/24/2021 8:41 AM EDT 200 mg mg/mL) injection Intravenous, PRN, Starting on Sat03/24/21 at 0841, Until Sat03/24/21 at 1306, Anesthesia Intra-op, Routine documented in this encounter Care Teams Unhairing Machine Operator Relationship Specialty Start Date End Date Nathalie Franco APRN PCP - General Family Medicine 03/20/21 [address] [place] [address] documented as of this encounter
--- OUTSIDE RECORDS SUMMARY | 2022-01-19 00:41 | XMS_ITS | Encounter Summary ---
:1965 Author Organization [facility] [place] [address] Care Team Providers Name Role Phone Nathalie [...] Expiration Date Visits Requ ested Visits Authorized [id number] 1 1 Encounter Details Date Type Department Care Team Description 03/24/2021 Surgery Main Operating Room Rosmery Woods MD @ORIF DISTAL FEMUR, [facility] R [facility] CONDYLE (WRVU 14.6) [facility] ORTHOPAEDIC [address] [id number] [phone] Social History Tobacco Use Types Packs/Day Years Used Date Never Smoker Smokeless Tobacco: Never Used Alcohol Use Standard Drinks/Week Comments Yes 5 (1 standard drink = 0.6 oz pure alcoho l) Sex Assigned at Date Recorded Not on file documented as of this encounter Last Filed Vital Signs Vital Sign Reading Time Taken Comments Blood Pressure 148/86 03/24/2021 7:34 AM EDT Pulse 73 03/24/2021 7:34 AM EDT Temperature 36.4 ??C (97.5 ??F) 03/24/2021 7:34 AM EDT Respiratory Rate 18 03/24/2021 7:34 AM EDT Oxygen Saturation 98% 03/24/2021 7:34 AM EDT Inhaled Oxygen Concentration - - Weight 104.3 kg (230 lb) 03/24/2021 7:34 AM EDT Height 177.8 cm (5' 10) 03/24/2021 7:34 AM EDT Body Mass Index 33 03/24/2021 7:34 AM EDT documented in this encounter Discharge Instructions Patient InstructionsWilliam Juarez MD - 03/24/2021 12:15 PM EDT Activity level: 1. You are Non-weight bearing on your Left leg. Wear your hinged knee brace at all times. It may be unlocked to allow range of motion as tolerated. 2. Remember to use the walker or crutches at all times for protection and balance. 3. Remember to keep your Left leg elevated as much as possible to decrease swelling and control pain. Anticoagulation: Lovenox - You have been discharged on Lovenox injections (40mg daily) for 30 days or until your mobility improves and surgeon instructs you to stop. Diet: You may return to your usual diet, but increase your fluids and fiber intake to keep you hydrated and your bowels soft. To help with wound healing increase your intake of high protein foods and fluids. Driving: None until you are cleared to do so by your Orthopedic surgeon. You should not drive while you are on narcotic pain meds as they can affect your judgment and reaction time. Call your surgeon with any questions/concerns. Medications: 1. The pain medication you are on can cause constipation so increase your intake of fluids and fiberwhile you are on them. The stool softener, Pericolace, that has been prescribed can also be taken tofacilitate a bowel movement. You can also take an qzfn-sbz-[id number] medication, Miralax if needed to combat constipation. 2. If you need a renewal on your narcotic pain medication, you need to give the Orthopedic clinic enough time to process your request. This can take up to three days, so plan accordingly. 3. Continue acetaminophen (Tylenol) 1,000mg every 8 hours around the clock for 10 days following surgery. This can be effective in controlling pain along with your other medications. After that you cantake Tylenol as needed per package insert. Do not take more than 3,000mg of acetaminophen in a 24 hour period. 4. You have been discharged on a short acting narcotic. You will be on this medication for a limitedperiod of time only. Taper off this medication as your pain improves. 5. Do not take any NSAIDs including ibuprofen, Motrin or Aleve. Shower/Bath: You may shower BUT use a waterproof dressing (plastic bag taped at the top) to cover the incision/dressing. DO NOT submerge the wound. Remember you MUST to observe your weight bearing status and activity limitations when you shower so use a chair or bench for balance if you are unable to safely stand. A sponge bath may be easier. Wound Care: 1. Suture/staple removal 2 weeks post-op (04/06/21). 2. Leave the operative dressing in place for at least 7 days. After that time, it may be removed andleft open to air. If you find that the brace rubs on your incision, please keep it covered with a dry sterile dressing. Call your doctor ([phone]) if you develop: 1. Fever greater than 100.5 2. Severe nausea or vomiting 3. Increasing pain that is not controlled by pain medications 4. Increasing redness, swelling, or drainage from incisions 5. Change in sensation FOLLOW-UP APPOINTMENTS: 1. You will have follow-up appointments at [facility] as indicated in Future Appointment and Orders. Youwill have an xray prior to those appointments so please come to Radiology, desk 3T, 1 hour BEFORE your appointment for those x- rays on . 2. If you are being discharged over the weekend or at night and do not have a scheduled appointment with Orthopedics, you should be notified about your appointment within the next 1-2 days. Please [phone] if you do not hear about an appointment within that timeframe, as your follow-up is important to us. If you have questions or concerns: Saturday through Saturday, 8 AM - 5 PM, please call Kamron Woods MD, 's office at . If it is after 5 PM or on the weekend, please call and ask to speak with the Orthopedic resident on-call. documented in this encounter Medications at Time of Discharge Medication Sig Dispensed Refills Start Date End Date acetaminophen Take 1,000 mg by mouth 0 (Tylenol) 500 mg 3 times daily. Tablet buPROPion XL Take 300 mg by mouth 0 (Wellbutrin XL) 300 mg daily. Tablet Extended Release 24 hr simvastatin (ZOCOR) 40 Take 40 mg by mouth 0 mg Tablet daily. ibuprofen (Advil) 800 Take 800 mg by mouth 3 0 mg Tablet times daily (with meals). buPROPion SR Take by mouth. 0 06/24/2017 10/26/19 22 (Wellbutrin SR) 150 mg tablet sustained-release 12 hr enoxaparin (Lovenox) Inject 0.4 mLs 12 mL 0 03/24/2021 04/23/2021 40 mg/0.4 mL Syringe subcutaneously daily for 30 days. oxyCODONE (Roxicodone) Take 1 tablet by mouth 20 tablet 0 1 10/25/2021 5 mg Tablet every 4 hours as needed for Pain. documented as of this encounter H&P Notes Joseluis Acosta MD - 03/24/2021 7:46 AM EDT Patient Name: Rodo Elizabeth Patient Age: 55 y.o. Birthdate: 1965 Admit date: 03/24/2021 Attending Physician: Kamron Woods MD PRE-OPERATIVE HISTORY AND PHYSICAL for ADMISSION, OBSERVATION OR PROCEDURE Date of : 1965 Age: 55 y.o. PCP: Nathalie Franco APRN Presenting Diagnosis/Chief Complaint: No chief complaint on file. History of Present Illness: Rodo Elizabeth is a 55 y.o. male who presents for pre-operative examination. Please see Dr. Woods's note for full details of the patient's specific problem. Patient denies any changes since last seenin clinic. Denies fevers, chills, headache, dizziness, chest pain, or shortness of breath. PMHx: Patient Active Problem List Diagnosis Code ??? Pneumothorax, spontaneous, tension J93.0 ??? Bilateral inguinal hernia K40.20 ??? BPH (benign prostatic hyperplasia) N40.0 ??? Closed fracture of condyle of left femur S72.412A History reviewed. No pertinent past medical history. History reviewed. No pertinent surgical history. Home Medications: Medications Prior to Admission Medication Sig Dispense Refill Last Dose ??? ibuprofen (Advil) 800 mg Tablet Take 800 mg by mouth 3 times daily (with meals). 03/23/2021 at Unknown time ??? acetaminophen (Tylenol) 500 mg Tablet Take 1,000 mg by mouth 3 times daily. 03/23/2021 at Unknowntime ??? buPROPion XL (Wellbutrin XL) 300 mg Tablet Extended Release 24 hr Take 300 mg by mouth daily. 03/23/2021 at Unknown time ??? simvastatin (ZOCOR) 40 mg Tablet Take 40 mg by mouth daily. 03/23/2021 at Unknown time Allergies: No Known Allergies Family History: Non contributory History reviewed. No pertinent family history. Social History: Alcohol: social drinker Tobacco: unknown tobacco use Drug: no history of illicit drug use Review of Systems: complete 10 system ROS performed with pertinent findings below. Pertinent items are noted in HPI. Physical Exam: VITALS: Temperature Temp: 36.4 ??C (97.5 ??F) Heart Rate Heart Rate: 73 Blood Pressure BP: 148/86 Respiratory Rate Resp: 18 SpO2 SpO2: 98 % No intake/output data recorded. General: alert, appears stated age and cooperative Pulmonary: Normal, equal, clear breath sounds bilaterally and no crepitus Cardiovascular: Regular rate and rhythm, S1S2 present or without murmur or extra heart sounds Assessment and Plan: 55 y.o. male with the above problem, plan to proceed to OR with Dr. Woods for left lateral femoral condyle fracture fixation. Joseluis Acosta MD Orthopaedic Surgery Pager: [phone] Associated attestation - Kamron Woods MD - 03/24/2021 12:56 PM EDT The patient's history and physical exam have been reviewed and completed. There has been no intervalchange from that of the pre-operative history and physical exam done within the last 30 days. We re reviewed the risks and benefits of surgery. Risks include but are not limited to pain, infection, bleeding, damage to surrounding tissue, need for further surgery, malunion, nonunion, failure to heal, deep vein thrombosis, pulmonary embolism, and . The patient understands and would like to proceed. Kamron Woods MD Orthopaedic Surgery documented in this encounter Miscellaneous Notes Op Note - Kamron Woods MD - 03/24/2021 9:12 AM EDT [facility] Operative Note Patient Name: Rodo Elizabeth : [id number] MR#: [id number] Case Date: 03/24/2021 Surgeon: Surgeon(s) and Role: * Kamron Woods MD - Primary * William Juarez MD - Resident * Joseluis Acosta MD - Resident Preoperative diagnosis: Left lateral femoral condyle fracture, Hoffa fracture Postoperative diagnosis: Left lateral femoral condyle fracture, Hoffa fracture Procedure(s) (LRB): ORIF DISTAL FEMUR, MEDIAL OR LATERAL CONDYLE (WRVU 14.6) (Left) MODIFIER VARIAX 2 LOCKING MINI FRAGMENT FANNY (Left) Findings: Left distal femur fracture of the lateral condyle. Epicondyle fracture, hoffa fragment, and sagittal split of lateral condyle. Anesthesia: General Estimated Blood Loss: * No values recorded between 03/24/2021 9:12 AM and 03/24/2021 12:22 PM * Specimens removed during surgery: None Drains: * No LDAs found * Surgical Closure: Primary Closure - skin incision is completely closed without any wires, xiao, drains or other devices Disposition: awakened from anesthesia, extubated and taken to the recovery room in a stable condition, having suffered no apparent untoward event. Condition: doing well without problems (Please see the Surgical Encounter Summary for any Implant and Specimen details pertinent to this patient.) HPI/Surgical Indications: This is a 55 y.o. male who had a ground level fall sustaining an injury tohis left knee. The patient [facility] and was found to have a left distal femur lateral condyle fracture on CT scan. He is indicated for open reduction internal fixation. Once the patient was optimized for surgery, it was discussed with the patient to go to the operating room for the above-mentioned procedure. Risk benefits and alternatives of surgical and nonsurgical management were discussed. Risks include but are not limited to pain bleeding infection nonunion malunion failure to heal need for further surgery damage to surrounding structures deep vein thrombosis pulmonary embolism and . He understood the risks and consented to proceed. Procedure Description: The patient was brought to the operating room and identified. The patient underwent induction of general anesthesia and was transferred to a flat Dank operating table in a supine position. All bony prominences and pressure points were padded appropriately. The patient received prophylactic antibiotics within 30 minutes of incision. The left lower extremity was then prepped and draped in sterile fashion. A direct lateral approach was made to the left distal femur. The dissection was taken sharply through skin and subcutaneous tissue. Venous bleeding was ligated with electrocautery. The iliotibial band was incised in line with theincision down to Nani's tubercle. An arthrotomy was made in the lateral retinaculum to visualize the articular surface. The epicondyle fracture was then identified. This was freed of soft tissue and reflected along with the lateral ligamentous complex. This gave excellent visualization of the lateral articular surface as well as the posterior condyle fracture. Posterior condyle fracture was then magdalena ntified. It was cleaned of fracture hematoma and reduced with a clamp. 2 lag screws were then placedfrom anterior to posterior. These were 2x2.7 mm cortical screws, that were placed with lag by technique through percutaneous incisions just lateral to the patella. They were countersunk to avoid any contact with the patella. Fluoroscopic imaging showed satisfactory placement of the screws. Next the sagittal split in the lateral condyle was identified and cleaned of fracture hematoma. Thiswas then reduced with a combination of clamps dental picks and a large C-clamp with the medial sindhu placed through a separate stab incision on the medial side of the distal femur. This was provisionally held with K wires. A Fanny 2.7 narrow locking mini frag plate was then cut to fit the lateral border of the distal femur just adjacent to the articular surface. This was curved to fit the curve of the lateral condyle. The plate effectively buttressed the fracture and was secured to the bone with a combination of cortical and locking screws. There were 2 locking screws that were able to be placed at the posterior holes of the plate into the Hoffa fragment providing extra fixation. Next attention was then turned to the epicondyle fragment. The fragment was cleaned and reduced and held with provisional K wires. A Fanny 2.7 mini fragment T plate was then cut into an L-shaped to fit the footprint of the fracture. This was secured to the bone with cortical screws both distally and proximally. To augment the fixation of the epicondyle fracture a 2-0 FiberWire was Krak??w down the lateral ligament and tied to the mini frag plate. Final fluoroscopic imaging showed satisfactory reduction and alignment, with safe placement of all hardware. The tourniquet was then taken down and hemostasis was achieved with electrocautery. The wounds were irrigated. The arthrotomy was closed with 0 Vicryl. The IT band was closed with 0-Vicryl and the skinwas closed with 2-0 Vicryl and 3-0 nylon. Dressings were applied with Steri-Strips Xeroform 4 x 4's and webril. Final intraoperative radiographs were obtained which confirmed the fluoroscopic findings.He was placed into a hinged knee brace unlocked. He was awakened and extubated in the operating roomand taken to the recovery room in stable condition. All counts were correct there were no complications the patient appeared to tolerate the procedure well. Postoperative plan: The patient will be nonweightbearing to the left lower extremity. He will be maintained in a hinged knee brace unlocked. He will receive less than 24 hours of perioperative antibiotics. He will be maintained on routine DVT prophylaxis. He will follow up in 2 weeks for xrays of the left knee out of the brace.. Infection Bundle used? No Attestation: Case Date: 03/24/2021 I was present and I participated during the entire procedure (does not need to include opening and closing). Kamron Woods MD 03/24/2021 documented in this encounter Plan of Treatment Not on filedocumented as of this encounter Procedures Procedure Name Priority Date/Time Associated Diagnosis Comme nts XR KNEE AP & LAT Routine 03/24/2021 12:45 PM Resu lts for this LEFT EDT procedure are i n the results section. XR FLUORO NO RAD Routine 03/24/2021 11:57 AM Resu lts for this <1HR - OR USE EDT procedure are in the results section. MODIFIER VARIAX 2 Yes 03/24/2021 8:32 AM Left lateral femo ral LOCKING MINI EDT condyle fracture, FRAGMENT FANNY Hoffa fracture @ORIF DISTAL FEMUR, Yes 03/24/2021 8:32 AM Left lateral fe moral MEDIAL OR LATERAL EDT condyle fracture, CONDYLE (WRVU 14.6) Hoffa fracture ORIF DISTAL Routine 03/24/2021 6:44 AM FEMUR,MEDIAL OR EDT LATERAL CONDYLE documented in this encounter Results XR Knee 1-2 Views Left (Generic) (04/13/2021 8:49 AM EDT) Anatomical Region Laterality Modality Knee Left Digital Radiography Specimen (Source) Anatomical Location Collection Method / Collectio n Time Received Time / Laterality Volume Impressions 04/13/2021 9:18 AM EDT Healing lateral condyle fracture status post internal fixation. Thank you for letting us participate in the care of this patient. ??If you are a health care provider and have any questi ons regarding this report, please contact the number below. ??For patients who have questions please contact the health nanny caregiver that requested your imaging first. ? Electronically signed by: Tavo Varner MD , [facility] ([phone]), at 04/13/2021 9:18 AM Narrative 04/13/2021 9:18 AM EDT EXAMINATION: XR KNEE 1-2 VIEWS LEFT (GENERIC) CLINICAL HISTORY: s/p ORIF L femur later al condyle TECHNIQUE: 2 views LEFT knee COMPARISON: 03/24/2021 FINDINGS: Status post internal fixation of lateral femoral condyle fracture. The hardware is intact and unchanged in alignment. Th e fracture lines are less visible. Resolution of soft tissue gas in joint e ffusion. Normal alignment at the knee. Procedure Note Tavo Varner MD - 04/13/2021Formatting o f this note might be different from the original. EXAMINATION: XR KNEE 1-2 VIEWS LEFT (GEN SANDY) CLINICAL HISTORY: s/p ORIF L femur later al condyle TECHNIQUE: 2 views LEFT knee COMPARISON: 03/24/2021 FINDINGS: Status post internal fixation of lateral femoral condyle fracture. The hardware is intact and unchanged in alignment. Th e fracture lines are less visible. Resolution of soft tissue gas in joint e ffusion. Normal alignment at the knee. IMPRESSION Healing lateral condyle fracture status post internal fixation. Thank you for letting us participate in the care of this patient. If you are a health care provider and have any questi ons regarding this report, please contact the number below. For patients w ho have questions please contact the health nanny caregiver that requested your imaging first. Electronically signed by: Tavo Varner MD , [facility] ([phone]), at 04/13/2021 9:18 AM Kamron Woods MD IMG DX ORDERABLES XR Knee 1-2 Views Left (Generic) (03/24/2021 12:45 PM EDT) Anatomical Region Laterality Modality Knee Left Digital Radiography Specimen (Source) Anatomical Location Collection Method / Collectio n Time Received Time / Laterality Volume Impressions 03/24/2021 1:38 PM EDT No radiographic evidence of hardware complication. Thank you for letting us participate in the care of this patient. ??If you are a health care provider and have any questi ons regarding this report, please contact the number below. ??For patients who have questions please contact the health nanny caregiver that requested your imaging first. ? Electronically signed by: Tavo Varner MD , [facility] ([phone]), at 03/24/2021 1:38 PM Narrative 03/24/2021 1:38 PM EDT EXAMINATION: XR KNEE 1-2 VIEWS LEFT (GENERIC) CLINICAL HISTORY: ORIF TECHNIQUE: 2 views LEFT knee COMPARISON: CT 03/19/2021 FINDINGS: There is postoperative gas. Status post internal fixation of lateral femoral condyle fracture. Hardware is intact. Fr acture has been reduced. Normal alignment of the knee. Joint spaces are preserved. Procedure Note Tavo Varner MD - 03/24/2021Formatting o f this note might be different from the original. EXAMINATION: XR KNEE 1-2 VIEWS LEFT (GEN SANDY) CLINICAL HISTORY: ORIF TECHNIQUE: 2 views LEFT knee COMPARISON: CT 03/19/2021 FINDINGS: There is postoperative gas. Status post internal fixation of lateral femoral condyle fracture. Hardware is intact. Fr acture has been reduced. Normal alignment of the knee. Joint spaces are preserved. IMPRESSION No radiographic evidence of hardware com plication. Thank you for letting us participate in the care of this patient. If you are a health care provider and have any questi ons regarding this report, please contact the number below. For patients w ho have questions please contact the health nanny caregiver that requested your imaging first. Electronically signed by: Tavo Varner MD , [facility] ([phone]), at 03/24/2021 1:38 PM Kamron Woods MD IMG DX ORDERABLES XR Fluoro No Rad <1Hr - OR Use (03/24/2021 11:57 AM EDT) Specimen (Source) Anatomical Location Collection Method / Collectio n Time Received Time / Laterality Volume Narrative Dicom, Auditing User - 03/24/2021 1:03 P M EDT This exam is auto-finalizing. No interpr etation was done. Kamron ALVES FLUORO ORDERABLES documented in this encounter Visit Diagnoses Not on filedocumented in this encounter Administered Medications Inactive Administered Medications - up to 3 most recent administrations Medication Order MAR Action Action Date Dose Rate Site HYDROmorphone (Dilaudid) (0.2 mg/1 Given 03/24/2021 2:37 PM EDT 0.2 mg mL) injection syringe 0.2 mg 0.2 mg, Intravenous, EVERY 10 MIN PRN, Starting on Sat03/24/21 at 1240, Until Sat03/24/21 at 1701, Pain, For Mild to Moderate Pain (1-5 out of 10), Hold for respiratory rate less than 10 per minute. Maximum dose 3 mg over one hour including administrations in the OR. If multiple pain medications are ordered, start with HYDROmorphone or morphine and use fentaNYL for breakthrough pain, PACU Recovery, Routine Given 03/24/2021 1:47 PM EDT 0.2 mg HYDROmorphone (Dilaudid) (0.2 mg/1 mL) Given 03/24/2021 1:04 PM EDT 0.4 mg injection syringe 0.4 mg 0.4 mg, Intravenous, EVERY 10 MIN PRN, Starting on Sat03/24/21 at 1240, Until Sat03/24/21 at 1701, Pain, For Moderate to Severe Pain (6-10 out of 10), Hold for respiratory rate less than 10 per minute. Maximum dose 3 mg over one hour including administrations in the OR. If multiple pain medications are ordered, start with HYDROmorphone or morphine and use fentaNYL for breakthrough pain, PACU Recovery, Routine Given 03/24/2021 12:47 PM EDT 0.4 mg oxyCODONE (Roxicodone) tablet 5 mg Given 03/24/2021 1:23 PM EDT 5 mg 5 mg, Oral, ONCE, 1 dose, On Sat03/24/21 at 1315, Routine documented in this encounter Active and Recently Administered Medications Times are shown in EDT. Scheduled Medication Order 03/22/2021 03/23/2021 03/24/2021 ceFAZolin (Ancef) 2 g in dextrose 5% 100 mL (2 x 1 g/50 mL premix bags) infusion (COMPLETED) 0848 (Given - Provid er: Valerie Diaz CRNA)1218 (Given - Provider: Hussain Barrow MD) 2 g, Intravenous, EVERY 3 HOURS, 1 dose, First dose on Sat03/24/21 at 0845, Administer over 30 Minutes, Redose after 3 hours. Total dose of ceFAZolin 2 grams, administered using two ceFAZolin 1g/50mL IV bags. Infuse each ceFAZolin 1g/50mL bag over 30 minutes (100 ml/hr) for total infusion time of 60 minutes. On the AUG, document administration of first bag using New Bag (1 of 2) MAR action for dose of 1g. On the AUG, document administrati on of second bag using Next Bag (2 of 2) MAR action for dose of 1g (resulting in total dose of 2g)., Intra-Operative (Intra-Procedure), Indication for (Active or Suspected): Prophylaxis oxyCODONE (Roxicodone) tablet 5 mg (COMPLETED) 1323 (Given - Provider: Babrra Hector, EM) 5 mg, Oral, ONCE, 1 dose, On Sat03/24/21 at 1315, Routine PRN Medication Order 03/22/2021 03/23/2021 03/24/2021 HYDROmorphone (Dilaudid) (0.2 mg/1 mL) injection syringe 0.2 mg (CANCELED) 1247 (See Alternative - Provider: Lizet Jeffers RN)1304 (See Alternative - Provider: Lizet Jeffers RN)1347 (Given - Provider: Barbra Hector, EM)1437 (Given - Provider: Lizet Jeffers RN) 0.2 mg, Intravenous, EVERY 10 MIN PRN, S tarting on Sat03/24/21 at 1240, Until Sat03/24/21 at 1701, Pain, For Mild to Moderate Pain (1-5 out of 10), Hold for respiratory rate less than 10 per minute. Max imum dose 3 mg over one hour including a dministrations in the OR. If multiple pain medications are ordered, start with HYDROmorphone or morphine and use fentaNYL for breakthrough pain, PACU Recovery, Routine HYDROmorphone (Dilaudid) (0.2 mg/1 mL) injection syringe 0.4 mg (CANCELED) 1247 (Given - Provider: Lizet Jeffers RN)[phone] (Given - Provider: Lizet Jeffers RN)[phone] (See Alternative - Provider: Barbra Hector RN)[phone] (See Alternative - Provider: Lizet Jeffers RN) 0.4 mg, Intravenous, EVERY 10 MIN PRN, S tarting on Sat03/24/21 at 1240, Until Sat03/24/21 at 1701, Pain, For Moderate to Severe Pain (6-10 out of 10), Hold for respiratory rate less than 10 per minute. Maximum dose 3 mg over one hour includin g administrations in the OR. If multiple pain medications are ordered, start with HYDROmorphone or morphine and use fentaNYL for breakthrough pain, PACU Recovery, Routine documented in this encounter Care Teams Technical Programs Manager Relationship Specialty Start Date End Date Nathalie Franco APRN PCP - General Family Medicine 03/20/21 [address] [place] [address] documented as of this encounter
--- OUTSIDE RECORDS SUMMARY | 2022-01-19 00:41 | XMS_ITS | Encounter Summary ---
:1965 Author Organization [facility] [place] [address] Care Team Providers Name Role Phone Alysia Campbell APRN Primary Care Provider [phone] Encounter Details Date Type Department Care Team Description 10/11/2017 Orders Only Vascular Surgery at [facility] Katlyn Vital, EL[facility] [address] [place] [address] [place] [address] [phone] (Wo rk) Social History Tobacco Use Types Packs/Day Years Used Date Former Smoker Smokeless Tobacco: Never Used Sex Assigned at Date Recorded Not on file documented as of this encounter Plan of Treatment Not on filedocumented as of this encounter Visit Diagnoses Not on filedocumented in this encounter Care Teams Advance Seal Delivery System Maintainer Relationship Specialty Start Date End Date Alysia Campbell APRN PCP - General Family Medicine 08/09/17 03/19/21 [address] [place] [address] documented as of this encounter
--- OUTSIDE RECORDS SUMMARY | 2022-01-19 00:41 | XMS_ITS | Encounter Summary ---
:1965 Author Organization [facility] [place] [address] Care Team Providers Name Role Phone Alysia Campbell APRN Primary Care Provider [phone] Encounter Details Date Type Department Care Team Description 03/19/2021 Telephone [place] [facility] [place] Turner, [facility] [place] [address] [facility] [phone] ORTHOPAEDIC SURG [place], [place] [address] (Wo rk) Social History Tobacco Use Types Packs/Day Years Used Date Former Smoker Smokeless Tobacco: Never Used Sex Assigned at Date Recorded Not on file documented as of this encounter Miscellaneous Notes Telephone Encounter - Tal Turner MD - 03/19/2021 3:26 PM EDT [facility] ELISE Banegas 55M healthy, works at [employer] per report suffered a twisting injury to the left knee/femurwhile cleaning last night. He was initially able to ambulate but this morning was unable to get off the toilet and had to call an ambulance. He was found to have a left distal lateral femoral condyle intra-articular fracture. Reported no additional injuries and NVI. Compartments report to be soft and compressible with pain well controlled. Recommended NWB in knee brace locked in extension. Will plan to have him follow-up in the ortho clinic with discussion of potential operative management. His contact number is: [phone] He will need XR's of the left knee prior to his clinic appointment. documented in this encounter Plan of Treatment Not on filedocumented as of this encounter Visit Diagnoses Not on filedocumented in this encounter Care Teams Analytic Programmer Relationship Specialty Start Date End Date Alysia Campbell APRN PCP - General Family Medicine 08/09/17 03/19/21 [address] [place] [address] documented as of this encounter
--- OUTSIDE RECORDS SUMMARY | 2022-01-19 00:41 | XMS_ITS | Encounter Summary ---
:1965 Author Organization [facility] [place] [address] Care Team Providers Name Role Phone Nathalie Franco APRN Primary Care Provider Reason for Referral Physical Therapy (Routine) - Closed Specialty Diagnoses / Procedures Referred By Contact Refer red To Contact Physical Therapy Diagnoses Closed displaced fracture of condyle of left femur with routine healing, subsequent encounter Clair Nair MD [facility] [place] [address] Referral ID Status Reason Start Date Expiration Date Visits V isits Requested Authorized [id number] Closed Evaluate and 05/22/2021 11/18/2021 12 12 Treat Reason for Visit Reason Comments Follow Up Surgery s/p ORIF L Lateral Femoral C ondyle Fx DOS 03/24/2021 DOS 03/18/2021 Encounter Details Date Type Department Care Team Description 05/22/2021 [place] [facility] [place] Nair [place] Closed displaced [facility] fracture of condyle [facility] [place] [address] ORTHOPAEDIC routine healing, SURGERY subsequent encounter [place] [id number] Social History Tobacco Use Types Packs/Day Years Used Date Never Smoker Smokeless Tobacco: Never Used Alcohol Use Standard Drinks/Week Comments Yes 5 (1 standard drink = 0.6 oz pure alcoho l) Sex Assigned at Date Recorded Not on file documented as of this encounter Last Filed Vital Signs Vital Sign Reading Time Taken Comments Blood Pressure 132/85 05/22/2021 9:08 AM EST Pulse 81 05/22/2021 9:08 AM EST Temperature - - Respiratory Rate - - Oxygen Saturation - - Inhaled Oxygen Concentration - - Weight 104.3 kg (230 lb) 05/22/2021 9:08 AM EST copied Height 177.8 cm (5' 10) 05/22/2021 9:08 AM EST Body Mass Index 33 05/22/2021 9:08 AM EST documented in this encounter Progress Notes Clair Nair MD - 05/22/2021 9:00 AM EST [facility] Rodo Elizabeth returns for follow-up 8 weeks s/p left distal femur ORIF on 03/24/21. He reports he is doing well. His pain is well controlled. He is working on ROM of the left knee with PT. Still NWB LLE which he is compliant with, using walker or crutches to ambulate. He is anxious to start walking. He has no other complaints today, and has a negative review of systems. [facility] FollowUp 05/22/2021 Health in general Good Quality of life Very Good Physical health Good Mental health Fair Satisfaction with social activities Fair Ability to carry out physical activities A little Rate of pain 1 Rate of fatigue Severe Ability to carry out social activities Good Bothered by emotional problems Often PROMIS PHYSICAL HEALTH SCORE 37.4 PROMIS MENTAL HEALTH SCORE 38.8 Gone to ER since knee surgery No Admitted to hospital since knee surgery No Additional surgery on same knee No Employment status before injury Currently working Returned to previous employment Yes Working at same capacity as before injury No Spending time in inpatient rehab facility No Rate overall condition today 7 Physical Exam: In general he is a well appearing 55 y.o. male who is no acute distress, and was calm and cooperative throughout the examination. Examination of the left leg reveals the incisions are well healed. Minimal swelling. No erythema or signs of infection. EPL/FPL/Intrinsics/EHL/FHL/TA/GC are intact. Capillary refill is < 3 seconds. Sensation to light touch is intact throughout. Knee ROM 5-110 Radiographs: 2 views of the left knee were obtained and reviewed. This demonstrates maintained alignment and reduction compared to prior radiographs. There are no changes in implant position or evidence of implant failure or loss of fixation. Fracture lines are not visible. No other osseous abnormalities. Assessment and Plan: Rodo Elizabeth is a 55 y.o. male who returns for follow-up 8 weeks s/p surgery. He is doing well, healing as expected. -Weight Bearing Status: progress WBAT LLE -Continue range of motion exercises, gait training, and progressive WBAT with PT, a new Rx was giventoday. -Follow-up in 8 weeks for clinical evaluation and xrays of the left knee This plan was discussed with the patient and he is in agreement. All of the patient's questions wereanswered. Clair Nair MD Department of Orthopaedic Surgery 05/22/21 documented in this encounter Miscellaneous Notes Addendum Note - Clair Nair MD - 05/22/2021 9:00 AM EST Addended by: CLAIR NAIR on: 05/22/2021 10:52 AM Modules accepted: Orders documented in this encounter Plan of Treatment Scheduled Referrals Name Type Priority Associated Diagnoses Order S chedule Referral to Outpatient Referral Routine Closed displaced Orde red: Physical Therapy fracture of condyle 04/25 of left femur with routine healing, subsequent encounter documented as of this encounter Results XR Knee Standing Alignment [...] who have questions please contact the health youth care professional that requested your imaging first. ? Electronically signed by: Ana Paula Dale MD, [facility] ([phone]), at 07/20/2021 9:21 AM Narrative 07/20/2021 9:21 AM EST EXAMINATION: XR [...] ho have questions please contact the health youth care professional that requested your imaging first. Electronically signed by: Ana Paula Dale MD, [facility] ([phone]), at 07/20/2021 9:21 AM Clair Nair MD IMG DX ORDERABLES documented in this encounter Visit Diagnoses Diagnosis Closed displaced fracture of condyle of left femur with routine healing, subsequent encounter Closed displaced fracture of condyle of left femur with routine healing, subsequent encounter documented in this encounter Care Teams Drug Abuse Resistance Education Officer Relationship Specialty Start Date End Date Nathalie Franco APRN PCP - General Family Medicine 03/20/21 [address] [place] [address] documented as of this encounter
--- OUTSIDE RECORDS SUMMARY | 2022-01-19 00:41 | XMS_ITS | Encounter Summary ---
:1965 Author Organization [facility] [place] [address] Care Team Providers Name Role Phone Alysia Campbell APRN Primary Care Provider [phone] Reason for Visit Reason Comments Varicose Veins Consultation (Routine) - Specialty Diagnoses / Procedures Referred By Contact Refer red To Contact Vascular Surgery Diagnoses superficial thrombophlebitis Alysia Campbell [facility] Surg CIVIL CADD TECHNICIAN 3v [address] [place] [address] [place] [address] Phone: Referral ID Status Reason Start Date Expiration Date Visits V isits Requested Authorized [id number] Consult, 08/12/2017 08/12/2018 2 2 [facility] Encounter Details Date Type Department Care Team Description 10/08/2017 [facility] [place] ricose veins of left lower extremity with pain; [facility] [place] Bilateral inguinal hernia without obstru ction or gangrene, recurrence not specified [facility] [address] [place], [place] [phone] Social History Tobacco Use Types Packs/Day Years Used Date Former Smoker Smokeless Tobacco: Never Used Sex Assigned at Date Recorded Not on file documented as of this encounter Last Filed Vital Signs Vital Sign Reading Time Taken Comments Blood Pressure 133/77 10/08/2017 2:42 PM EDT Pulse 95 10/08/2017 2:41 PM EDT Temperature - - Respiratory Rate - - Oxygen Saturation - - Inhaled Oxygen Concentration - - Weight 95.3 kg (210 lb) 10/08/2017 2:41 PM EDT Height 179.1 cm (5' 10.5) 10/08/2017 2:41 PM EDT Body Mass Index 29.71 10/08/2017 2:41 PM EDT documented in this encounter Progress Notes Katlyn Vital PA - 10/08/2017 2:30 PM EDT VASCULAR SURGERY OUTPATIENT NOTE 51 yo male referred to Vascular Surgery for further evaluation and management of RLE varicose veins.Patient reports acute onset of RLE pain in June 2017 which prompted a trip to his local ED. Studies at that time were negative for DVT and he was treated for superficial thrombophelbitis. He reportspain with prolonged stationary positions (ie kneeling) with associated firmness and discomfort of the RLE. He denies pruritis, swelling or leg fatigue. PMHx: B/l inguinal hernias s/p repair H/o b/l spontaneous PTX BPH PSxHx: B/l IHR with mesh Family Hx: No family history on file. Social Hx: Social History Substance Use Topics ??? Smoking status: Former Smoker ??? Smokeless tobacco: Never Used ??? Alcohol use Not on file lives at [facility] Medications: Medications 10/08/17 1618 Medication Sig Taking? buPROPion (WELLBUTRIN SR) 100 mg Tablet Sustained Release 12 hr Take 100 mg by mouth 2 times daily. Yes simvastatin (ZOCOR) 40 mg Tablet Take 40 mg by mouth nightly. Yes terazosin (HYTRIN) 1 mg Capsule Take 1 mg by mouth nightly. Yes Allergies: No Known Allergies Review of Systems: Constitutional (weight change, fever) - Denies Neuro (dizziness, seizures, numbness, tingling) - Denies Eyes (vision) - Denies Ears, nose, throat (hearing) - Denies Cardiovascular (CP) - Denies Respiratory (SOB) - Denies GI (abd pain, nausea, emesis, blood in stool) - Denies (hematuria, dysuria, frequency) - Denies Muscoloskeletal (extremity pain, weakness) - RLE discomfort Skin (ulcers, rashes) - changes c/w venous insufficiency All other ROS negative Physical Exam: Vitals: Most Recent Vitals: 10/08/17 1442 BP: 133/77 Pulse: PainSc: NAD, pleasant male, younger appearing than stated age, resting comfortably in exam room chair Easily positions self for exam nonlabored breathing, RRR Firm nontender palpable cord along medial RIGHT thigh without overlaying skin changes or erythema, worsens with standing Smaller bulging varcosities RIGHT ankle and mid calf Feet pink and warm, palpable pulses, no open wounds/sores, motor and sensation intact A&Ox3, nonfocal Assessment/Plan: 51 yo male with symptomatic RLE varicose veins. Will write for dedicated thigh highcompression hose 20-30mmHg. Elevate legs. Avoid stable positions (ie kneeling, standing, sitting) for prolonged periods of time. Moisturize b/l LE. RTC 6-8 weeks for valve incompetence study and discussion of options for interventions. documented in this encounter Miscellaneous Notes Addendum Note - Katlyn Vital PA - 10/11/2017 9:36 AM EDT Addended by: KATLYN VITAL on: 10/11/2017 09:36 AM Modules accepted: Orders documented in this encounter Plan of Treatment Not on filedocumented as of this encounter Visit Diagnoses Diagnosis Varicose veins of left lower extremity w ith pain Varicose veins of lower extremities with other complications Bilateral inguinal hernia without obstru ction or gangrene, recurrence not specified documented in this encounter Care Teams Airport Control Operator Relationship Specialty Start Date End Date Alysia Campbell APRN PCP - General Family Medicine 08/09/17 03/19/21 [address] [place] [address] documented as of this encounter
--- OUTSIDE RECORDS SUMMARY | 2022-01-19 00:41 | XMS_ITS | Encounter Summary ---
:1965 Author Organization [facility] Address [address] [facility] [address] [place] [address] Care Team Providers Name Role Phone Nathalie Franco TAWANNA Primary Care Provider Encounter Details Date Type Department Care Team Description 04/13/2021 Hospital Encounter XRay [place] [facility] Kamron Woods, Closed displaced [address] [place] fracture of condyle [place], [place] [facility] of left femur, [phone] initial encounter [phone] ORTHOPAEDIC SURGERY [place] [id number] Social History Tobacco Use Types Packs/Day Years [...] nts XR KNEE AP & LAT Routine 04/13/2021 8:49 AM Closed displaced R esults for this LEFT EDT fracture of condyle procedur e are in of left femur, the results initial encounter section. documented in this encounter Results XR Knee [...] who have questions please contact the health day care aide that requested your imaging first. ? Electronically signed by: Tavo Varner MD , [facility] ([phone]), at 04/13/2021 9:18 AM Narrative 04/13/2021 9:18 [...] ho have questions please contact the health day care aide that requested your imaging first. Electronically signed by: Tavo Varner MD , [facility] ([phone]), at 04/13/2021 9:18 AM Kamron Woods MD IMG DX ORDERABLES documented in this encounter Visit Diagnoses Diagnosis Closed displaced fracture of condyle of left femur, initial encounter documented in this encounter Care Teams Shingles Roofer Relationship Specialty Start Date End Date Nathalie Franco APRN PCP - General Family Medicine 03/20/21 [address] [place] [address] documented as of this encounter
--- OUTSIDE RECORDS SUMMARY | 2022-01-19 00:41 | XMS_ITS | Encounter Summary ---
:1965 Author Organization [facility] Address [address] [facility] [place] [address] Care Team Providers Name Role Phone Nathalie Franco TAWANNA Primary Care Provider Reason for Visit Reason Comments Follow Up Surgery L ORIF femur lateral condyle fx DOS 03/24/21 DOI: 03/18/2021 Encounter Details Date Type Department Care Team Description 10/25/2021 Office Visit Orthopaedics at [facility] Kamron Woods MD Closed displaced [facility] fracture of condyle Drive [address] [place] [address] ORTHOPAEDIC routine healing, SURGERY subsequent encounter [place]ON [place] [address] Social History Tobacco Use Types Packs/Day Years Used Date Never Smoker Smokeless Tobacco: Never Used Alcohol Use Standard Drinks/Week Comments Yes 5 (1 standard drink = 0.6 oz pure alcoho l) Sex Assigned at Date Recorded Not on file documented as of this encounter Last Filed Vital Signs Vital Sign Reading Time Taken Comments Blood Pressure 138/79 10/25/2021 10:02 AM EDT Pulse 75 10/25/2021 10:02 AM EDT Temperature - - Respiratory Rate - - Oxygen Saturation - - Inhaled Oxygen Concentration - - Weight 104.3 kg (230 lb) 10/25/2021 10:02 AM EDT Height 177.8 cm (5' 10) 10/25/2021 10:02 AM EDT Body Mass Index 33 10/25/2021 10:02 AM EDT documented in this encounter Progress Notes Kamron Woods MD - 10/25/2021 10:00 AM EDT Orthopaedic Surgery Trauma [facility] Rodo Elizabeth returns for follow-up 7mo s/p left distal femur ORIF on 03/24/21. He reports he is doing very well. Since his last visit he has resumed all activities. His gait has improved. He no longer has a limp, and is not using any assistive devices. He has no pain. His only complaint is some slight weakness around the knee that is improving with home exercises. He reports having ~90% of a normal left knee. He has no other complaints today, and has a negative review of systems. [facility] FollowUp 07/20/2021 Health in general Good Quality of life Very Good Physical health Good Mental health Good Satisfaction with social activities Good Ability to carry out physical activities Moderately Rate of pain 2 Rate of fatigue Moderate Ability to carry out social activities Fair Bothered by emotional problems Often PROMIS PHYSICAL HEALTH SCORE 42.3 PROMIS MENTAL HEALTH SCORE 43.5 Gone to ER since knee surgery No [...] light touch is intact throughout. Knee ROM 0-130 full, compared to contralateral extremity. Evaluation of his gait shows a normal gait. Radiographs: 2 views of the left knee were obtained and reviewed. This demonstrates maintained alignment and reduction compared to prior radiographs. There are no changes in implant position or evidence of implant failure or loss of fixation. His fracture appears healed. There is maintained joint space without any radiographic progression of post traumatic arthritis. No other osseous abnormalities. Assessment and Plan: Rodo Elizabeth is a 55 y.o. male who returns for follow-up 7mo s/p surgery. He is doing well. He has healed his fractures. -Weight Bearing Status: Full WBAT LLE -Continue home exercises working on gait training, ROM, proprioception, and strengthening. -Follow-up PRN, if he has any worsening or new symptoms he will call to schedule an appt. This plan was discussed with the patient and he is in agreement. All of the patient's questions wereanswered. Kamron Woods MD Department of Orthopaedic Surgery 10/25/21 documented in this encounter Plan of Treatment Not on filedocumented as of this encounter Visit Diagnoses Diagnosis Closed displaced fracture of condyle of left femur with routine healing, subsequent encounter documented in this encounter Care Teams Research Director Relationship Specialty Start Date End Date Nathalie Franco APRN PCP - General Family Medicine 03/20/21 [address] [place] [address] documented as of this encounter
--- OUTSIDE RECORDS SUMMARY | 2022-01-19 00:41 | XMS_ITS | Encounter Summary ---
:1965 [place] [address] Care Team Providers Name Role Phone Alysia Campbell APRN Primary Care Provider [phone] Encounter Details Date Type Department Care Team Description 03/19/2021 [facility]illary [facility] [address] [place] [address] ORTHOPAEDIC SURGERY [phone] [place], [place] [address] (Wo rk) Social History Tobacco Use Types Packs/Day Years Used Date Former Smoker Smokeless Tobacco: Never Used Sex Assigned at Date Recorded Not on file documented as of this encounter Plan of Treatment Not on filedocumented as of this encounter Procedures Procedure Name Priority Date/Time Associated Diagnosis Comme nts FILM LIBRARY Routine 03/19/2021 3:02 PM Results f or this STORAGE ONLY CT EDT procedure ar e in KNEE the results section. documented in this encounter Results Film Library- Storage Only CT Knee (03/19/2021 3:02 PM EDT) Specimen (Source) Anatomical Location Collection Method / Collectio n Time Received Time / Laterality Volume Narrative RAD - 03/19/2021 3:02 PM EDT This exam is auto-finalizing. It's purpo se is for storage only. Afsaneh Miles MD [facility] FILM LIBRARY ORDERABLES Performing Organization Address City/State/ZIP Code Phon e Number RAD [place], [place] documented in this encounter Visit Diagnoses Not on filedocumented in this encounter Care Teams Counter Supply Worker Relationship Specialty Start Date End Date Alysia Campbell APRN PCP - General Family Medicine 08/09/17 03/19/21 [address] [place] [address] documented as of this encounter
--- OUTSIDE RECORDS SUMMARY | 2022-01-19 00:41 | XMS_ITS | Encounter Summary ---
:1965 Author Organization [facility] Address [place] [address] Care Team Providers Name Role Phone Nathalie Franco TAWANNA Primary Care Provider Encounter Details Date Type Department Care Team Description 05/22/2021 Hospital Encounter XRay at [facility] Kamron Woods, Closed displaced [address] MANZANARES fracture of condyle [place], [place] [facility] of left femur w [facility] [address] routine healing, ORTHOPAEDIC subsequent enco unter SURGERY [place] [id number] Social History Tobacco Use Types Packs/Day Years Used Date Never Smoker Smokeless Tobacco: Never Used Alcohol Use Standard Drinks/Week Comments Yes 5 (1 standard drink = 0.6 oz pure alcoho l) Sex Assigned at Date Recorded Not on file documented as of this encounter Medications at Time of Discharge Medication Sig Dispensed Refills Start Date End Date acetaminophen (Tylenol) Take 1,000 mg by 0 [...] nts XR KNEE AP & LAT Routine 05/22/2021 8:44 AM Closed displaced R esults for this LEFT EST fracture of condyle procedur e are in of left femur with the resul ts routine healing, section. subsequent encounter documented in this encounter Results XR Knee 1-2 Views Left (Generic) (05/22/2021 8:44 AM EST) Anatomical Region Laterality Modality Knee Left Digital Radiography Specimen (Source) Anatomical Location Collection Method / Collectio n Time Received Time / Laterality Volume Impressions 05/22/2021 9:41 AM EST No interval change in osseous or hardware alignment. No evidence of hardware complication. Thank you for letting us participate in the care of this patient. ??If you are a health care provider and have any questi ons regarding this report, please contact the number below. ??For patients who have questions please contact the health healthcare account manager that requested your imaging first. ? Narrative 05/22/2021 9:41 AM EST EXAMINATION: XR KNEE 1-2 VIEWS LEFT (GENERIC) CLINICAL HISTORY: Left femoral condyle f racture s/p ORIF TECHNIQUE: 2 views LEFT knee COMPARISON: Left knee radiographs 04/13/2021 FINDINGS: As before, the patient is status post la teral plate and screw fixation of the lateral femoral condyle. The fixation yin rdware is unchanged in alignment and appearance. No new lucency adjacent to t he hardware components. There is some increasing bone callus along the lateral femoral condyle. Osseous alignment is unchanged. No remarkable suprapatellar knee joint e ffusion. Procedure Note Felipe Jain MD - 05/22/2021Formattin g of this note might be different from the original. EXAMINATION: XR KNEE 1-2 VIEWS LEFT (GEN SANDY) CLINICAL HISTORY: Left femoral condyle f racture s/p ORIF TECHNIQUE: 2 views LEFT knee COMPARISON: Left knee radiographs 04/13/2021 FINDINGS: As before, the patient is status post la teral plate and screw fixation of the lateral femoral condyle. The fixation yin rdware is unchanged in alignment and appearance. No new lucency adjacent to t he hardware components. There is some increasing bone callus along the lateral femoral condyle. Osseous alignment is unchanged. No remarkable suprapatellar knee joint e ffusion. IMPRESSION No interval change in osseous or hardwar e alignment. No evidence of hardware complication. Thank you for letting us participate in the care of this patient. If you are a health care provider and have any questi ons regarding this report, please contact the number below. For patients w ho have questions please contact the health healthcare account manager that requested your imaging first. Kamron Woods MD IMG DX ORDERABLES documented in this encounter Visit Diagnoses Diagnosis Closed displaced fracture of condyle of left femur with routine healing, subsequent encounter documented in this encounter Care Teams Sky Cap Relationship Specialty Start Date End Date Nathalie Franco APRN PCP - General Family Medicine 03/20/21 [address] [place] [address] documented as of this encounter
--- OUTSIDE RECORDS SUMMARY | 2022-01-19 00:41 | XMS_ITS | Encounter Summary ---
:1965 Author Organization [place] [address] Care Team Providers Name Role Phone Nathalie Franco TAWANNA Primary Care Provider Reason for Visit Reason Onset Date Comments Bumped Appointment 09/25/2021 Encounter Details Date Type Department Care Team Description 09/25/2021 Telephone Orthopaedics at [facility] Kamron Woods [place] [address] [address] [address] [phone] ORTHOPAEDIC SURG [place], [place] 0375 (Wo rk) Social History Tobacco Use Types Packs/Day Years Used Date Never Smoker Smokeless Tobacco: Never Used Alcohol Use Standard Drinks/Week Comments Yes 5 (1 standard drink = 0.6 oz pure alcoho l) Sex Assigned at Date Recorded Not on file documented as of this encounter Miscellaneous Notes Telephone Encounter - Karissa Ray - 09/26/2021 10:57 AM EDT Pt rescheduled. Telephone Encounter - Monet Ambriz - 09/25/2021 11:32 AM EDT LM#1 to reschedule bumped appointment with Dr. Woods scheduled on 10/05/21. Please reschedule to A different day. documented in this encounter Plan of Treatment Not on filedocumented as of this encounter Visit Diagnoses Not on filedocumented in this encounter Care Teams Radio Intelligence Operator Relationship Specialty Start Date End Date Nathalie Franco APRN PCP - General Family Medicine 03/20/21 [address] [place] [address] documented as of this encounter
--- OUTSIDE RECORDS SUMMARY | 2022-01-19 00:41 | XMS_ITS | Encounter Summary ---
:1965 Author Organization [facility] [place] [address] Care Team Providers Name Role Phone Nathalie Franco APRN Primary Care Provider Reason for Referral Physical Therapy (Routine) - Closed Specialty Diagnoses / Procedures Referred By Contact Refer red To Contact Physical Therapy Diagnoses Closed displaced fracture of condyle of left femur with routine healing, subsequent encounter Suzan Marcus PA [facility] [place] [address] Referral ID Status Reason Start Date Expiration Date Visits V isits Requested Authorized [id number] Closed Evaluate and 04/13/2021 10/10/2021 1 1 Treat Reason for Visit Reason Comments Follow Up Surgery s/p ORIF L lateral femoral c ondyle fx DOS 03/24/2021, DOI 03/18/2021 Consultation (Urgent) - Authorized Specialty Diagnoses / Procedures Referred By Contact Refer red To Contact Orthopaedics Diagnoses Left Lateral femoral condyle fx Doi 03/19/2021 Tal Turner, [facility] [address] [place] [address] [place] [address] Referral ID Status Reason Start Expiration Visits Visits Date Date Requested Authorized [id number] Authorized Consult, 03/20/2021 03/20/2022 6 6 [facility] PCP Updated and/or Approved Encounter Details Date Type Department Care Team Description 04/13/2021 Office Visit Orthopaedics at [facility] Suzan aMrcus, Closed displaced [facility] fracture of condyle [address] [facility] of left femur with JOON Reyez [id number] yandel stephenson, ORTHOPAEDIC subsequent enco unter SURGERY JOON REYEZ [address] Social History Tobacco Use Types Packs/Day Years Used Date Never Smoker Smokeless Tobacco: Never Used Alcohol Use Standard Drinks/Week Comments Yes 5 (1 standard drink = 0.6 oz pure alcoho l) Sex Assigned at Date Recorded Not on file documented as of this encounter Last Filed Vital Signs Vital Sign Reading Time Taken Comments Blood Pressure 141/79 04/13/2021 8:54 AM EDT Pulse 78 04/13/2021 8:54 AM EDT Temperature - - Respiratory Rate - - Oxygen Saturation - - Inhaled Oxygen Concentration - - Weight 104.3 kg (230 lb) 04/13/2021 8:54 AM EDT copied Height 177.8 cm (5' 10) 04/13/2021 8:54 AM EDT Body Mass Index 33 04/13/2021 8:54 AM EDT documented in this encounter Progress Notes Suzan Marcus, ELISE - 04/13/2021 9:30 AM EDT PATIENT NAME: Rodo Elizabeth AGE: 55 y.o. MR#: [id number] DATE OF VISIT: 04/13/2021 SURGERY: Left lateral femoral condyle ORIF DOS 03/24/21 (Dr. Woods) CHIEF COMPLAINT: 3 weeks s/p left femoral condyle ORIF HISTORY OF PRESENT ILLNESS: Mr. Elizabeth is a 55 y.o. male who comes into clinic today for evaluation of the left leg. The patient has a history significant for a twisting fall with immediate left knee pain for which he presents to [facility] where he was found to have a left lateral femoral condyle fracture on CT now s/p ORIF. The patient reports minimal pain in his knee. He reports improving swelling in his knee. He takes Tylenol PRN for pain. He has missed several Lovenox doses. Medications and Allergies were reviewed in eD-H PAST MEDICAL HX: No past medical history on file. PAST SURGICAL HX: Past Surgical History: Procedure Laterality Date ??? PRO OPEN TX FEMORAL FRACTURE DISTAL MED/LAT CONDYLE Left 03/24/2021 ORIF DISTAL FEMUR, MEDIAL OR LATERAL CONDYLE (WRVU 14.6) performed by Kamron Woods MD at [facility] OR FAMILY HX: No family history on file. SOCIAL HX: Social History Occupational History ??? Not on file Tobacco Use ??? Smoking status: Never Smoker ??? Smokeless tobacco: Never Used Vaping Use ??? Vaping Use: Never used Substance and Sexual Activity ??? Alcohol use: Yes Alcohol/week: 5.0 standard drinks Types: 5 Cans of beer per week ??? Drug use: Not Currently ??? Sexual activity: Not on file Ambulatory aids: wheelchair ROS: Constitutional: Denies fevers, chills Respiratory: Denies shortness of breath, cough Cardiac: Denies chest pain, palpitations GI: denies abdominal pain, nausea, vomiting Skin: Denies new rashes or lesions Neuro: no numbness, tingling Musculoskeletal: as above in HPI General Health, Prior Treatments, PreExisting Condition, Health Habits, About You 03/23/2021 PROMIS-10 General Health Good PROMIS-10 Quality of Life Very Good PROMIS-10 Physical Health Good PROMIS-10 Mental Health Good PROMIS-10 Social Activity Fair PROMIS-10 Everyday Activities A little PROMIS-10 Pain 6 PROMIS-10 Fatigue Moderate PROMIS-10 Social Roles Very Good PROMIS-10 Anxious or Depressed Sometimes PROMIS PHYSICAL SCORE (range 16-68) 37.4 PROMIS MENTAL SCORE (range 21-68) 43.5 Treatments Tried Heat and ice therapy, Brace, Walking aids (e.g.cane, walker), Acetaminophen (e.g. Tylenol), Over the counter anti-inflammatory drugs (e.g Advil, Aspirin, Aleve), Narcotics/opiods (Percocet, codeine, hydrocodone) Alzheimers or dementia No Cirrohosis or liver disease No HIV/AIDS No Pain in more than one joint in legs No Back or neck pain No Heart attack No Heart failure No Unclog/bypass leg arteries No Stroke, blood clot, TIA No Asthma No Emphysema, chronic bronchities, or COPD No Stomach ulcers/peptic ulcer disease No Diabetes No Poor kidney function No Rheumatic condtions No Cancer No Weight (lbs) 230 Height (feet) 5 feet Height (Inches) 10 BMI 32.99 (Obese) Ever used tobacco products Yes Tobacco frequency Never WHO - Tobacco Advice 0 (You are at low risk of health and other problems from your current pattern of use.) Ever used alcoholic beverages Yes Alcohol frequency Daily or almost daily WHO - Alcohol Advice 6 (You are at risk of health and other problems from your current pattern of alcohol use.) Live Alone No Marital situation / Schooling 4 - year college Combined Household Income $10,000 to less than $15,000 # People Supported 1 Turkmen, , No, not Turkmen// Race White Health Literacy Extremely Currently working Yes Current job situation Full-time Employment status before injury Currently working Returned to previous employment No Spending time in inpatient rehab facility No Rate overall condition today 6 PHYSICAL EXAM: Mr. Elizabeth is a 55 y.o. male General appearance: in no acute distress, alert, cooperative Psych: cooperative with exam, appropriate Head: normocephalic, atraumatic EENT: EOMI grossly intact Neck: supple, trachea midline Cardiac: regular rate and rhythm by peripheral pulse Lungs: non-labored respirations Musculoskeletal: LLE ??? Inspection: Mild knee edema. Well healing incisions with sutures CDI without erythema or drainage. ??? ROM: Full ankle ROM. Knee lacking 30 degrees of extension. Knee flexion ??? Neurovascular: SGILT DP/SP/T/Fischer/Sa, EHL/FHL/GS/TA/per fires, 2+ DP pulse DIAGNOSTIC STUDIES: Left knee XR were personally reviewed and demonstrate preserved alignment of thedistal femoral condyles without displacement. Hardware in correct position without evidence of failure. ASSESSMENT: 3 weeks s/p left femoral condyle ORIF PLAN: - Sutures removed without issue and replaced with steri-strips. - PT: NWB LLE in unlocked hinged knee brace - Provided walker today as well as walker training with Tomasa Whipple, PT - Anticoag: Lovenox QD x30 days then ASA 81mg BID until baseline activity - Pain management: Tylenol PRN - He will return for follow up in 5 weeks with left knee XR . - The patient understands to contact us if they have any other questions or concerns. Suzan Marcus PA-C Department of Orthopaedics [facility] Pager: documented in this encounter Plan of Treatment Scheduled Referrals Name Type Priority Associated Diagnoses Order S chedule Referral to Outpatient Referral Routine Closed displaced Orde red: Physical Therapy fracture of condyle 03/25 of left femur with routine healing, subsequent encounter documented as of this encounter Results XR Knee 1-2 Views [...] who have questions please contact the health childcare teacher that requested your imaging first. ? Narrative [...] ho have questions please contact the health childcare teacher that requested your imaging first. Kamron Woods MD IMG DX ORDERABLES documented in this encounter Visit Diagnoses Diagnosis Closed displaced fracture of condyle of left femur with routine healing, subsequent encounter Closed displaced fracture of condyle of left femur with routine healing, subsequent encounter documented in this encounter Care Teams Behavioral Health Assistant Relationship Specialty Start Date End Date Nathalie Franco APRN PCP - General Family Medicine 03/20/21 [address] [place] [address] documented as of this encounter
--- OUTSIDE RECORDS SUMMARY | 2022-01-19 00:41 | XMS_ITS | Encounter Summary ---
:1965 Author Organization [facility] [place] [address] Care Team Providers Name Role Phone Nathalie [...] Expiration Date Visits Requ ested Visits Authorized [id number] 1 1 Encounter Details Date Type Department Care Team Description 03/24/2021 Hospital Encounter Same Day Program at Kamron Woods, Closed displaced Dennise Martinez MD fracture of [facility] of left femur, [facility] DR[address] initial encounter Drive ORTHOPAEDIC [place], [place] SURGERY [address] [place], [place] [phone] [facility] Social History Tobacco Use Types Packs/Day Years Used Date Never Smoker Smokeless Tobacco: Never Used Alcohol Use Standard Drinks/Week Comments Yes 5 (1 standard drink = 0.6 oz pure alcoho l) Sex Assigned at Date Recorded Not on file documented as of this encounter Last Filed Vital Signs Vital Sign Reading Time Taken Comments Blood Pressure 182/106 03/24/2021 4:00 PM EDT Pulse 73 03/24/2021 7:34 AM EDT Temperature 36.9 ??C (98.4 ??F) 03/24/2021 12:41 PM EDT Respiratory Rate 18 03/24/2021 4:00 PM EDT Oxygen Saturation 95% 03/24/2021 4:00 PM EDT Inhaled Oxygen Concentration - - Weight [...] bowel movement. You can also take an qepc-alt-gdkddcg medication, Miralax if needed to combat constipation. [...] a dry sterile dressing. Call your doctor ([phone]) if you develop: 1. Fever greater than 100.5 2. Severe nausea or vomiting 3. Increasing pain that is not controlled by pain medications 4. Increasing redness, swelling, or drainage from incisions 5. Change in sensation FOLLOW-UP APPOINTMENTS: 1. You will have follow-up appointments at [facility] as indicated in Future Appointment and Orders. [...] appointment within the next 1-2 days. Please [phone] if you do not hear about an [...] fixation. Joseluis Acosta MD Orthopaedic Surgery Pager: [phone] Associated attestation - Kamron Woods MD - [...] Woods MD - 03/24/2021 9:12 AM EDT [facility] Operative Note Patient Name: Rodo Elizabeth : [id number] MR#: [id number] Case Date: 03/24/2021 Surgeon: Surgeon(s) and Role: [...] The patient was evaluated in the the [facility] emergencyroom and was found to have [...] incised in line with theincision down to Nain's tubercle. An arthrotomy was made in the [...] who have questions please contact the health director of managed care that requested your imaging first. ? Narrative 04/13/2021 9:18 AM EDT EXAMINATION: XR [...] ho have questions please contact the health director of managed care that requested your imaging first. Kamron Woods MD IMG DX ORDERABLES XR [...] who have questions please contact the health director of managed care that requested your imaging first. ? Narrative 03/24/2021 1:38 PM EDT EXAMINATION: XR [...] ho have questions please contact the health director of managed care that requested your imaging first. Kamron Woods MD IM DX ORDERABLES XR Fluoro No Rad <1Hr - OR Use (03/24/2021 11:57 AM EDT) Specimen (Source) Anatomical Location Collection Method / Collectio n Time Received Time / Laterality Volume Narrative Dicom, Auditing User - 03/24/2021 1:03 P M EDT This exam is auto-finalizing. No interpr etation was done. Kamron Woods MD IMG FLUORO ORDERABLES documented in this encounter Visit Diagnoses Diagnosis Closed displaced fracture of condyle of left femur, initial encounter Closed displaced fracture of condyle of left femur, initial encounter documented in this encounter Administered Medications Inactive Administered [...] 5 mg (COMPLETED) 1323 (Given - Provider: Barbra Hector RN) 5 mg, Oral, ONCE, 1 dose, On Sat03/24/21 at 1315, Routine PRN Medication Order 03/22/2021 03/23/2021 03/24/2021 HYDROmorphone (Dilaudid) (0.2 mg/1 mL) injection syringe 0.2 mg (CANCELED) 1247 (See Alternative - Provider: Lizet Jeffers RN)1304 (See Alternative - Provider: Lizet Jeffers RN)1347 (Given - Provider: Barbra Hector RN)1437 (Given - Provider: Lizet Jeffers RN) 0.2 [...] Routine documented in this encounter Care Teams Psychiatric Therapist Relationship Specialty Start Date End Date Nathalie Franco APRN PCP - General Family Medicine 03/20/21 [address] [place] [address] documented as of this encounter
--- OUTSIDE RECORDS SUMMARY | 2022-01-19 00:41 | XMS_ITS | Encounter Summary ---
:1965 Author Organization [facility] Address [address] [place] [address] Care Team Providers Name Role Phone Salvador Nathalie TAWANNA Primary Care Provider Encounter Details Date Type Department Care Team Description 10/25/2021 Hospital Encounter XRay at [facility] Kamron Woods, Closed displaced [address] [place]ES fracture of condyle [place], [place] [facility] of left femur w [facility] [address] routine healing, ORTHOPAEDIC [place] [address] Social History Tobacco Use Types Packs/Day Years [...] 06/08/2021 Capsule MOUTH EVERY DAY acetaminophen (Tylenol) 500 Take 1,000 mg by 0 mg Tablet mouth 3 times daily. buPROPion XL (Wellbutrin Take 300 mg by mouth 0 XL) 300 mg Tablet Extended daily. Release 24 hr simvastatin (ZOCOR) 40 mg Take 40 mg by mouth 0 Tablet daily. sertraline (Zoloft) 50 mg Take 50 mg by mouth 0 0 10/11/2021 Tablet daily. ibuprofen (Advil) 800 mg Take 800 mg by mouth 0 Tablet 3 times daily (with meals). documented as of this encounter Plan of Treatment Not on filedocumented as of this encounter Procedures Procedure Name Priority Date/Time Associated Diagnosis Comme nts XR KNEE AP & LAT Routine 10/25/2021 9:12 AM Closed displaced R esults for this LEFT EDT fracture of condyle procedur e are in of left femur with the resul ts routine healing, section. subsequent encounter documented in this encounter Results XR Knee 1-2 Views Left (Generic) (10/25/2021 9:12 AM EDT) Anatomical Region Laterality Modality Knee Left Digital Radiography Specimen (Source) Anatomical Location Collection Method / Collectio n Time Received Time / Laterality Volume Impressions 10/25/2021 10:09 AM EDT Continued healing of lateral femoral condyle fracture status post ORIF. No hardware complication. Unchanged narrowi ng of the lateral compartment joint space. Thank you for letting us participate in the care of this patient. ??If you are a health care provider and have any questi ons regarding this report, please contact the number below. ??For patients who have questions please contact the health home health care physician that requested your imaging first. ? Electronically signed by: Eloina Easton, [facility] ([phone]), at 10/25/2021 10:09 AM Narrative 10/25/2021 10:09 AM EDT EXAMINATION: XR KNEE 1-2 VIEWS LEFT (GENERIC) CLINICAL HISTORY: s/p left distal femur ORIF TECHNIQUE: AP and lateral views of the left knee. COMPARISON: Left knee radiograph 07/20/[address] of the left knee 03/19/2021. FINDINGS: Postoperative changes status post ORIF o f lateral femoral condyle fracture. Accounting for differences in patient po sitioning and technique, the intact hardware is unchanged in configuration. There are no lucencies around the hardware. There is no screw backout. No focal soft tissue swelling. No knee j oint effusion. No new fracture. The fracture lucencies are no longer wel l-visualized by radiograph. Mild narrowing of the lateral compartmen t joint space, unchanged. Procedure Note Erlinda Cueva MD - 10/25/2021Formattin g of this note might be different from the original. EXAMINATION: XR KNEE 1-2 VIEWS LEFT (GEN SANDY) CLINICAL HISTORY: s/p left distal femur ORIF TECHNIQUE: AP and lateral views of the left knee. COMPARISON: Left knee radiograph 07/20/[address] of the left knee 03/19/2021. FINDINGS: Postoperative changes status post ORIF o f lateral femoral condyle fracture. Accounting for differences in patient po sitioning and technique, the intact hardware is unchanged in configuration. There are no lucencies around the hardware. There is no screw backout. No focal soft tissue swelling. No knee j oint effusion. No new fracture. The fracture lucencies are no longer wel l-visualized by radiograph. Mild narrowing of the lateral compartmen t joint space, unchanged. IMPRESSION Continued healing of lateral femoral con dyle fracture status post ORIF. No hardware complication. Unchanged narrowi ng of the lateral compartment joint space. Thank you for letting us participate in the care of this patient. If you are a health care provider and have any questi ons regarding this report, please contact the number below. For patients w ho have questions please contact the health home health care physician that requested your imaging first. Electronically signed by: Eloina Easton, [facility] ([phone]), at 10/25/2021 10:09 AM Kamron Woods MD IMG DX ORDERABLES documented in this encounter Visit Diagnoses Diagnosis Closed displaced fracture of condyle of left femur with routine healing, subsequent encounter documented in this encounter Care Teams Meat Seafood Associate Relationship Specialty Start Date End Date Nathalie Franco APRN PCP - General Family Medicine 03/20/21 [address] [place] [address] documented as of this encounter
--- OUTSIDE RECORDS SUMMARY | 2022-01-19 00:41 | XMS_ITS | Encounter Summary ---
:1965 Author Organization [facility] [place] [address] Care Team Providers Name Role Phone Nathalie Franco TAWANNA Primary Care Provider Reason for Referral Diagnostic Test (Emergency) - Closed Specialty Diagnoses / Procedures Referred By Contact Refer red To Contact Radiology Diagnoses Closed fracture of distal end of left femur, unspecified fracture morphology, initial encounter Kamron Woods MD [facility] Rad Ct Scan Procedures CT 3D Reconstructed Images for Surgical Planning [facility] [place] [address] [place] [address] Referral ID Status Reason Start Date Expiration Date Visits V isits Requested Authorized [id number] Closed Specialty 03/23/2021 09/20/2022 1 1 Service Requested Reason for Visit Reason Comments Left Knee Pain Left lateral femoral condyle fracture DOI 03/18/21 Consultation (Urgent) - Authorized Specialty Diagnoses / Procedures Referred By Contact Refer red To Contact Orthopaedics Diagnoses Left Lateral femoral condyle fx Doi 03/19/2021 Tal Turner, [facility] [address] [place] [address] [place] [address] Referral ID Status Reason Start Expiration Visits Visits Date Date Requested Authorized [id number] Authorized Consult, 03/20/2021 03/20/2022 6 6 [facility] PCP Updated and/or Approved Encounter Details Date Type Department Care Team Description 03/23/2021 Office Visit Orthopaedics at [facility] Kamron Woods MD Closed [facility] distal en d of left Drive [address] femur, unspecified JOON Reyez [phone] ORTHOPAEDIC fracture morphology, SURGERY initial encounter JOON REYEZ [id number] Social History Tobacco Use Types Packs/Day Years Used Date Former Smoker Smokeless Tobacco: Never Used Sex Assigned at Date Recorded Not on file documented as of this encounter Last Filed Vital Signs Vital Sign Reading Time Taken Comments Blood Pressure 151/99 03/23/2021 11:02 AM EDT Pulse 77 03/23/2021 11:02 AM EDT Temperature - - Respiratory Rate - - Oxygen Saturation - - Inhaled Oxygen Concentration - - Weight 104.3 kg (230 lb) 03/23/2021 11:02 AM EDT Height 177.8 cm (5' 10) 03/23/2021 11:02 AM EDT Body Mass Index 33 03/23/2021 11:02 AM EDT documented in this encounter H&P Notes Kamron Woods MD - 03/23/2021 11:00 AM EDT Orthopedic Trauma History and Physical Chief complaint: left knee pain History of present illness: Rodo Elizabeth is a 55 y.o. year-old male who fell awkwardly on his left leg sustaining a left knee injury on 03/18/21. He was in the vaca working on a cabin when something startled him and he twisted and fell awkwardly on his left leg. He had immediate left knee pain. Hewas evaluated in the [facility] emergency room and found to have on CT scan a left distal femur lateral condyle fracture. He was treated with a knee immobilizer and made nonweight bearing. He has been ambulating with a crutches. His pain has been controlled. He has no othercomplaints today and a negative review of systems. Past medical history: Patient Active Problem List Diagnosis Date Noted ??? Closed fracture of condyle of left femur 03/19/2021 ??? Pneumothorax, spontaneous, tension 10/08/2017 ??? Bilateral inguinal hernia 10/08/2017 ??? BPH (benign prostatic hyperplasia) 10/08/2017 Medications: ??? ibuprofen (Advil) 800 mg Tablet ??? acetaminophen (Tylenol) 500 mg Tablet ??? buPROPion (WELLBUTRIN SR) 100 mg Tablet Sustained Release 12 hr ??? simvastatin (ZOCOR) 40 mg Tablet ??? terazosin (HYTRIN) 1 mg Capsule Allergies: No Known Allergies Social history: Social History Tobacco Use ??? Smoking status: Former Smoker ??? Smokeless tobacco: Never Used Substance Use Topics ??? Alcohol use: Not on file Review of systems: No chest pain or shortness of breath No fevers, night sweats or chills Vital signs: Patient Vitals for the past 24 hrs: Pulse BP 03/23/21 1102 77 (!) 151/99 Physical Exam: Patient Vitals for the past 24 hrs: Pulse BP 03/23/21 1102 77 (!) 151/99 Constitutional: AOx3, NAD Eyes: EOMI Cardiovascular: RRR, no murmurs Respiratory: CTAB, no wheezes Hem/Lymph/Immuno: no evidence of bruising GI: soft NT/ND nl BS Musculoskeletal: RLE: Skin is intact. No swelling or erythema. Full painless ROM hip/knee/ankle. Motor intact to hip flexion/quad/ham/TA/GS/EHL. Sensation intact to DP/SP/T/saphenous/sural nerve nerve distributions. 2+DP pulse. Foot is warm and well perfused. LLE: In a knee immobilizer which was removed. Skin is intact. Min to moderate swelling around the knee. Full painless ROM hip and ankle. Motor intact to hip flexion/quad/ham/TA/GS/EHL. Sensation intactto DP/SP/T/saphenous/sural nerve nerve distributions. 2+ DP pulse. Foot is warm and well perfused. Imaging: Personal review of the patient's imaging reveals: CT scan of the left knee from [facility] dated 03/19/2021 was reviewed. This showed a fracture of the left distal femur lateral condyle. Its a partial articular fracture in the sagittal plan involving the epicondyle, as well as a fracture line in the coronal plan of the posterior condyle indicating a Hoffa fragment. No other osseous abnormalities. Assessment: 55 y.o. year-old male with a left distal femur lateral condyle fracture. Plan: We had a long discussion regarding the nature of his injury. He has a displaced articular fracture of his left distal femur lateral condyle. We discussed his treatment options including operative and nonoperative options. Nonoperative being treatment in a splint/brace. Operative being open reduction internal fixation. Benefits of ORIF would be improved reduction of the articular surface to reduce progression of post traumatic arthritis, preventing further displacement, and having more reliable recovery outcome. Risks include but are not limited to pain, infection, bleeding, damage to surrounding tissue, need for further surgery, malunion, nonunion, failure to heal, deep vein thrombosis, pulmonary embolism, and . The patient understood his options and would like to proceed with surgical repair. His H&P and consent were filled in the clinic today. He will remain nonweightbearing to his left lower extremity in his knee immobilizer. Follow up: Outpatient surgery, 03/24/2021 This plan was discussed with the patient and they are in agreement. All of the patient's questions were answered. Kamron Woods MD The above dictation was made with voice recogonition software documented in this encounter Plan of Treatment Not on filedocumented as of this encounter Results CT 3D Reconstructed Images for Surgical Planning (03/23/2021 1:44 PM EDT) Specimen (Source) Anatomical Location Collection Method / Collectio n Time Received Time / Laterality Volume Narrative [facility] - 03/23/2021 1:44 PM EDT This exam is auto-finalizing. No interpr etation was done. Kamron Woods MD IMG CT ORDERABLES Performing Organization Address City/State/ZIP Code Phon e Number [place], [place] documented in this encounter Visit Diagnoses Diagnosis Closed fracture of distal end of left fe mur, unspecified fracture morphology, initial encounter Closed fracture of distal end of left fe mur, unspecified fracture morphology, initial encounter documented in this encounter Care Teams Lithographers Printer Relationship Specialty Start Date End Date Nathalie Franco APRN PCP - General Family Medicine 03/20/21 [address] [place] [address] documented as of this encounter
--- OUTSIDE RECORDS SUMMARY | 2022-01-19 00:41 | XMS_ITS | Encounter Summary ---
:1965 Author Organization [facility] [place] [address] Care Team Providers Name Role Phone Nathalie Franco APRN Primary Care Provider Reason for Referral Diagnostic Test (Emergency) - Closed Specialty Diagnoses / Procedures Referred By Contact Refer red To Contact Radiology Diagnoses Closed fracture of distal end of left femur, unspecified fracture morphology, initial encounter Kamron Woods MD [facility] Rad Ct Scan Procedures CT 3D Reconstructed Images for Surgical Planning [facility] [place] [address] [place] [address] Referral ID Status Reason Start Date Expiration Date Visits V isits Requested Authorized [id number] Closed Specialty 03/23/2021 09/20/2022 1 1 Service Requested Reason for Visit Diagnostic Test (Emergency) - Closed Specialty Diagnoses / Procedures Referred By Contact Refer red To Contact Radiology Diagnoses Closed fracture of distal end of left femur, unspecified fracture morphology, initial encounter Kamron Woods MD [facility] Rad Ct Scan Procedures CT 3D Reconstructed Images for Surgical Planning [facility] [place] [address] [place] [address] Referral ID Status Reason Start Date Expiration Date Visits V isits Requested Authorized [id number] Closed Specialty 03/23/2021 09/20/2022 1 1 Service Requested Encounter Details Date Type Department Care Team Description 03/23/[address] Scan at [facility] [place] Woods, Kamron, Closed fracture of [facility] distal end of left Drive [facility] femur, unspecified [place], [place] [address] fracture morphology, [phone] ORTHOPAEDIC initial encounter [phone] SURGERY [place] [id number] Social History Tobacco Use Types Packs/Day Years [...] encounter Procedures Procedure Name Priority Date/Time Associated Comments Diagnosis CT 3D RECONSTRUCTED STAT 03/23/2021 1:44 PM Closed fracture of Results for this IMAGES FOR SURGICAL EDT distal end of left pr ocedure are in PLANNING femur, unspecified the resul ts fracture section. morphology, initial encounter documented in this encounter Results CT 3D Reconstructed Images for Surgical Planning (03/23/2021 1:44 PM EDT) Specimen (Source) Anatomical Location Collection Method / Collectio n Time Received Time / Laterality Volume Narrative [facility] 3] - 03/23/2021 1:44 PM EDT This exam is auto-finalizing. No interpr etation was done. Kamron Woods MD IMG CT ORDERABLES Performing Organization Address City/State/ZIP Code Phon e Number [facility] [place], [place] documented in this encounter Visit Diagnoses Diagnosis Closed fracture of distal end of left fe mur, unspecified fracture morphology, initial encounter documented in this encounter Care Teams Water Vessel Captain Relationship Specialty Start Date End Date Nathalie Franco APRN PCP - General Family Medicine 03/20/21 [address] [place] [address] documented as of this encounter
--- OUTSIDE RECORDS SUMMARY | 2022-01-19 00:41 | XMS_ITS | Encounter Summary ---
:1965 Author Organization [facility] Address [address] [place] [address] Care Team Providers Name Role Phone Nathalie Franco TAWANNA Primary Care Provider Reason for Visit Reason Comments Follow-up L ORIF femur lateral condyle fx DOS 03/24/21// DOI: 03/18/2021 (JOANIE) Encounter Details Date Type Department Care Team Description 07/20/2021 Office Visit Orth[place]ed[place] [facility]ron Woods MD Closed displaced [facility] fracture of condyle [address] [place] [address] ORTHOPAEDIC routine healing, SURGERY subsequent encounter [place] [address] Social History Tobacco Use Types Packs/Day Years Used Date Never Smoker Smokeless Tobacco: Never Used Alcohol Use Standard Drinks/Week Comments Yes 5 (1 standard drink = 0.6 oz pure alcoho l) Sex Assigned at Date Recorded Not on file documented as of this encounter Last Filed Vital Signs Vital Sign Reading Time Taken Comments Blood Pressure 136/81 07/20/2021 8:47 AM EST Pulse 80 07/20/2021 8:47 AM EST Temperature - - Respiratory Rate - - Oxygen Saturation - - Inhaled Oxygen Concentration - - Weight 104.3 kg (230 lb) 07/20/2021 8:47 AM EST Height 177.8 cm (5' 10) 07/20/2021 8:47 AM EST Body Mass Index 33 07/20/2021 8:47 AM EST documented in this encounter Progress Notes Kamron Woods MD - 07/20/2021 9:00 AM EST Orthopaedic Surgery Trauma Clinic Rodo Elizabeth returns for follow-up 4mo s/p left distal femur ORIF on 03/24/21. He reports he is doing well. He has 1-2/10 pain every once and while, typically with terminal flexion. He has been fullweight bearing, uses a cane when out of the house. He has been doing PT 2x week working on gait training and ROM. He is pleased with his result and his progress so far. He has no other complaints today, and has a negative review of systems. [facility] FollowUp 05/22/2021 Health in general Good Quality [...] light touch is intact throughout. Knee ROM 0-120. Evaluation of his gait shows an antalgic gait favoring his right leg. Radiographs: 2 views of the left knee were obtained and reviewed. This demonstrates maintained alignment and reduction compared to prior radiographs. There are no changes in implant position or evidence of implant failure or loss of fixation. His fracture appears healed. 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 No other osseous abnormalities. Assessment and Plan: Rodo Elizabeth is a 55 y.o. male who returns for follow-up 4mo s/p surgery. He is doing well. He has healed his fractures. He still has an antalgic gait for which he will continue working with PT. -Weight Bearing Status: Full WBAT LLE -Continue PT working on gait training, ROM, proprioception, and strengthening. -Follow-up in 8-12 weeks for clinical evaluation and xrays of the left knee This plan was discussed with the patient and he is in agreement. All of the patient's questions wereanswered. Kamron Woods MD Department of Orthopaedic Surgery 07/20/21 documented in this encounter Plan of Treatment Not on filedocumented as of this encounter Visit Diagnoses Diagnosis Closed displaced fracture of condyle of left femur with routine healing, subsequent encounter documented in this encounter Care Teams Convention Services Manager Relationship Specialty Start Date End Date Nathalie Franco APRN PCP - General Family Medicine 03/20/21 [address] [place] [address] documented as of this encounter
--- OUTSIDE RECORDS SUMMARY | 2022-01-19 00:41 | XMS_ITS | Clinical Summary ---
:1965 Author Organization [facility] [place] [address] Care Team Providers Name Role Phone Nathalie Franco TAWANNA Primary Care Provider Allergies No known active allergies Medications Medication Sig Dispensed Refills Start Date End Date Status buPROPion XL Take 300 mg by 0 Ac tive (Wellbutrin XL) 300 mg mouth daily. Tablet Extended Release 24 hr simvastatin (ZOCOR) 40 Take 40 mg by 0 Active mg Tablet mouth daily. ibuprofen (Advil) 800 Take 800 mg by 0 Active mg Tablet mouth 3 times daily (with meals). acetaminophen (Tylenol) Take 1,000 mg by 0 Active 500 mg Tablet mouth 3 times daily. tamsulosin (Flomax) 0.4 TAKE ONE CAPSULE 0 1 Active mg Capsule BY MOUTH EVERY DAY sertraline (Zoloft) 50 Take 50 mg by 0 10/11/2021 Active mg Tablet mouth daily. Active Problems Problem Noted Date Closed displaced fracture of condyle of left femur Pneumothorax, spontaneous, tension 10/08/2017 Bilateral inguinal hernia 10/08/2017 Overview: S/p repair BPH (benign prostatic hyperplasia) 10/08/2017 Encounters Date Type Specialty Care Team Description 10/25/2021 Office Visit Orthopaedics Kamron Woods MD Closed dis placed fracture of con dyle of left femur with routine healing, subseq uent encounter 10/25/2021 Hospital Encounter Radiology Kamron Woods MD Clos ed displaced fracture of con dyle of left femur with routine healing, subseq uent encounter from Last 3 Months Social History Tobacco Use Types Packs/Day Years Used Date Never Smoker Smokeless Tobacco: Never Used Alcohol Use Standard Drinks/Week Comments Yes 5 (1 standard drink = 0.6 oz pure alcoho l) Sex Assigned at Date Recorded Not on file Last Filed Vital Signs Vital Sign Reading Time Taken Comments Blood Pressure 138/79 10/25/2021 10:02 AM EDT Pulse 75 10/25/2021 10:02 AM EDT Temperature 36.9 ??C (98.4 ??F) 03/24/2021 12:41 PM EDT Respiratory Rate 18 03/24/2021 4:00 PM EDT Oxygen Saturation 95% 03/24/2021 4:00 PM EDT Inhaled Oxygen Concentration - - Weight 104.3 kg (230 lb) 10/25/2021 10:02 AM EDT Height 177.8 cm (5' 10) 10/25/2021 10:02 AM EDT Body Mass Index 33 10/25/2021 10:02 AM EDT Plan of Treatment Health Maintenance Due Date Last Done Comments Covid-19 Vaccine (#1) 12/29/1968 HIV screen 12/29/1981 Hepatitis C Screening 12/29/1981 Tdap adult 12/29/1982 Tetanus vaccine 12/29/1982 Diabetes Screening (HgbA1C or Glucose) 2003 Colonoscopy 12/29/2008 Zoster vaccine (1 of 2) 12/29/2013 Advance Directive 12/29/2018 Influenza (Flu) vaccine (1 of 1 - Influenza standard 02/22/2022 series) Medical Devices Implanted Type Area Telecommunications Switch Technician Device Shelf Model / Identifier Expiration Serial / Date Lot Screw 2.7x70mm Nlck Ft Ti T8 Variax ([id number]) (Autoreq) - Lo [id number] IMPLANTS Left: FANNY [id number] / Implanted: Qty: 1 on 03/24/2021 by Kamron Woods MD at [facility] Femur [employer] - / FANNY Procedures Procedure Name Priority Date/Time Associated Diagnosis Comme nts XR KNEE AP & LAT Routine 10/25/2021 9:12 AM Closed displaced R esults for this LEFT EDT fracture of condyle procedur e are in of left femur with the resul ts routine healing, section. subsequent encounter from Last 3 Months Results XR Knee 1-2 Views Left (Generic) [...] who have questions please contact the health direct care staffer that requested your imaging first. ? Narrative 10/25/2021 10:09 AM EDT EXAMINATION: XR [...] ho have questions please contact the health direct care staffer that requested your imaging first. Kamron Woods MD IMG DX ORDERABLES from Last 3 Months Insurance Payer Benefit Plan / Subscriber ID Effective Dates Phone Addre ss Type Group [place]ICAID [place]ICA[place] [id number] 2017-Prese [phone] [address] [facility]IMARY [facility] nt [address] [facility] [id number] 21 Care Teams Director Of Operations For Therapy Relationship Specialty Start Date End Date Nathalie Franco APRN PCP - General Family Medicine 03/20/21 [address] [place], [place] [address]
--- OUTSIDE RECORDS SUMMARY | 2022-01-19 00:42 | XMS_ITS | Encounter Summary ---
:1965 Author Organization [facility] Address [address] [place] [address] Care Team Providers Name Role Phone Alysia Campbell WRAPPER AND PRESERVER- Primary Care Provider [phone] Encounter Details Date Type Department Care Team Description 09/07/2021 Lab Requisition [facility] Outr Resulting Lab, Pathology & Laboratory Provider [facility] [address] [place] [address] Social History Tobacco Use Types Packs/Day Years Used Date Never Assessed Sex Assigned at Date Recorded Not on file documented as of this encounter Plan of Treatment Not on filedocumented as of this encounter Procedures Procedure Name Priority Date/Time Associated Comments Diagnosis PSA TOTAL, Routine 09/07/2021 9:05 EDT Results for this DIAGNOSTIC procedure are i n the results section. documented in this encounter Results (ABNORMAL) PSA TOTAL, DIAGNOSTIC (09/07/2021 9:05 EDT) Pathologist Sig nature PSA 13.1 (H) 0.0 - 3.5 ng/mL [facility] Specimen Blood - Venous blood (substance) Narrative [facility] - 09/07/2021 22:38 EDT NOTE: Serum PSA concentration should not be in terpreted as absolute evidence for the presence or absence of malignant disease. Assayed on Siemens ADVIA Centaur XPT usi ng chemiluminescent technology.??Values obtained by using different assay methods cannot be used interchangeably. Performing Organization Address City/State/ZIP Code Phon e Number [facility] [address] [place] [address] SERVICES documented in this encounter Visit Diagnoses Not on filedocumented in this encounter Care Teams Official Court Reporter Relationship Specialty Start Date End Date Alysia Campbell [facility] PCP - General 11/21/17 documented as of this encounter
--- OUTSIDE RECORDS SUMMARY | 2022-01-19 00:42 | XMS_ITS | Encounter Summary ---
:1965 Author Organization [facility] Address [address] [place] [address] Care Team Providers Name Role Phone Unknown, Provider Primary Care Provider Encounter Details Date Type Department Care Team Description 11/19/2017 Results Only [facility] Taina Brumfield, [address] [place] [address] [address] [place], [place] [id number] (Wo rk) Social History Tobacco Use Types Packs/Day Years Used Date Never Assessed Sex Assigned at Date Recorded Not on file documented as of this encounter Plan of Treatment Not on filedocumented as of this encounter Procedures Procedure Name Priority Date/Time Associated Diagnosis Comme nts SURGICAL PATHOLOGY Routine 11/19/2017 18:06 Resul ts for this EDT procedure are i n the results section. documented in this encounter Results SURGICAL PATHOLOGY (11/19/2017 18:06 EDT) Pathology Report: SURGICAL PATHOLOGY REPORT [facility] Reports generated via electronic interface contain jatinder ginal data; LABORATORY however they are lacking the format of the original re port. SERVICES Caution should be taken when reading/interpreting unfo rmatted reports. Name: ? RODO MURRAY ? Accession #: ? [id number] ? : ? 1965 (Age: 51 ) ??M ? Collect Date: ? 11/19/2017 ? Location: ? [facility] ? Receive Date: ? 11/20/19 18 ? Provider: TAINA SCHOFIELD MD Copy to: T[facility]CC[facility]IGU[facility]- ? Final Pathologic Diagnosis: A. COLON, ASCENDING, POLYP, BIOPSY: - ??Fragment of tubular adenoma. Document reviewed and electronically signed by: FRANDY CORNELIUS MD Report ??Date: 11/21/2017 11:00 By the signature above, the attending physician certif ies that he/she has personally conducted a gross and/or microscopic examin ation of the described specimens and rendered or confirmed the above diagnosi s. Specimen(s) Received: Ascending colon polyp Clinical History: H/O colon polyps Gross Description: ? Received in formalin labelled with proper patient identification (initials D, M) and ascending colon polyp is a holt tissue (0.3 x 0.2 x 0.1 cm). Submitted in toto in 1. ELISE Curiel (ASC) 11/20/2017 7:50 AM End of Report Specimen Performing Organization Address City/State/ZIP Code Phon e Number [facility] [address] [place] [address] SERVICES documented in this encounter Visit Diagnoses Not on filedocumented in this encounter Care Teams Pathology Laboratory Director Relationship Specialty Start Date End Date Unknown, Provider, PCP - General 11/19/17 11/20/17 documented as of this encounter
--- OUTSIDE RECORDS SUMMARY | 2022-01-19 00:42 | XMS_ITS | Encounter Summary ---
:1965 Author Organization [facility] Address [address] [place] [address] Care Team Providers Name Role Phone Tay Olivia [facility] Primary Care Provider [phone] Encounter Details Date Type Department Care Team Description 01/21/2018 Results Only [facility] PRISM Amador Holly, [address] [place] [address] [place] [phone] (Wo rk) Social History Tobacco Use Types Packs/Day Years Used Date Never Assessed Sex Assigned at Date Recorded Not on file documented as of this encounter Plan of Treatment Not on filedocumented as of this encounter Procedures Procedure Name Priority Date/Time Associated Diagnosis Comme [facility] SURGICAL PATHOLOGY Routine 01/21/2018 8:53 EDT Re sults for this procedure are i n the results section. documented in this encounter Results SURGICAL PATHOLOGY (01/21/2018 8:53 EDT) Pathology Report: SURGICAL PATHOLOGY REPORT [facility] Reports generated via electronic interface conta in original data; [facility] however they are lacking the format of the original re port. SERVICES Caution should be taken when reading/interpreting unfo rmatted reports. Name: ? RODO MURRAY ? Accession #: ? [id number] ? : ? 1965 (Age: 52 ) ??M ? Collect Date: ? 01/21/2018 ? Location: ? [facility] ? Receive Date: ? 8 ? Provider: AMADOR HOLLY MD Copy to: TAY OLIVIA CUPOLA TAPPER-BC ? Final Pathologic Diagnosis: A. PROSTATE, RIGHT BASE LATERAL, BIOPSY (1): - Prostatic tissue (10.0 mm) with atrophy. B. PROSTATE, RIGHT BASE MEDIAL, BIOPSY (1): - Prostatic tissue (13.5 mm) with atrophy and focal ch ronic inflammation. - Colorectal mucosa with no specific histopathologic f eatures. C. PROSTATE, RIGHT MIDDLE LATERAL, BIOPSY (1): - Prostatic tissue (13.8 mm) with atrophy and focal ch ronic inflammation. D. PROSTATE, RIGHT MID MEDIAL, BIOPSY (1): - Prostatic tissue (17.2 mm) with focal atrophy. - Colorectal mucosa with no specific histopathologic f eatures. E. PROSTATE, RIGHT APEX LATERAL, BIOPSY (1): - Prostatic tissue (12.1 mm) with atrophy and focal ch ronic inflammation. F. PROSTATE, RIGHT APEX MEDIAL, BIOPSY (1): - Fibromuscular tissue (15.6 mm toes one with no speci fic histopathologic features. G. PROSTATE, LEFT BASE LATERAL, BIOPSY (2): - Prostatic tissue (1.8 mm and 1.3 mm) with atrophy. - Colorectal mucosa with surface epithelial hyperplast ic changes. H. PROSTATE, LEFT BASE MEDIAL, BIOPSY (1): - Prostatic tissue (7.5 mm) with focal a trophy and focal chronic inflammation. I. PROSTATE, LEFT MIDDLE LATERAL, BIOPSY (1): - Prostatic tissue (8.0 mm) with focal atrophy. J. PROSTATE, LEFT MID MEDIAL, BIOPSY (1): - Prostatic tissue (15.7 mm) with focal atrophy. K. PROSTATE, LEFT APEX LATERAL, BIOPSY (1): - Prostatic tissue (17.8 mm) with focal atrophy and focal chronic inflammation. L. PROSTATE, LEFT APEX MEDIAL, BIOPSY (1): - Prostatic tissue (17.0 mm) with focal atrophy and focal chronic inflammation. Document reviewed and electronically signed by: Huang Mckeon MD Report ??Date: 01/24/2018 07:42 By the signature above, the attending physician certif ies that he/she has personally conducted a gross and/or microscopic examin ation of the described specimens and rendered or confirmed the above diagnosi s. Specimen(s) Received: A. ??Rt base lateral B. ??Rt base medial C. ??Rt mid lateral D. ??Rt mid medial E. ??Rt apex lateral F. ??Rt apex medial G. ??Lt base lateral H. ??Lt base medial I. ??Lt mid lateral J. ??Lt mid medial K. ??Lt apex lateral L. ??Lt apex medial Clinical History: Elevated PSA 8.8, had negative biopsy in [place] ab out 5 years ago Gross Description: A. ?Received in formalin labelled with proper p atient identification (initials D, M) and Rt base lateral is a single holt-white delicate needle core measuring 1.1 cm in length x 0.1 cm diameter. The specimen is submitted entirely in A1. B. ?Received in formalin labelled with proper p atient identification (initials D, M) and Rt base medial is a single holt-white delicate needle core measuring 1.5 cm in length x 0.1 cm in diameter. The s pecimen is submitted entirely in B1. C. ?Received in formalin labelled with proper p atient identification (initials D, M) and Rt mid lateral is a single holt-white delicate needle core measuring 1.5 cm in length x 0.1 cm diameter. The specimen is submitted entirely in C1. D. ?Received in formalin labelled with proper p atient identification (initials D, M) and Rt mid medial is a single holt-white delicate needle core measuring 2.0 cm in length x 0.1 cm diameter. The specimen is submitted entirely in D1. E. ?Received in formalin labelled with proper p atient identification (initials D, M) and Rt apex lateral is a single holt-white delicate needle core measuring 1.5 cm in length x 0.1 cm in diameter. The s pecimen is submitted entirely in E1. F. ?Received in formalin labelled with proper p atient identification (initials D, M) and Rt apex medial is a single holt-white delicate needle core measuring 1.0 cm in length x 0.1 cm in diameter. The s pecimen is submitted entirely in F1. G. ?Received in formalin labelled with proper p atient identification (initials D, M) and Lt base lateral ar e three fragmented pieces of holt-white delicate tissue measuring 0.1 x 0.1 x 0.1 cm. The spec imens are submitted entirely in G1. H. ?Received in formalin labelled with proper p atient identification (initials D, M) and Lt base medial is a single holt-white delicate needle core measuring 0.7 cm in length x 0.1 cm in diameter. The s pecimen is submitted entirely in H1. I. ?Received in formalin labelled with proper p atient identification (initials D, M) and Lt mid lateral is a single holt-white delicate needle core measuring 1.1 cm in length x 0.1 cm in diameter. The s pecimen is submitted entirely in I1. J. ?Received in formalin labelled with proper p atient identification (initials D, M) and Lt mid medial is a single holt-white delicate needle core measuring 1.5 cm in length x 0.1 cm in diameter. The s pecimen is submitted entirely in J1. K. ?Received in formalin labelled with proper p atient identification (initials D, M) and Lt apex lateral is a single holt-white delicate needle core measuring 1.6 cm in length and 0.1 cm in diameter. The specimen is submitted entirely in K1. L. ?Received in formalin labelled with proper p atient identification (initials D, M) and Lt apex medial is a single holt-white delicate needle core measuring 1.5 cm in length x 0.1 cm in diameter. The s pecimen is submitted entirely in L1. ELISE Sheth (ASCP) 01/22/2018 9:28 AM End of Report Specimen Performing Organization Address City/State/ZIP Code Phon e Number [facility] [address] [place] [address] SERVICES documented in this encounter Visit Diagnoses Not on filedocumented in this encounter Care Teams Tender Labor Relationship Specialty Start Date End Date Tay Olivia, CUPOLA TAPPER- PCP - General 11/21/17 documented as of this encounter
--- OUTSIDE RECORDS SUMMARY | 2022-01-19 00:42 | XMS_ITS | Encounter Summary ---
:1965 Author Organization [facility] Address [address] [place] [address] Care Team Providers Name Role Phone Alysia Campbell [facility] Primary Care Provider [phone] Encounter Details Date Type Department Care Team Description 12/18/2018 Hospital Encounter [facility] Unknown, Provider, Cristiano Tinoco MD [address] [facility] [phone] [place] [address] (Work) [phone] Social History Tobacco Use Types Packs/Day Years Used Date Never Assessed Sex Assigned at Date Recorded Not on file documented as of this encounter Discharge Disposition Disposition Code Departure Means Destination Home or Self Senior Living documented in this encounter Plan of Treatment Not on filedocumented as of this encounter Visit Diagnoses Not on filedocumented in this encounter Care Teams Supervisor [employer] Relationship Specialty Start Date End Date Alysia Campbell [facility] PCP - General 11/21/17 documented as of this encounter
--- OUTSIDE RECORDS SUMMARY | 2022-01-19 00:42 | XMS_ITS | Encounter Summary ---
:1965 Author Organization [facility] Address [address] [place] [address] Care Team Providers Name Role Phone Tay Olivia [facility] Primary Care Provider [phone] Encounter Details Date Type Department Care Team Description 12/18/2018 Results Only [facility] PRISM Amador Holly, [address] [place] [address] [place] [phone] (Wo rk) Social History Tobacco Use Types Packs/Day Years Used Date Never Assessed Sex Assigned at Date Recorded Not on file documented as of this encounter Plan of Treatment Not on filedocumented as of this encounter Procedures Procedure Name Priority Date/Time Associated Diagnosis Comme [facility] SURGICAL PATHOLOGY Routine 12/18/2018 21:04 Resul ts for this EDT procedure are i n the results section. documented in this encounter Results SURGICAL PATHOLOGY (12/18/2018 21:04 EDT) Pathology Report: SURGICAL PATHOLOGY REPORT [facility] Reports generated via electronic interface contain jatinder ginal data; LABORATORY however they are lacking the format of the original re port. SERVICES Caution should be taken when reading/interpreting unfo rmatted reports. Name: ? RODO MURRAY ? Accession #: ? [id number] ? : ? 1965 (Age: 52 ) ??M ? Collect Date: ? 12/18/2018 ? Location: ? [facility] ? Receive Date: ? 12/19/19 19 ? Provider: AMADOR HOLLY MD Copy to: TAY OLIVIA CHANGE COORDINATOR-BC ? Final Pathologic Diagnosis: PROSTATE, TRANSURETHRAL CURETTAGE: - Prostatic glandular and stroma hyperplasia with inspector pawnshop detail emma inflammation. - Prostatic urethraProst with acute and chronic inflam mation.atic urethral Document reviewed and electronically signed by: KOREY HARRELL MD Report ??Date: 12/23/2018 16:30 By the signature above, the attending physician certif ies that he/she has personally conducted a gross and/or microscopic examin ation of the described specimens and rendered or confirmed the above diagnosi s. Specimen(s) Received: Prostate chips Clinical History: Enlarged prostate, bladder stone Gross Description: ? Received in formalin labelled with proper patient identification (initials D, M) and prostate chips a re multiple holt-grace, rubbery and cauterized tissue fragments (19.9g, 5.6 x 5.6 x 2.1 cm in aggregate) wit h numerous yellow concretions measuring 1.3 x 1.3 x 0.6 cm in aggregate and red-brown blood clots measuring 1.6 x 1.4 x 0.5 cm in aggregate. The e ntire specimen except for the concretions is submitted in 07-23. Dr. Joens 12/19/2018 10:29 AM End of Report Specimen Performing Organization Address City/State/ZIP Code Phon e Number [facility] [address] [place] [address] SERVICES documented in this encounter Visit Diagnoses Not on filedocumented in this encounter Care Teams Manual Arts Therapist Relationship Specialty Start Date End Date Tay Olivia, CHANGE COORDINATOR- PCP - General 11/21/17 documented as of this encounter
--- OUTSIDE RECORDS SUMMARY | 2022-01-19 00:42 | XMS_ITS | Encounter Summary ---
:1965 Author Organization [facility] Address [address] [place] [address] Care Team Providers Name Role Phone Alysia CampbellP- Primary Care Provider [phone] Encounter Details Date Type Department Care Team Description 03/30/2020 Lab Requisition [facility] Outr Resulting Lab, Pathology & Laboratory Provider [facility] [address] [place] [address] Social History Tobacco Use Types Packs/Day Years Used Date Never Assessed Sex Assigned at Date Recorded Not on file documented as of this encounter Plan of Treatment Not on filedocumented as of this encounter Procedures Procedure Name Priority Date/Time Associated Comments Diagnosis PSA TOTAL, Routine 03/29/2020 8:25 EDT Results for this DIAGNOSTIC procedure are i n the results section. documented in this encounter Results (ABNORMAL) PSA TOTAL, DIAGNOSTIC (03/29/2020 8:25 EDT) Pathologist Sig nature PSA 11.1 (H) 0.0 - 3.5 ng/mL [facility] Specimen Blood - Venous blood (substance) Narrative [facility] - 03/30/2020 19:52 EDT NOTE: Serum PSA concentration should not be in terpreted as absolute evidence for the presence or absence of malignant disease. Assayed on Siemens [employer]IA Centaur XPT usi ng chemiluminescent technology.??Values obtained by using different assay methods cannot be used interchangeably. Performing Organization Address City/State/ZIP Code Phon e Number [facility] [address] [place] [address] SERVICES documented in this encounter Visit Diagnoses Not on filedocumented in this encounter Care Teams Vegetable Farm Manager Relationship Specialty Start Date End Date Alysia Campbell FNP-BC PCP - General 11/21/17 documented as of this encounter
--- OUTSIDE RECORDS SUMMARY | 2022-01-19 00:42 | XMS_ITS | Encounter Summary ---
:1965 Author Organization [facility] Address [address] [place] [address] Care Team Providers Name Role Phone Alysia Campbell [facility] Primary Care Provider [phone] Encounter Details Date Type Department Care Team Description 01/25/2021 Lab Requisition [facility] Outr Resulting Lab, Pathology & Laboratory Provider [facility] [address] [place] [address] Social History Tobacco Use Types Packs/Day Years Used Date Never Assessed Sex Assigned at Date Recorded Not on file documented as of this encounter Plan of Treatment Not on filedocumented as of this encounter Procedures Procedure Name Priority Date/Time Associated Diagnosis Comme nts COVID-19 TEST [facility] Today 01/24/2021 15:32 LAB PCR EDT COVID-19 TESTING Routine 01/24/2021 15:32 Results for this EDT procedure are i n the results section. documented in this encounter Results COVID-19 TEST [facility] LAB PCR (01/24/2021 15:32 EDT) Specimen Swab - Entire nasopharynx (body structur e) Performing Organization Address City/State/ZIP Code Phon e Number [facility] [address] [place] [address] SERVICES COVID-19 TESTING (01/24/2021 15:32 EDT) COVID-19 rt-PCR Negative Negative [facility] Result Comment: [facility] This test has not been FDA c leared or approved. This test has been authorized by FDA under an EUA for use by authorized laboratories. This test has been authorized only for detection of nucleic acid fro SERVICES m 2018-nCo, not for any oth er viruses or pathogens. This test is only authorized for the duration of the declaration that circumstances exist justifying the authorization of emergency use of in vitro d iagnostic tests for detectio n and/or diagnosis of 2019-nCoV under section 564(b)(1) of Act, 21 U.S.C ?? 360bbb-3(b) (1), unless the authorization is terminated or revoked sooner. Negative results do not prec lude 2019-nCoV infection and should not be used as the sole basis for treatment or other patient management decisions. Negative results must be combined with clinical observa tions, patient history, and epidemiological informatio n. Testing was performed using the pierre SARS-CoV-2 assay ([employer] on the Pierre 6800 System Performing Lab [address] [facility] Lab [facility] Specimen Swab Performing Organization Address City/State/ZIP Code Phon e Number [facility] [address] [place] [address] SERVICES documented in this encounter Visit Diagnoses Not on filedocumented in this encounter Care Teams Concrete Hopper Operator Relationship Specialty Start Date End Date Alysia Campbell FNP- PCP - General 11/21/17 documented as of this encounter
--- OUTSIDE RECORDS SUMMARY | 2022-01-19 00:42 | XMS_ITS | Encounter Summary ---
:1965 Author Organization [facility] Address [address] [place] [address] Care Team Providers Name Role Phone Alysia CampbellP- Primary Care Provider [phone] Encounter Details Date Type Department Care Team Description 01/31/[address] [facility] Outr Resulting Lab, Pathology & Laboratory Provider [facility] [address] [place] [address] Social History Tobacco Use Types Packs/Day Years Used Date Never Assessed Sex Assigned at Date Recorded Not on file documented as of this encounter Plan of Treatment Not on filedocumented as of this encounter Procedures Procedure Name Priority Date/Time Associated Diagnosis Comme nts LYME AB Routine 01/31/2021 9:33 EDT Results for this procedure are i n the results section . documented in this encounter Results LYME AB (01/31/2021 9:33 EDT) Pathologist Sig nature Lyme Ab Negative Negative [facility] Specimen Blood - Venous blood (substance) Performing Organization Address City/State/ZIP Code Phon e Number [facility] [address] [place] [address] SERVICES documented in this encounter Visit Diagnoses Not on filedocumented in this encounter Care Teams Cryptographer Relationship Specialty Start Date End Date Alysia Campbell, [facility] PCP - General 11/21/17 documented as of this encounter
--- OUTSIDE RECORDS SUMMARY | 2022-01-19 00:42 | XMS_ITS | Encounter Summary ---
:1965 Author Organization [facility] Address [address] [place] [address] Care Team Providers Name Role Phone Alysia Campbell [facility] Primary Care Provider [phone] Encounter Details Date Type Department Care Team Description 10/16/2019 Lab Requisition [facility] Unknown, Provider, Pathology & Laboratory [facility] [address] [place] [address] [place] [address] Social History Tobacco Use Types Packs/Day Years Used Date Never Assessed Sex Assigned at Date Recorded Not on file documented as of this encounter Plan of Treatment Not on filedocumented as of this encounter Procedures Procedure Name Priority Date/Time Associated Diagnosis Comme nts LYME AB Routine 10/16/2019 16:45 EDT Results for this procedure are i n the results section . documented in this encounter Results LYME AB (10/16/2019 16:45 EDT) Pathologist Sig nature Lyme Ab Negative Negative [facility] Specimen Blood - Venous blood (substance) Performing Organization Address City/State/ZIP Code Phon e Number [facility] [address] [place] [address] SERVICES documented in this encounter Visit Diagnoses Not on filedocumented in this encounter Care Teams Secretary Of State Relationship Specialty Start Date End Date Alysia Campbell, [facility] PCP - General 11/21/17 documented as of this encounter
--- OUTSIDE RECORDS SUMMARY | 2022-01-19 00:42 | XMS_ITS | Encounter Summary ---
:[address] [facility] Address [address] [place] [address] Care Team Providers Name Role Phone Unknown, Provider Primary Care Provider Encounter Details Date Type Department Care Team Description 11/19/2017 Hospital Encounter [facility] Unknown, Pro Luz li MD [address] [facility] [phone] [place] [address] (Work) [phone] Social History Tobacco Use Types Packs/Day Years Used Date Never Assessed Sex Assigned at Date Recorded Not on file documented as of this encounter Discharge Disposition Disposition Code Departure Means Destination Home or Self Intermediate documented in this encounter Plan of Treatment Not on filedocumented as of this encounter Visit Diagnoses Not on filedocumented in this encounter Care Teams Wash Tank Tender Relationship Specialty Start Date End Date Unknown, Provider, PCP - General 11/19/17 11/20/17 documented as of this encounter
--- OUTSIDE RECORDS SUMMARY | 2022-01-19 00:42 | XMS_ITS | Encounter Summary ---
:1965 Author Organization [facility] Address [address] [place] [address] Care Team Providers Name Role Phone Alysia Campbell [facility] Primary Care Provider [phone] Encounter Details Date Type Department Care Team Description 10/15/2019 Lab Requisition [facility] Unknown, Provider, Pathology & Laboratory [facility] [address] [place] [address] [place] [address] Social History Tobacco Use Types Packs/Day Years Used Date Never Assessed Sex Assigned at Date Recorded Not on file documented as of this encounter Plan of Treatment Not on filedocumented as of this encounter Procedures Procedure Name Priority Date/Time Associated Diagnosis Comme nts COVID-19 TEST [facility] Today 10/15/2019 12:50 LAB PCR EDT COVID-19 TESTING Routine 10/15/2019 12:50 Results for this EDT procedure are i n the results section. documented in this encounter Results COVID-19 TEST [facility] LAB PCR (10/15/2019 12:50 EDT) Specimen Swab - Entire nasopharynx (body structur e) Performing Organization Address City/State/ZIP Code Phon e Number [facility] [address] [place] [address] SERVICES COVID-19 TESTING (10/15/2019 12:50 EDT) COVID-19 rt-PCR Negative Negative [facility] Result Comment: [facility] Negative results do not prec lude 2019-nCoV infection and should not be used as the sole basis for treatment or other patient management decisions. Negative results must be combined with clinical observa SERVICES tions, patient history, and epidemiological informatio n. This test has not been FDA c leared or approved. This test has been internally validated, but independent review and determination of emergency use authorization ??(EUA) by the FDA is pending. Performed on the [employer] Performing Lab [facility] Lab [facility] Specimen Swab - Entire nasopharynx (body structur e) Performing Organization Address City/State/ZIP Code Phon e Number [facility] [address] [place] [address] SERVICES documented in this encounter Visit Diagnoses Not on filedocumented in this encounter Care Teams Senior Policy Advisor Relationship Specialty Start Date End Date Alysia Campbell, HEAD FILTER TANK TENDER HELPER- PCP - General 11/21/17 documented as of this encounter
--- OUTSIDE RECORDS SUMMARY | 2022-01-19 00:42 | XMS_ITS | Encounter Summary ---
:1965 Author Organization [facility] Address [address] [place] [address] Care Team Providers Name Role Phone Alysia Campbell [facility] Primary Care Provider [phone] Encounter Details Date Type Department Care Team Description 12/14/2019 Lab Requisition [facility] Holly for other Pathology & MD Cali general examination Laboratory Medicine [address] [place], [place] [address] [facility] [address] [place], [place] [id number] Social History Tobacco Use Types Packs/Day Years Used Date Never Assessed Sex Assigned at Date Recorded Not on file documented as of this encounter Plan of Treatment Not on filedocumented as of this encounter Procedures Procedure Name Priority Date/Time Associated Diagnosis Comme nts SURGICAL PATHOLOGY Today 12/14/2019 15:02 Encounter for othe r Results for this EDT general examination procedur e are in the results section. documented in this encounter Results SURGICAL PATHOLOGY (12/14/2019 15:02 EDT) Final Diagnosis A. URINARY BLADDER, NECK, TR ANSURETHRAL RESECTION OF BLADDER (TURB): [facility] Electronically - Polypoid cystitis with focal cystitis cystica. CENTER signed by Mike, - Focal urothelial denudation. LABORATORY MD Huang on - Reactive urothelial changes. SERVICES 12/18/2019 at 0819 - Negative for papillomatous process. - Negative for dysplasia and ramya malignancy. - No definitive muscularis propria. - Urinary bladder stones. Gross diagnosis. Attestation There was significant [facility] Electr onically resident/fellow CENTER signed by Alo schmidt, involvement in the LABORATORY MD Huang on diagnostic evaluation SERVICES 020 at 0819 of this case. By the signature below, the attending physician certifies that they have personally conducted a gross and/or microscopic examination of the described specimens and rendered or confirmed the above diagnosis. Clinical History Bladder stone [facility] Gross Description A. Received in formalin labe lled with proper patient identification (initials D, M) and bladder neck are soft and rubbery holt-vega tissue fragments aggregating 1.0 x 1.0 x 0.6 cm. [facility] Received in the same contain er are 2 irregular yellow-brown concretions averaging 0.2 cm in greatest dimension. The soft tissue is entirely submitted in A1-A2. [facility] Christine Houston 12/15/2019 8:13 Resident/Fellow: Macrina Harris [facility] DUNIA Figueroa MD [facility] Scanned Images [facility] Specimen Tissue - Bladder biopsy sample (specimen ) Performing Organization Address City/State/ZIP Code Phon e Number [facility] [address] [place] [address] SERVICES documented in this encounter Visit Diagnoses Diagnosis Encounter for other general examination documented in this encounter Care Teams Raimann Machine Operator Relationship Specialty Start Date End Date Alysia Campbell FNP- PCP - General 11/21/17 documented as of this encounter
--- OUTSIDE RECORDS SUMMARY | 2022-01-19 00:42 | XMS_ITS | Clinical Summary ---
:1965 Author Organization [facility] Address [address] [place] [address] Care Team Providers Name Role Phone Alysia Campbell [facility] Primary Care Provider [phone] Social History Tobacco Use Types Packs/Day Years Used Date Never Assessed Sex Assigned at Date Recorded Not on file Plan of Treatment Health Maintenance Due Date Last Done Comments Hepatitis C Screen 1965 COVID-19 Vaccine (1) 12/29/1968 Insurance Payer Benefit Plan / Subscriber ID Effective Phone Address T ype Group Dates [place] [id number] 2021-Prese [address] Medicaid [place] nt [facility] [id number] y (Home) [place] [address] Care Teams Md Senior Research Scientist Relationship Specialty Start Date End Date Alysia Campbell, [facility] PCP - General 11/21/17
--- NOTE | 2022-01-19 07:30 | DI.US_ITS ---
Exam(s) US RENAL EXAM: US RENAL CLINICAL HISTORY: monitor known stones, KIDNEY STONE, BLADDER STONE, N20.0, N21.0. TECHNIQUE: Chaudhary scale, color and spectral Doppler were used. COMPARISON: US US RENAL from 07/21/2021 FINDINGS: Renal size in cm: Right: 10.7. Left: 10.3. Echogenicity: Normal. Hydronephrosis: No. Cyst or mass: No. Nephrolithiasis: Left nephrolithiasis. There are 2 inferior pole stones. The larger measures 1.1 cm . Other findings: None. Bladder:2 bladder stones are present. The larger measures 1.2 cm. The smaller measures 0.8 cm. The re is again seen a large soft tissue mass in the base of the bladder contiguous with the prostate. T his may represent an enlarged prostate gland but a bladder or prostatic neoplasm cannot be excluded. Ureteral jets: Right: Not visualized on this examination. Left: Not visualized on this examination. Prevoid vol:320 cc Postvoid vol:The patient was unable to void. Prostate: Please see the above discussion of the urinary bladder. Two hundred eighty-one cc Renal color flow: Symmetric and within normal limits. IMPRESSION: 1. Left nephrolithiasis. No hydronephrosis. 2. Urinary bladder stones. 3. Soft tissue mass is again seen in the base of the urinary bladder contiguous with the prostate gla nd. This may represent a marked prostatic hypertrophy. Urinary bladder or prostate mass cannot be e xcluded. DATA REPOSITORY:
== END ==
PROVIDERS: PCP Nurse Practitioner Family; Visit Provider Urology
DX: N20.0 Calculus of kidney (principal); N21.0 Calculus in bladder; M79.89 Other specified soft tissue disorders
CPT/HCPCS: 76770

== ENCOUNTER 2022-03-20 03:11 | Outpatient (CLI) | payer MEDICAID, SELFPAY ==
[2022-03-20 22:31] LABS: PSA, Diagnostic 10.7 ng/mL (<=3.5)
== END 2022-03-20 03:12 | disposition home or self-care (01) ==
LOC: LBO 03:11
PROVIDERS: PCP Nurse Practitioner Family; Visit Provider Urology
DX: R97.20 Elevated prostate specific antigen [PSA] (principal)
CPT/HCPCS: 36415; 84153

== ENCOUNTER 2022-05-28 09:57 | Inpatient (IN) | payer MEDICAID, SELFPAY ==
[2022-05-28] VITALS (26 sets, daily range): BP systolic 74–137; BP diastolic 36–87; PULSE 66–89; RESP 13–21; TEMP 36.2–37; O2SAT 91–98; BMI 32.8
--- NOTE | 2022-05-28 06:22 | W.ANESPRE ---
General Info Date of Service Date Performed: 05/28/22 Height: 5 ft 10 in Weight: 104 kg Body Mass Index (BMI): 32.8 Surgical Procedure: Operation Date: 05/28/22 07:40 Proposed Procedure Side Surgeon p Simple Suprapubic Prostatectomy w/ Cysto Lithotomy Amaodr Holly MD Meds Allergies and Home Medications Allergies Allergy/AdvReac Type Severity Reaction Status Date / Time No Known Allergies Allergy Unverified 03/27/22 08:40 Home Medication Medication Instructions Recorded bupropion HCl 150 mg tablet,12 hr 300 mg PO DAILY 06/24/17 sustained-release (Wellbutrin SR) simvastatin 40 mg tablet 40 mg PO DAILY 12/08/20 diazepam 5 mg tablet (Valium) 5 mg PO TID PRN muscle spasm #10 03/19/21 tabs acetaminophen 500 mg tablet 500 - 1,000 mg PO Q6H PRN 04/25/21 (Tylenol Extra Strength) potassium citrate 10 mEq (1,080 10 meq PO BID kidney stones #60 08/04/21 mg) tablet,extended release tabs (Urocit-K 10) tamsulosin 0.4 mg capsule See Rx Instructions .Route 12/04/21 .COMPLEX #90 caps sertraline 50 mg tablet 50 mg PO DAILY 03/27/22 loperamide 2 mg capsule 2 mg PO Q4H PRN 05/24/22 Current Visit Medications: Current Medications Generic Name Dose Route Start Last Admin Trade Name Freq PRN Reason Stop Dose Admin Ringer's Solution 1,000 mls @ 80 mls/hr 05/28/22 06:00 IV 06/24/22 23:59 INFUSION FRANK Cefazolin Sodium/Dextrose 2 gm in 50 mls @ 100 mls/hr 05/28/22 06:00 Ancef Duplex IVPB 05/28/22 16:00 PREOP FRANK IV Miscellaneous Supplies 1 each 05/28/22 06:00 Iv Access IV 06/24/22 23:59 DIRECTED FRANK Sodium Chloride 0 ml 05/28/22 06:00 Normal Saline Flush 10 Ml Syr IV 06/24/22 23:59 PRN PRN Sodium Chloride 0 ml 05/28/22 06:00 Normal Saline 10 Ml Vial IJ 06/24/22 23:59 DIRECTED PRN Sterile Water 0 ml 05/28/22 06:00 Water,Injection,Sterile 10 Ml Vial IJ 06/24/22 23:59 DIRECTED PRN PFSH Active Problems Active Problems: Problem Status Onset Code Clot retention of urine R33.8 Bladder stone N21.0 Left ureteral stone N20.1 Elevated PSA R97.20 BPH (benign prostatic hyperplasia) 08/22/17 N40.0 Kidney stone 08/22/17 N20.0 Tubular adenoma of colon 11/19/17 D12.6 Urinary frequency R35.0 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 Tinnitus, bilateral H93.13 Ureteral stone N20.1 Bladder mass N32.89 Hypertension I10 Onychomycosis of toenail B35.1 Onychodystrophy L60.3 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 Hematuria R31.9 Weight gain R63.5 Superficial thrombophlebitis I80.9 Hyperlipidemia E78.5 Skin tag L91.8 Femoral distal fracture S72.409A Impacted cerumen, bilateral H61.23 Conductive hearing loss, external ear H90.2 Sensorineural hearing loss, bilateral H90.3 Medical History Medical History Christopher's palsy BPH (benign prostatic hyperplasia) Depression History of nephrolithiasis History of torn meniscus of right knee Pneumothorax Pneumothorax on left spontaneous Pneumothorax on right spontaneous Varicosities of leg Surgical History Surgical History (Updated 05/24/22 @ 12:41 by Ana Paula Raygoza RN) Colonoscopy - MAC (11/19/17) Fracture of left leg ORIF left leg, plate and screws H/O prostate biopsy History of cystoscopy Repair of inguinal hernia S/P TURP (status post transurethral resection of prostate) Tobacco Smoking/Tobacco Use Status: Never Alcohol Alcohol Intake: current Alcohol intake frequency: a few times a week Alcohol type: beer and wine Substance Use Substance use: Never Substance use type: does not use Vital Signs and Lab Results Vital Signs Most Recent Vital Signs in EMR: Temp Pulse Resp BP Pulse Ox 36.7 C 78 18 137/87 98 05/28/22 07:12 05/28/22 07:12 05/28/22 07:12 05/28/22 07:12 05/28/22 07:12 Lab Results Blood Type / Crossmatch: No Data to Display Complete Blood Count: No Data to Display Complete Metabolic Panel: No Data to Display Liver Function Panel: No Data to Display Coagulation Panel: No Data to Display Cardiac Panel: No Data to Display Arterial Blood Gas: No Data to Display Venous Blood Gas: No Data to Display Pancreas Panel: No Data to Display Thyroid Panel: No Data to Display Infectious Disease: No Data to Display Blood Cultures: No Data to Display Toxicology Panel: No Data to Display Anesthesia Assessment and Plan Anesthesia History Personal History: No History of Anesthesia Complications Family History: No Family History of Anesthesia Complications Exercise Tolerance Exercise Tolerance: Metabolic Equivalents>4 Cardiac & Pulmonary Exam Cardiac Exam: Normal S1/S2 Heart Sounds Pulmonary Exam: Clear Bilateral Breath Sounds Implantable Cardiac Device Does patient have a Pacemaker or an ICD?: No Airway Exam Known Difficult Airway: No Mallampati Class: 1 Mouth Opening: Normal (> 3cm) Thyromental Distance: Greater than 3 cm Facial Hair: Full Jackson Neck Range of Motion: Limited ROM Neck Circumference: Normal Teeth Condition: Normal Dentition ASA Classification ASA Score: ASA 2 Emergency Case?: No NPO Status NPO Status: NPO Clears >2 hours, Solids >8 hours Anesthesia Plan Resuscitation Status: Full Code Anesthesia Technique: General Anesthesia Airway Planned: Endotracheal Tube Pain Management: Intrathecal Analgesia Monitors Used: Standard Monitors Preoperative Comments:: 56 yo male with bladder stone for simple suprapubic prostatectomy. Sig PMHx: bladder stone, BPH/elevated PSA, HTN, bells palsy, spontaneous ptx, never smoker, occ EtOH. Previous Anes: colos and cysto with prop no airway. cysto mac 4 grade 2 a, and a 5 LMA.
[2022-05-28 07:08] LABS: Source Nasal/Nares
--- NOTE | 2022-05-28 07:20 | W.PM.HP.N ---
Date of service: 05/28/22 Time of Service: 07:20 Assessment and Plan Assessment and plan (1) Bladder stone: Status: Acute (2) BPH (benign prostatic hyperplasia): Status: Acute Assessment and plan: We will plan to do an open cystolithotomy and do a simple suprapubic prostatectomy to relieve his bladder outlet obstruction. He will be hospitalized following the procedure for continuous bladder irrigation. History of Present Illness History of Present Illness Chief Complaint: BPH with LUTS Narrative: This is a 56-year-old gentleman who has a history of urolithiasis. He initially presented with urinary clot retention. We did cystoscopy with clot evacuation. We identified a markedly enlarged prostate with no bladder lesions. Following the procedure, he was still unable to void. He was found to have an elevated PSA level. Prostate biopsies showed no evidence of malignancy. He then underwent cystoscopy with TURP and holmium laser lithotripsy of his stones. Since then, he has been able to void, but continues to have urinary frequency and urgency. He continues to have stones that build up in his bladder. We had discussed whether to redo an endoscopic procedure or to do an open procedure to evacuate bladder stones and do a simple prostatectomy at the same time. He is agreeable to the open procedure. He has no current dysuria or gross hematuria. Review of Systems Narrative: No fevers or chills Decreased hearing acuity. No vision change or dysphasia No diabetes or thyroid dysfunction No shortness of breath, cough or hemoptysis No chest pain or palpitations No nausea, vomiting, hepatitis, ulcers, jaundice No seizures, strokes or peripheral neuropathy No bleeding disorders or anemia No gout PFSH All Active Problems Clot retention of urine (Acute) Bladder stone (Acute) Left ureteral stone (Acute) Elevated PSA (Acute) BPH (benign prostatic hyperplasia) (Acute 08/22/17) neg prostate biopsy 2009 (done in [place]) Kidney stone (Acute 08/22/17) CT 2018 ~1cm l UPJ ~5mm nonobstructing lower pole left kidney ~2.5cm urinary bladder Tubular adenoma of colon (Acute 11/19/17) Urinary frequency (Acute) 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 (Acute) Tinnitus, bilateral (Acute) Ureteral stone (Acute) Bladder mass (Acute) Hypertension (Chronic) Onychomycosis of toenail (Acute) Onychodystrophy (Acute) Basal ganglia infarction (Acute) Hematuria (Acute) Weight gain (Acute) Superficial thrombophlebitis (Acute) Hyperlipidemia (Acute) Skin tag (Acute) Femoral distal fracture (Acute) Impacted cerumen, bilateral (Acute) Conductive hearing loss, external ear (Acute) Sensorineural hearing loss, bilateral (Acute) Medical History Christopher's palsy BPH (benign prostatic hyperplasia) Depression History of nephrolithiasis History of torn meniscus of right knee Pneumothorax Pneumothorax on left spontaneous Pneumothorax on right spontaneous Varicosities of leg Surgical History Colonoscopy - MAC (11/19/17) Fracture of left leg ORIF left leg, plate and screws H/O prostate biopsy History of cystoscopy Repair of inguinal hernia S/P TURP (status post transurethral resection of prostate) Social History Smoking/Tobacco Use Status: Never Smoking risk assessment performed?: Yes Alcohol Intake: current Alcohol Intake frequency: a few times a week Alcohol type: beer and wine Drug use: Never Substance use type: does not use Do you feel safe at home: Yes Do you feel safe in your relationship?: Yes Meds Allergies and Home Medications Allergies Allergy/AdvReac Type Severity Reaction Status Date / Time No Known Allergies Allergy Unverified 03/27/22 08:40 Home Medications Medication Instructions Recorded Confirmed Type bupropion HCl 150 mg tablet,12 hr 300 mg PO DAILY 06/24/17 05/28/22 History sustained-release (Wellbutrin SR) simvastatin 40 mg tablet 40 mg PO DAILY 12/08/20 05/28/22 History diazepam 5 mg tablet (Valium) 5 mg PO TID PRN muscle spasm #10 03/19/21 05/28/22 Rx tabs acetaminophen 500 mg tablet 500 - 1,000 mg PO Q6H PRN 04/25/21 05/28/22 History (Tylenol Extra Strength) potassium citrate 10 mEq (1,080 10 meq PO BID kidney stones #60 08/04/21 05/28/22 Rx mg) tablet,extended release tabs (Urocit-K 10) tamsulosin 0.4 mg capsule See Rx Instructions .Route 12/04/21 05/28/22 Rx .COMPLEX #90 caps sertraline 50 mg tablet 50 mg PO DAILY 03/27/22 05/28/22 History loperamide 2 mg capsule 2 mg PO Q4H PRN 05/24/22 05/28/22 History Exam Const General: cooperative and comfortable Neck Neck: supple Resp Effort & Inspection: normal respiratory effort Auscultation: clear to auscultation bilaterally Cardio Rate: regular rate Rhythm: regular rhythm GI Palpation: soft and no masses Neuro General: patient alert, patient awake and patient oriented x3 Results Labs Labs: Laboratory Results - last 24 hr 05/28/22 07:03 COVID-19 Source Nasal/Nares Last Vital Signs Temp 36.7 C 05/28/22 07:12 Pulse 78 05/28/22 07:12 Resp 18 05/28/22 07:12 BP 137/87 05/28/22 07:12 Pulse Ox 98 05/28/22 07:12
[2022-05-28] MEDS: Lactated Ringers 1,000 ML 80 ML IV ×2 (07:24→22:13)
[2022-05-28 07:56] LABS: COVID-19 PCR Negative (Negative)
[2022-05-28] MEDS: ceFAZolin 2 GM/50 ML BAG IVPB (08:12)
--- NOTE | 2022-05-28 09:27 | PROST_PTH ---
PATIENT: Rodo Elizabeth LOC: U#:[id number] AGE/SX: 56/M ROOM: 226 RE05/28/[address]: Amador Holly MD : 1965 BED: A DIS: 05/30/2022 SPEC #: [id number] RECD: 05/28/22 12:49 STATUS: FRANCISCO J REQ #: [id number] FELICIA: 05/28/22 09:[address]: Amador Holly DEPT: Surgical Specimen RECD BY: Rosetta Quintana ENTERED: 05/28/22 12:49 SP TYPE: PROST OTHR DR: Nathalie Franco Tissues: 1 - PROSTATE RESECTION Procedures: GROSS AND MICRO LEVEL 5 Comments: [id number]
[2022-05-28] MEDS: Bupivacaine 0.25% Pres-Free 30 ML VIAL (09:42)
--- NOTE | 2022-05-28 10:07 | ROE_ITS ---
Date of service: 05/28/22 Time of Service: 10:07 Operative Note Operative Note DATE OF PROCEDURE: 05/28/22 PRE-OP DIAGNOSIS: 1. BPH with LUTS 2. Bladder stones POST-OP DIAGNOSIS: same PROCEDURE: Simple suprapubic prostatectomy with cystolithopaxy SURGEON: Amador Holly ANESTHESIA TYPE: Local By Surgeon, General LMA/ETT and Spinal Refer to Anesthesia Record ESTIMATED BLOOD LOSS: 200 PATHOLOGY: other (1. Prostate 2. Bladder stones for chemical analysis) COMPLICATIONS: None Patient was transported to: PACU Patient's condition: stable Implants: 24 Lebanese irrigating mcmanus catheter with 50 cc sterile water in balloon KIRSTEN drain Indications: This is a 56-year-old gentleman who has a history of an elevated PSA. He has had negative prostate biopsies in the past. He has had episodes of gross hematuria with clot retention. He underwent cystoscopy and evacuation of his bladder clots, but he was still unable to void. He then underwent a transurethral resection of the prostate. He has been able to void but he has had persistent frequency and urgency. He has developed multiple bladder stones which have required cystolitholopaxy in the past. He is now agreeable to a simple prostatectomy with evacuation of his bladder stones. Findings: Bladder stones with large intravesical portion of the prostate Procedure Description: The patient was brought to the operating room on 05/28/2022. He was given preoperative IV antibiotics. He was given a Duramorph intrathecal injection. He was placed in the supine position. General anesthesia was then induced. His genitalia and lower abdomen were prepped and draped. Initially, a 16 Lebanese coud? tipped catheter was passed through the urethra into the bladder. The catheter balloon was inflated with 10 cc of sterile water. A Pfannenstiel incision was then made and extended down through the subcutaneous fat until the rectus fascia was identified. The fascia was opened along the direction of the incision. We then dissected the rectus muscle off the underside of the fascia. This was done using the Bovie. The bellies of the rectus muscle were then retracted laterally. We then came down on the patient's bladder. We the surrounding connective tissue using sharp and blunt dissection. We placed stay sutures laterally in the detrusor muscle. We then opened the bladder longitudinally in the midline. Multiple stones were encountered and were collected and sent to pathology for chemical analysis. Inspection of the bladder revealed a very large intravesical portion of the prostate. The intravesical portion of the prostate was then secured with a Marion clamp. The bladder neck mucosa was then opened using the Bovie and a plane was developed between the prostatic capsule and the prostatic adenoma. The prostate was dissected out using blunt dissection. Once the prostate was dissected free, the urethra was transected using finger fracture. A 24 Lebanese hematuria catheter was then passed through the urethra into the b ladder. The catheter balloon was inflated with 50 cc of sterile water. The catheter was then withdrawn and traction from the balloon was placed on the prostatic capsule. The catheter was hand irrigated until the irrigant became clear. The bladder was again inspected and no additional stones were seen within the bladder. The bladder was closed in 2 layers. We used a running 0 Vicryl suture to close the mucosa. The muscle was closed over the mucosa using [id number] 0 Vicryl sutures. Once the bladder was closed, continuous bladder irrigation with saline was begun and continued for the remainder the procedure. A 10 mm Dank-Cadet drain was placed over the bladder and brought out through a separate stab wound lateral to our initial incision. The rectus fascia was closed with a running 0 PDS suture. The skin was closed with a subcuticular 4-0 Vicryl.. The patient tolerated this procedure well with no complications.
[2022-05-28] MEDS: HYDROmorphone 2 MG/ML SYR IVP ×3 (10:29→10:59)
[2022-05-28] MEDS: Normal Saline 10 ML VIAL IJ (10:29)
--- NOTE | 2022-05-28 10:56 | W.ANESPOSTOP ---
Postoperative Evaluation Date, Time and Location Date Performed: 05/28/22 Time Performed: 10:56 Patient Location: PACU Vital Signs Most Recent Imported Vital Signs: Most Recent Vital Signs Temp Pulse Resp BP Pulse Ox 36.3 C L 66 21 104/53 L 104 H 05/28/22 10:05 05/28/22 10:15 05/28/22 10:15 05/28/22 10:15 05/28/22 10:15 Pain Score Most Recent Pain Score: Most Recent Pain Score Pain Level 0 05/28/22 10:15 Assessment Mental Status: Awake (Alert & Oriented to Patient Baseline) Airway and Respiratory Function: Patent airway with normal (patient baseline) respiratory exam Cardiovascular Function: Hemodynamically Stable Hydration Status: Adequately Hydrated Nausea & Vomiting: No Nausea or Vomiting Pain: Pain is tolerable per patient Peripheral Nerve Block: Patient did not receive a nerve block
[2022-05-28] MEDS: Lactated Ringers 1,000 ML 125 ML IV (11:54)
[2022-05-28] MEDS: ceFAZolin 1 GM/50 ML BAG IVPB ×2 (14:06→21:57)
[2022-05-28] MEDS: Naloxone 0.4 MG/ML VIAL IVP ×2 (16:27→19:39)
[2022-05-28] MEDS: Normal Saline Flush 10 ML SYR IV ×2 (16:27→21:58)
[2022-05-28] MEDS: Simvastatin 40 MG TAB PO (21:57)
[2022-05-29] VITALS: RESP 16
[2022-05-29] MEDS: ceFAZolin 1 GM/50 ML BAG IVPB (06:08)
[2022-05-29] MEDS: Normal Saline Flush 10 ML SYR IV ×4 (06:09→19:47)
[2022-05-29 06:44] LABS: HCT 36.8 % (40.0-50.0); HGB 12.3 g/dL (13.5-17.5); MCHC 33.4 % (32.0-36.0); MCV 90 fL (80-95); MPV 10.2 fL (8.0-11.0); Platelet Count 245 10^3/uL (130-400); RDW 12.9 % (11.8-14.1); RDW-SD 42.2 fL
[2022-05-29 06:50] VITALS: RESP 16
[2022-05-29 07:03] LABS: Anion Gap 9.1 mmol/L (3-11); BUN 22 mg/dL (7-18); CO2 25.9 mmol/L (21.0-32.0); CREATININE 0.9 mg/dL (0.70-1.30); Calcium 8.7 mg/dL (8.5-10.1); Chloride 102 mmol/L (98-107); Glucose 149 mg/dL (74-106); Potassium 4.2 mmol/L (3.5-5.1); Sodium 137 mmol/L (136-145)
[2022-05-29 07:19] LABS: Absolute Lymphocyte Count 1.71 10^3/uL (1.2-3.4); Absolute Monocyte Count 0.95 10^3/uL (0.1-0.8); Absolute Neutrophil Count 16.34 10^3/uL (1.2-6.7); Atypical Lymphocytes % 1; Diff Comment Manual Differential; RBC Morphology Normal
[2022-05-29 07:29] VITALS: BP 115/72; PULSE 60; RESP 16; TEMP 36.2; O2SAT 95
--- NOTE | 2022-05-29 07:34 | W.PM.PROGNOT ---
Date of Service Date of service: 05/29/22 Time of Service: 07:34 Assessment and Plan Assessment and plan (1) BPH (benign prostatic hyperplasia): Status: Acute Assessment and plan: We will increase his activity and attempt to decrease his bladder irrigation rate. I expect that we will be able to discharge him in the next day or 2 with a Sinhg catheter in place. His intrathecal duramorph injection has worked quite well for him. As it begins wearing off, we will transition to oral pain medications. (2) Bladder stone: Status: Acute Subjective Subjective Interval history since last seen: Yosef remains fairly comfortable with no bladder spasms and no clot retention. He is tolerating oral nutrition. Exam Narrative Exam Narrative: He looks comfortable. His dressing was removed and the incision is clean with no surrounding erythema I removed his Dank-Cadet drain The catheter output is clear His serum creatinine and hemoglobin are appropriate following his surgery. Objective Last Vital Signs Temp 36.2 C L 05/29/22 07:29 Pulse 60 05/29/22 07:29 Resp 16 05/29/22 07:29 BP 115/72 05/29/22 07:29 Pulse Ox 95 05/29/22 07:29 Laboratory Results - last 24 hr 05/28/22 05/29/22 05/29/22 07:03 05:35 05:35 WBC 19.00 H RBC 4.10 L Hgb 12.3 L Hct 36.8 L MCV 90 MCH 30.0 MCHC 33.4 RDW 12.9 Plt Count 245 MPV 10.2 Immature Gran % 0.0 Neutrophils % 86.0 Lymphocytes % 8.0 Atypical Lymphs % 1 Monocytes % 5.0 Eosinophils % 0.0 Basophils % 0.0 Nucleated RBC % 0.0 Absolute Neutrophils 16.34 H Absolute Lymphocytes 1.71 Absolute Monocytes 0.95 H Absolute Eosinophils 0.00 Absolute Basophils 0.00 RBC Morphology Normal Sodium 137 Potassium 4.2 Chloride 102 Carbon Dioxide 25.9 Anion Gap 9.1 BUN 22 H Creatinine 0.9 Est GFR (CKD-EPI 2020) 99.00 Glucose 149 H Calcium 8.7 SARS-CoV-2 (PCR) Negative
[2022-05-29 08:00] VITALS: RESP 18
[2022-05-29] MEDS: Sertraline 50 MG TAB PO (09:05)
[2022-05-29] MEDS: buPROPion-XL 150 MG TABCR 300 MG PO (09:05)
[2022-05-29] MEDS: Acetaminophen 500 MG TAB PO ×2 (09:05→17:36)
--- NOTE | 2022-05-29 12:08 | INITIAL_ITS ---
- If Service Date Differs Date of service: 05/29/22 Time of Service: 12:08 Care Management Initial Assess REASON FOR HOSPITALIZATION:: BPH with LUTS PAST MEDICAL HISTORY/PAST SURGICAL HISTORY:: All Active Problems . Clot retention of urine (Acute). Bladder stone (Acute). Left ureteral stone (Acute). Elevated PSA (Acute). BPH (benign prostatic hyperplasia) (Acute 08/22/17). neg prostate biopsy 2009 (done in [place]). Kidney stone (Acute 08/22/17). CT 2018. ~1cm l UPJ. ~5mm nonobstructing lower pole left kidney. ~2.5cm urinary bladder. Tubular adenoma of colon (Acute 11/19/17). Urinary frequency (Acute). 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 Tinnitus, bilateral (Acute). Ureteral stone (Acute). Bladder mass (Acute). Hypertension (Chronic). Onychomycosis of toenail (Acute). Onychodystrophy (Acute). Basal ganglia infarction (Acute). Hematuria (Acute). Weight gain (Acute). Superficial thrombophlebitis (Acute). Hyperlipidemia (Acute). Skin tag (Acute). Femoral distal fracture (Acute). Impacted cerumen, bilateral (Acute). Conductive hearing loss, external ear (Acute). Sensorineural hearing loss, bilateral (Acute). Medical History . Christopher's palsy. BPH (benign prostatic hyperplasia). Depression. History of nephrolithiasis. History of torn meniscus of right knee. Pneumothorax. Pneumothorax on left. spontaneous. Pneumothorax on right. spontaneous. Varicosities of leg. Surgical History . Colonoscopy - MAC (11/19/17). Fracture of left leg. ORIF left leg, plate and screws. H/O prostate biopsy. History of cystoscopy. Repair of inguinal hernia. S/P TURP (status post transurethral resection of prostate) PREVIOUS FUNCTIONAL STATUS/SOCIAL/FAMILY SUPPORTS:: Yosef works at [employer] in [place], [place] and also resides there. Yosef shares that all the members at the [facility] skilled nursing are very supportive. Per pt, [facility] is a [facility] that offers retreats year round. Yosef drives and is fully independent at baseline. CURRENT FUNCTIONAL STATUS:: Yosef is lying in bed when CM met with him. He is awake, alert and easy to engage in conversation. Yosef is s/p suprapublic prostatectomy with cysto lithotomy and feels quite well, other than mild discomfort. He is being transitioned to PO pain medications. Yosef shares that he is quite comfortable with the care he is receiving as Dr. Holly has been his Urology provider for over 2 years. ADVANCE DIRECTIVES:: None on file, CM will offer forms. Has patient been provided with info about the portal/API?: Yes Did the patient sign up for the portal?: No CODE STATUS:: Full Code INSURANCE COVERAGE / FINANCIAL ISSUES:: [place] Medicaid CURRENT HOME/COMMUNITY SERVICES/EQUIPMENT:: None PRIMARY CARE PHYSICIAN:: Nathalie Franco POTENTIAL DISCHARGE NEEDS:: Follow up appointment with PCP and Urology PATIENT/FAMILY EDUCATION NEEDS:: Review discharge instructions, limitations, medications and plan to follow up with community providers. Discuss ask me three and goals of self care. TRANSPORTATION:: Via private vehicle with a friend. PLAN:: Anticipate, Yosef will discharge home via private vehicle with a friend when medically ready, per Urology. He will follow up with Dr. Holly and his PCP. He uses [facility] in [place] of new RX's are needed.
[2022-05-29] MEDS: Ketorolac 15 MG/ML VIAL IVP ×2 (12:50→19:47)
--- NOTE | 2022-05-29 14:20 | PHA.REVIEW2 ---
Pharmacy Admission Review - Admission Clinical Review (Last Reviewed 05/28/22 @ 07:12 by Stephania Alcazar) Bladder stone (Acute) BPH (benign prostatic hyperplasia) (Acute 08/22/17) No Known Allergies Allergy (Unverified 03/27/22 08:40) Resuscitation Status Full Code Height 5 ft 10 in Weight 104 kg - Renal Dosing Renal Dosing: BUN 22 mg/dL (7-18) H 05/29/22 05:35 Creatinine 0.9 mg/dL (0.70-1.30) 05/29/22 05:35 Medications needing adjustments: Reviewed (Crcl ~108 mL/min current meds okay) - Anticoagulation Anticoagulation: Hgb 12.3 g/dL (13.5-17.5) L 05/29/22 05:35 Hct 36.8 % (40.0-50.0) L 05/29/22 05:35 Plt Count 245 10^3/uL (130-400) 05/29/22 05:35 Creatinine 0.9 mg/dL (0.70-1.30) 05/29/22 05:35 DVT Prophylaxis: Reviewed (SCDs ordered) Therapeutic Anticoagulation: N/A - Opiate Usage Evaluate Pain Scale/Pains Meds: Reviewed Scheduled Bowel Reg ordered if on Opiates?: No (will mention to provider) - Relevant Labs Sodium 137 mmol/L (136-145) 05/29/22 05:35 Potassium 4.2 mmol/L (3.5-5.1) 05/29/22 05:35 Chloride 102 mmol/L (98-107) 05/29/22 05:35 Electrolytes, C-Reactive P, ESR: Reviewed - DM Control DM Control: Glucose 149 mg/dL (74-106) H 05/29/22 05:35 DM Control: Reviewed Insulin Dosing, Diabetic Medication: n/a - Cardiac Review BP, HR, EF%: Reviewed - Qtc Review QTc: N/A - IV to PO Switch IV Medications: Reviewed - Home Meds Home Med List reviewed: Reviewed Relevent Home Meds Not ordered & why?: potassium, tamsulosin - Current meds Current Medication Order Review: Reviewed - Comments Comments/Follow Ups: Watch VS, labs and for med changes.
[2022-05-29 14:34] VITALS: BP 142/62; PULSE 84; RESP 17; TEMP 36.6; O2SAT 96
--- NOTE | 2022-05-29 16:20 | CHAPLAIN ---
Yosef was resting in bed when I visited. He is Jewish and works and lives at [facility], the [facility]. He's been there a few years. He was pleasant and easily engaged in conversation. I explained my role and offered support.
[2022-05-29] MEDS: Simvastatin 40 MG TAB PO (21:58)
[2022-05-29 23:10] VITALS: BP 151/88; PULSE 71; RESP 18; TEMP 36.7; O2SAT 97
[2022-05-30] MEDS: Ketorolac 15 MG/ML VIAL IVP (05:30)
[2022-05-30 07:12] VITALS: BP 155/82; PULSE 77; RESP 19; TEMP 36.9; O2SAT 95
[2022-05-30] MEDS: Sertraline 50 MG TAB PO (08:10)
[2022-05-30] MEDS: buPROPion-XL 150 MG TABCR 300 MG PO (08:10)
[2022-05-30] MEDS: Normal Saline Flush 10 ML SYR IV (08:10)
--- NOTE | 2022-05-30 08:27 | W.PM.PROGNOT ---
Date of Service Date of service: 05/30/22 Time of Service: 08:28 Assessment and Plan Assessment and plan (1) Bladder stone: Status: Acute (2) BPH (benign prostatic hyperplasia): Status: Acute Assessment and plan: We will attempt to D/C his CBI and switch to oral analgesics only. If successful, we will discharge him later today with his mcmanus to a legbag and a catheter plug to the irrigation port. If we need to restart the CBI or continue IV analgesics, he will need to stay one more night in the hospital. Subjective Subjective Interval history since last seen: He remains fairly comfortable. He has used a combination of oral and IV analgesics with good results. His CBI has continued with no clot retention. Exam Narrative Exam Narrative: He looks comfortable. His vital signs are documented elsewhere. His CBI is clear He is awake and alert Objective Last Vital Signs Temp 36.9 C 05/30/22 07:12 Pulse 77 05/30/22 07:12 Resp 19 05/30/22 07:12 BP 155/82 H 05/30/22 07:12 Pulse Ox 95 05/30/22 07:12
--- NOTE | 2022-05-30 08:33 | DSE_ITS ---
Date of service: 05/30/22 Time of Service: 08:33 DS: Diagnosis Discharge Diagnosis (1) Bladder stone: (2) BPH (benign prostatic hyperplasia): Status: Acute Discharge Plan Disposition Patient Disposition: Home Condition: Good Discharge Details Reason For Visit: BPH with LUTS Admit Date/Time: 05/28/22 09:57 Admit Provider: Amador Holly Attending Provider: Amador Holly Primary Care Provider: Nathalie Franco Hospital Course Hospital Course: The patient was admitted and taken to the OR where he underwent a simple suprapubic prostatectomy and evacuation of multiple bladder stones. At the time of his surgery, his previously identified bladder mass was shown to be the intravesical portion of his prostate. Following the procedure, an irrigating catheter was left in place and continuous bladder irrigation was maintained. Over the next 2 days, the CBI was gradually slowed. His diet was a gradually increased and his analgesics were switched for an intrathecal injection of duramorph to a combination of IV and oral analgesia to oral analgesia alone. He is being discharged once the CBI is no longer needed and his pain is controlled with oral analgesia alone. Home Meds and New Rx's Prescriptions: New oxycodone 5 mg Tablet 5 - 10 mg PO Q4H PRN PRNQty: 20 0RF Continued sertraline 50 mg tablet 50 mg PO DAILY acetaminophen [Tylenol Extra Strength] 500 mg tablet 500 - 1,000 mg PO Q6H PRN potassium citrate [Urocit-K 10] 10 mEq (1,080 mg) tablet extended release 10 meq PO BID Qty: 60 12RF diazepam [Valium] 5 mg tablet 5 mg PO TID PRN (Reason: muscle spasm) Qty: 10 0RF simvastatin 40 mg tablet 40 mg PO HS Label Comments: TAKE ONE TABLET BY MOUTH AT BEDTIME loperamide 2 mg Capsule 2 mg PO Q4H PRN Rx Instructions: administer after each loose stool until symptoms controlled; do not exceed 8 mg per 24 hrs bupropion HCl 300 mg Tablet Extended Release 24 Hr 300 mg PO DAILY Discontinued tamsulosin 0.4 mg Capsule 0.4 mg PO DAILY Discharge Instructions Additional Instructions: Usee over the counter stool softeners and laxatives as needed - your oral pain medications can cause constipation may use over the counter tylenol and anti-inflammatory medications along with your prescription pain meds catheter plug to irrigation port of the catheter drainage port of the catheter to a leg bag followup for catheter removal in my office in 1 week followup for pathology results in 1 to 2 weeks OK to shower Activity:: no lifting over 10 pounds Equipment/Supplies:: mcmanus to leg bag Diet:: As Tolerated Discharge Orders Discharge Orders: Discharge Order (Routine); Ordered 05/30/22 Ordered By: Amador Holly Discharge Data Discharge Comment: cancel discharge if need to restart CBI DS: Summary Time Spent with Patient providing and/or coordinating discharge services: Less than 30 minutes Status at Discharge Functional status at discharge: independent ambulation Overall status at discharge: patient is progressing back to baseline Mental Status: mental status grossly normal Speech and Movement: speech and movement normal Mood: congruent mood Affect: normal affect Exam Narrative Exam Narrative: On the morning of 05/30/2022, the patient looks comfortable His vital signs are stable and are documented elsewhere in the chart His lungs are clear His cardiac exam shows a regular rate His abdomen is soft and his surgical incision is clean without surrounding erythema His urine is clear. There is edema of the penile skin He is awake and alert Psych Mental Status: mental status grossly normal Speech and Movement: speech and movement normal Mood: congruent mood Affect: normal affect DS: Data Vitals/I&O Vitals and I&O: Vital Signs Temperature 36.9 C 05/30/22 07:12 Temperature Source Tympanic 05/30/22 07:12 Pulse 77 05/30/22 07:12 Pulse Rhythm Regular 05/29/22 19:33 Respiratory Rate 19 05/30/22 07:12 Respiratory Effort 05/29/22 19:33 Respiratory Depth Normal 05/29/22 19:33 Respiratory Pattern Normal 05/29/22 19:33 Blood Pressure 155/82 H 05/30/22 07:12 Pulse Oximetry 95 05/30/22 07:12 Respiratory End-tidal CO2 29 05/28/22 11:20 Oxygen Delivery Method Room Air 05/30/22 07:12 Oxygen Flow Rate 0 05/30/22 07:12 Pain Level 0 05/30/22 07:12 Intake & Output 05/29/22 05/29/22 05/30/22 11:59 23:59 11:59 Intake Total 1418 / 1650.083 232.083 / 1650.083 Output Total 8000 / 20830 20203 / 20892 Balance -6582 / -47939.917 -70161.917 / -17310.917 Intake: IV 918 / 970.083 52.083 / 970.083 Oral 500 / 680 180 / 680 Output: Urine 8000 / 61977 25969 / 70401 Other: Urine Color Pale Light Desiree Light Desiree [place] Urine Appearance Clear Hematuria Comment CBI draining pink color output. 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 (Acute) Tinnitus, bilateral (Acute) Hypertension (Chronic) Onychomycosis of toenail (Acute) Onychodystrophy (Acute) Basal ganglia infarction (Acute) Weight gain (Acute) Superficial thrombophlebitis (Acute) Hyperlipidemia (Acute) Skin tag (Acute) Femoral distal fracture (Acute) Impacted cerumen, bilateral (Acute) Conductive hearing loss, external ear (Acute) Sensorineural hearing loss, bilateral (Acute) Medical History (Updated 05/30/22 @ 08:35 by Amador Holly MD) Christopher's palsy Bladder stone BPH (benign prostatic hyperplasia) Clot retention of urine Depression Hematuria History of nephrolithiasis History of torn meniscus of right knee Kidney stone (08/22/17) CT 2018 ~1cm l UPJ ~5mm nonobstructing lower pole left kidney ~2.5cm urinary bladder Pneumothorax Pneumothorax on left spontaneous Pneumothorax on right spontaneous Ureteral stone Urinary frequency Varicosities of leg Surgical History Colonoscopy - MAC (11/19/17) Fracture of left leg ORIF left leg, plate and screws H/O prostate biopsy History of cystoscopy Repair of inguinal hernia S/P TURP (status post transurethral resection of prostate) Social History Smoking/Tobacco Use Status: Never Smoking risk assessment performed?: Yes Alcohol Intake: current Alcohol Intake frequency: a few times a week Alcohol type: beer and wine Drug use: Never Substance use type: does not use Do you feel safe at home: Yes Do you feel safe in your relationship?: Yes
--- NOTE | 2022-05-30 09:46 | CMDISCH_ITS ---
- If Service Date Differs Date of service: 05/30/22 Time of Service: 09:46 LACE Index Scoring Tool - Questions: Length of Stay (in days): 2 Acuity (Admit via E.D.?): No E.D. Visits: 1 - Answers: Total Score: 3 Risk of Readmission: Low Risk Care Management Discharge Reason for Hospitalization: BPH with LUTS Discharge Plan: Rodo is discharged home via private vehicle with friend. New RX is transmitted to [facility]. He will follow up with outpatient providers and discharge plan of care as prescribed. Urology follow up will be on 06/06/22 @0800, as scheduled. Patient/Family Education Needs: Review discharge instructions, limitations, medications and plan to follow up with Dr. Holly. Provide mcmanus education, discuss ask me three and goals of self care.
[2022-06-01 22:17] LABS: Interpretation 100% Uric acid
== END 2022-05-30 14:39 | disposition home or self-care (01) | DRG 708 ==
LOC: MS 12:44
PROVIDERS: Admitting Provider Urology; PCP Nurse Practitioner Family; Visit Provider Urology
PROC: 0VT00ZZ Resection of Prostate, Open Approach (ICD-10-PCS; CPT 55821; principal; 2022-05-28 07:30)
DX: N40.1 Benign prostatic hyperplasia with lower urinary tract symptoms (principal); N21.0 Calculus in bladder; I10 Essential (primary) hypertension; L60.3 Nail dystrophy; F32.A Depression, unspecified; Z87.442 Personal history of urinary calculi; E78.5 Hyperlipidemia, unspecified; R35.0 Frequency of micturition; H90.3 Sensorineural hearing loss, bilateral; R31.9 Hematuria, unspecified
CPT/HCPCS: 55821; 52317; 36415; 80048; 87635; 90686; 82365; 85025; 88307; J0690; J1100; J1170; J1885; J2250; J2310; J2370; J2405; J3475

== ENCOUNTER 2022-06-19 18:07 | Outpatient (REF) | payer MEDICAID, SELFPAY | END 2022-06-19 18:08 | disposition home or self-care (01) | LOC: LBN 18:07 | PROVIDERS: PCP Nurse Practitioner Family; Visit Provider Nurse Practitioner Gerontology | DX: N39.0 Urinary tract infection, site not specified (principal) | CPT/HCPCS: 87086 ==

== ENCOUNTER 2022-10-04 11:25 | Outpatient (REF) | payer MEDICAID, SELFPAY ==
[2022-10-04 20:09] LABS: PSA, Diagnostic 7.9 ng/mL (<=3.5)
== END 2022-10-04 11:26 | disposition home or self-care (01) ==
LOC: LBN 11:25
PROVIDERS: PCP Nurse Practitioner Family; Visit Provider Urology
DX: R97.20 Elevated prostate specific antigen [PSA] (principal)
CPT/HCPCS: 84153

== ENCOUNTER 2022-11-29 12:25 | Day surgery (SDC) | payer MEDICAID, SELFPAY ==
[2022-11-29 12:37] VITALS: BP 111/75; PULSE 85; RESP 17; TEMP 36.6; O2SAT 97
[2022-11-29] MEDS: Lactated Ringers 1,000 ML 80 ML IV (12:58)
--- NOTE | 2022-11-29 13:48 | W.COLOREPORT ---
Date of service: 11/29/22 Time of Service: 14:30 Colonoscopy Report Procedure Description: Procedures performed: 1. Colonoscopy with snare polypectomy x1 Preoperative diagnosis: Surveillance colonoscopy, colon polyps, diverticulosis Postoperative diagnosis: Colon polyps, mild sigmoid diverticulosis, grade 1 internal hemorrhoids Surgeon: Deepa Garcia Anesthesia: Herlinda Indication for procedure: Patient is a 56-year-old man who has had 2 prior colonoscopies. Both times adenomatous polyps were found and removed. The last one had a polyp removed from the ascending colon. He has no symptoms. Mild diverticulosis was also seen previously. There is no family history of colon cancer. Findings: Transverse colon a 3-5 mm sessile polyp was removed with hot snare technique. Mild diverticular changes are present in the sigmoid colon only. Grade 1 internal hemorrhoids noted. Surveillance/follow-up recommendations: Because of the personal history and finding a new polyp today, I recommend repeating another colonoscopy in 5 years. Complications: None Blood loss: Minimal Specimens:?? YES Quality of Prep:?? Good Procedure in detail: Written consent was obtained from the patient who was in agreement with the risks, benefits and indications of the procedure.? We went to the endoscopy suite and laid the patient in left lateral decubitus position.? Anesthesia was administered which was tolerated well.? A timeout was performed and when we are all in agreement we began the procedure. Digital rectal exam and visual examination was performed and within normal limits.? A well?lubricated colonoscope was advanced without difficulty all the way to the cecum identified by the ileocecal valve, and triangular folds and appendiceal orifice.? It was then slowly withdrawn.?? Retroflexion was performed in the rectum.? The findings/interventions are noted above. The scope was then removed and the patient tolerated the procedure well and was then taken back to the PACU in hemodynamically stable condition.
--- NOTE | 2022-11-29 13:50 | PDOC.DSDIS_ITS ---
Date of service: 11/29/22 Time of Service: 14:30 Discharge Plan Disposition Patient Disposition: Home Condition: Good Discharge Details Attending Provider: Tong Garcia Primary Care Provider: Nathalie Franco Home Meds and New Rx's Prescriptions: No Action atorvastatin 80 mg tablet 80 mg PO DAILY acetaminophen [Tylenol Extra Strength] 500 mg tablet 500 - 1,000 mg PO Q6H PRN losartan 25 mg tablet 25 mg PO DAILY bupropion HCl [Wellbutrin XL] 300 mg tablet extended release 24 hr 300 mg PO QAM bisacodyl [Dulcolax (bisacodyl)] 5 mg tablet,delayed release (DR/EC) 5 mg PO ONCE Qty: 4 0RF Rx Instructions: take per colonoscopy instructions polyethylene glycol 3350 17 gram/dose powder 238 g PO ONCE Qty: 238 0RF Rx Instructions: take per colonoscopy instructions potassium citrate [Urocit-K 10] 10 mEq (1,080 mg) tablet extended release 10 meq PO BID Qty: 60 12RF oxycodone 5 mg tablet 5 mg PO Q6H MDD 4 PRN (Reason: pain) Qty: 15 0RF Discharge Instructions Additional Instructions: FINDINGS: Another polyp was found today. It is likely the same as the other kinds of polyps you have had previously. No other new or unusual changes other than what has previously been seen. Mild diverticular disease is present and this is extremely common, benign and there is nothing to do about it. Minimal hemorrhoidal disease is also present. This is also a benign and very common co ndition without needing anything to do for it. Because of your personal history of previous polyps being found, I recommend repeating another colonoscopy in 5 years. Sooner if any symptoms or changes were to develop. Stand Alone Forms: Colonoscopy Post Instructions Activity:: Activity as Tolerated Diet:: As Tolerated Discharge Orders Discharge Orders: Discharge Order (Routine); Ordered 11/29/22 Ordered By: Tong Garcia
--- NOTE | 2022-11-29 13:53 | W.ANESPRE ---
General Info Date of Service Date Performed: 11/29/22 Height: 5 ft 10 in Weight: 101.1 kg Body Mass Index (BMI): 31.9 Surgical Procedure: Operation Date: 11/29/22 13:35 Proposed Procedure Side Surgeon p Mega Garcia MD Meds Allergies and Home Medications Allergies Allergy/AdvReac Type Severity Reaction Status Date / Time No Known Allergies Allergy Verified 11/29/22 12:43 Home Medication Medication Instructions Recorded acetaminophen 500 mg tablet 500 - 1,000 mg PO Q6H PRN 04/25/21 (Tylenol Extra Strength) potassium citrate 10 mEq (1,080 10 meq PO BID kidney stones #60 08/04/21 mg) tablet,extended release tabs (Urocit-K 10) atorvastatin 80 mg tablet 80 mg PO DAILY 10/04/22 oxycodone 5 mg tablet 5 mg PO Q6H PRN pain #15 tabs 10/18/22 bisacodyl 5 mg tablet,delayed 5 mg PO ONCE colonscopy bowel prep 11/22/22 release (Dulcolax (bisacodyl)) #4 tabs bupropion HCl 300 mg 24 hr tablet, 300 mg PO QAM 11/22/22 extended release (Wellbutrin XL) losartan 25 mg tablet 25 mg PO DAILY 11/22/22 polyethylene glycol 3350 17 238 g PO ONCE colonoscopy prep 11/22/22 gram/dose oral powder #238 grams Current Visit Medications: Current Medications Generic Name Dose Route Start Last Admin Trade Name Freq PRN Reason Stop Dose Admin Ringer's Solution 1,000 mls @ 80 mls/hr 11/29/22 06:00 11/29/22 12:58 IV 11/29/22 23:59 80 mls/hr INFUSION FRANK Administration IV Miscellaneous Supplies 1 each 11/29/22 06:00 Iv Access IV 11/29/22 23:59 DIRECTED FRANK Sodium Chloride 0 ml 11/29/22 06:00 Normal Saline Flush 10 Ml Syr IV 11/29/22 23:59 PRN PRN Sodium Chloride 0 ml 11/29/22 06:00 Normal Saline 10 Ml Vial IJ 11/29/22 23:59 DIRECTED PRN Sterile Water 0 ml 11/29/22 06:00 Water,Injection,Sterile 10 Ml Vial IJ 11/29/22 23:59 DIRECTED PRN PFSH Active Problems Active Problems: Problem Status Onset Code Suicidal thoughts R45.851 Anxiety F41.9 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 Left ureteral stone N20.1 Elevated PSA R97.20 Tubular adenoma of colon 11/19/17 D12.6 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 Tinnitus, bilateral H93.13 Hypertension I10 Onychomycosis of toenail B35.1 Onychodystrophy L60.3 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 Weight gain R63.5 Superficial thrombophlebitis I80.9 Hyperlipidemia E78.5 Skin tag L91.8 Femoral distal fracture S72.409A Impacted cerumen, bilateral H61.23 Conductive hearing loss, external ear H90.2 Sensorineural hearing loss, bilateral H90.3 Medical History Medical History Christopher's palsy Bladder stone BPH (benign prostatic hyperplasia) BPH (benign prostatic hyperplasia) (08/22/17) neg prostate biopsy 2009 (done in [place]) Clot retention of urine Depression Hematuria History of nephrolithiasis History of torn meniscus of right knee Kidney stone (08/22/17) CT 2018 ~1cm l UPJ ~5mm nonobstructing lower pole left kidney ~2.5cm urinary bladder Pneumothorax Pneumothorax on left spontaneous Pneumothorax on right spontaneous Ureteral stone Urinary frequency Varicosities of leg Surgical History Surgical History Colonoscopy - MAC (11/19/17) Fracture of left leg ORIF left leg, plate and screws H/O prostate biopsy History of cystoscopy Repair of inguinal hernia S/P TURP (status post transurethral resection of prostate) Tobacco Smoking/Tobacco Use Status: Never Alcohol Alcohol Intake: current Alcohol intake frequency: a few times a week Alcohol type: beer and wine Substance Use Substance use: Occasionally Substance use type: marijuana Vital Signs and Lab Results Vital Signs Most Recent Vital Signs in EMR: Most Recent Vital Signs Temp Pulse Resp BP Pulse Ox 36.6 C 85 17 111/75 97 11/29/22 12:37 11/29/22 12:37 11/29/22 12:37 11/29/22 12:37 11/29/22 12:37 Lab Results Blood Type / Crossmatch: No Data to Display Complete Blood Count: No Data to Display Complete Metabolic Panel: No Data to Display Liver Function Panel: No Data to Display Coagulation Panel: No Data to Display Cardiac Panel: No Data to Display Arterial Blood Gas: No Data to Display Venous Blood Gas: No Data to Display Pancreas Panel: No Data to Display Thyroid Panel: No Data to Display Infectious Disease: No Data to Display Blood Cultures: No Data to Display Toxicology Panel: No Data to Display Anesthesia Assessment and Plan Anesthesia History Personal History: No History of Anesthesia Complications Family History: No Family History of Anesthesia Complications Exercise Tolerance Exercise Tolerance: Metabolic Equivalents>4 Pertinent Negatives Pertinent Negatives: No Symptoms of GERD, No Major Cardiovascular Symptoms or Complaints and No Major Pulmonary Symptoms or Complaints Cardiac & Pulmonary Exam Cardiac Exam: Normal S1/S2 Heart Sounds Pulmonary Exam: Clear Bilateral Breath Sounds Implantable Cardiac Device Does patient have a Pacemaker or an ICD?: No Airway Exam Known Difficult Airway: No Mallampati Class: 1 Mouth Opening: Normal (> 3cm) Thyromental Distance: Greater than 3 cm Neck Range of Motion: Limited ROM Neck Circumference: Normal Teeth Condition: Normal Dentition ASA Classification ASA Score: ASA 2 Emergency Case?: No NPO Status NPO Status: NPO Clears >2 hours, Solids >8 hours Anesthesia Plan Resuscitation Status: Full Code Anesthesia Technique: General Anesthesia Airway Planned: Natural Airway Monitors Used: Standard Monitors
[2022-11-29 13:55] VITALS: BMI 31.9
--- NOTE | 2022-11-29 14:21 | BOWEL_PTH ---
PATIENT: Rodo Elizabeth LOC: [facility] U#:[id number] AGE/SX: 56/M ROOM: RE11/29/[address]: Tong Garcia : 1965 BED: DIS: 11/29/2022 SPEC #: [id number] RECD: 11/29/22 17:19 STATUS: FRANCISCO J REQ #: [id number] FELICIA: 11/29/22 14:[address]: Tong Garcia DEPT: Surgical Specimen RECD BY: Rosetta Quintana ENTERED: 11/29/22 17:19 SP TYPE: Bowel OTHR DR: Nathalie Franco Tissues: 1 - BIOPSY BOWEL Procedures: GROSS AND MICRO LEVEL 4 Comments: [id number]
[2022-11-29 14:30] VITALS: BP 115/67; PULSE 72; RESP 17; TEMP 37; O2SAT 96
--- NOTE | 2022-11-29 14:38 | W.ANESPOSTOP ---
Postoperative Evaluation Date, Time and Location Date Performed: 11/29/22 Time Performed: 14:38 Patient Location: Day Surgery Unit Vital Signs Most Recent Imported Vital Signs: Most Recent Vital Signs Temp Pulse Resp BP Pulse Ox 37.0 C 72 17 115/67 96 11/29/22 14:30 11/29/22 14:30 11/29/22 14:30 11/29/22 14:30 11/29/22 14:30 Pain Score Most Recent Pain Score: Most Recent Pain Score Pain Level 0 11/29/22 14:30 Assessment Mental Status: Awake (Alert & Oriented to Patient Baseline) Airway and Respiratory Function: Patent airway with normal (patient baseline) respiratory exam Cardiovascular Function: Hemodynamically Stable Hydration Status: Adequately Hydrated Nausea & Vomiting: No Nausea or Vomiting Pain: Pt. Denies Any Pain Peripheral Nerve Block: Patient did not receive a nerve block
[2022-11-29 14:59] VITALS: BP 122/71; PULSE 70; RESP 18; TEMP 36.7; O2SAT 97
== END 2022-11-29 15:05 | disposition home or self-care (01) ==
PROVIDERS: PCP Nurse Practitioner Family; Visit Provider Student in an Organized Health Care Education/Training Program
PROC: 0DJD8ZZ Inspection of Lower Intestinal Tract, Via Natural or Artificial Opening Endoscopic (ICD-10-PCS; CPT 45378; principal; 2022-11-29 13:30)
DX: Z12.11 Encounter for screening for malignant neoplasm of colon (principal); D12.3 Benign neoplasm of transverse colon; Z86.010 Personal history of colon polyps; K57.30 Diverticulosis of large intestine without perforation or abscess without bleeding; K64.0 First degree hemorrhoids
CPT/HCPCS: 45385; 88305

== ENCOUNTER → 2023-04-19 15:30 | Outpatient (CLI) | payer MEDICAID, SELFPAY ==
--- NOTE | 2023-04-19 14:51 | DI.RAD_ITS ---
Exam(s) XR HEEL LT OS CALCIS EXAM: XR HEEL LT OS CALCIS CLINICAL HISTORY: LT CALCANEAL SPUR, M77.32. TECHNIQUE: 2D digital imaging was performed. COMPARISON: No exams were available for comparison FINDINGS: BONES: No acute fracture is present. No bony destructive lesion is seen. Spurring at Achilles insert ion on calcaneus. Few small bony fragments. No plantar fascial calcification. JOINTS: No dislocation present. SOFT TISSUE: Normal. IMPRESSION: Spurring at Achilles insertion on calcaneus. DATA REPOSITORY: RADIATION DOSE DELIVERED:
== END ==
PROVIDERS: PCP Nurse Practitioner Family; Visit Provider Nurse Practitioner Family
DX: M77.32 Calcaneal spur, left foot (principal)
CPT/HCPCS: 73650

== ENCOUNTER 2023-07-12 08:48 | Emergency (ER) | payer MEDICAID, SELFPAY ==
[2023-07-12 08:50] VITALS: BP 127/99; PULSE 72; RESP 16; TEMP 36.3; O2SAT 98
--- NOTE | 2023-07-12 09:04 | ED.GENADUL_ITS ---
HPI General Date/Time Provider Initiated Documentation: 07/12/23 08:48 . Limitations to Documentation: no limitations . Information obtained by: patient and RN notes reviewed . History of Present Illness 57 year old M presents to the emergency department with the chief complaint of burn left hand, described as moderate, with intensity rated at 8. Quality is described as burning, and is localized to the upper extremity. Patient reports no radiation. Patient started experiencing this minute(s) and it has been constant. Immobilization improves symptom(s), (tepid water ) Movement worsens symptoms . Patient notes no other symptoms.. Patient did receive the following treatments prior to arrival, none Related Data Home Medications Medication Instructions Recorded Confirmed acetaminophen 500 mg tablet 500 - 1,000 mg PO Q6H PRN 04/25/21 07/12/23 (Tylenol Extra Strength) atorvastatin 80 mg tablet 80 mg PO DAILY 10/04/22 07/12/23 bupropion HCl 300 mg 24 hr tablet, 300 mg PO QAM 11/22/22 07/12/23 extended release (Wellbutrin XL) losartan 25 mg tablet 25 mg PO DAILY 11/22/22 07/12/23 potassium citrate 10 mEq (1,080 See Rx Instructions .Route 02/21/23 07/12/23 mg) tablet,extended release .COMPLEX #60 tabs acetylcysteine 600 mg capsule 600 mg PO DAILY 07/12/23 07/12/23 Previous Rx's Medication Instructions Recorded potassium citrate 10 mEq (1,080 See Rx Instructions .Route 02/21/23 mg) tablet,extended release .COMPLEX #60 tabs Allergies Allergy/AdvReac Type Severity Reaction Status Date / Time No Known Allergies Allergy Verified 07/12/23 08:54 General Stated Complaint: Burn LEOBARDO: 4 Review of Systems Constitutional Constitutional: Reports as per HPI, Denies chills and Denies fever(s) Musculoskeletal Musculoskeletal: Reports as per HPI Integumentary/Breasts Skin/Breast: Reports as per HPI Neurologic Neurologic: Reports as per HPI and Denies sensory deficit Exam Const General: cooperative, healthy appearing, comfortable, no acute distress and well developed Nutritional Appearance: average body habitus and well nourished Orientation: alert and awake Resp Effort & Inspection: normal respiratory effort, able to speak in complete sentences and no respiratory distress Cardio Rate: regular rate Rhythm: regular rhythm Skin General skin exam: erythema and other (superficial burn, small area of blister, no full thickness) Neuro General: patient alert and patient awake Cognition: normal cognition Speech: speech normal Gait: normal gait Sensory Exam: no sensory deficits noted Extrem Hand/finger images: 2 1. Superficial area of burn. No full thickness disruption, full ROM of fingers. No sensory deficit at this area or in digits, capillary refill intact. Blister is intact, minimally raised. No pain or limitation on the wrist. 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 Denies other injury at the time of the incident. States that he had some slight tingling in the thumb and index finger. This seems to be resolving. Noted some blisters. Applied burn cream initially. Unknown tetanus status. Believes it is over 10 years. On exam, patient appears anxious but otherwise nontoxic. He has a 3 cm x 2 cm superficial burn with a small portion of this being covered in blister. Suspect the rest will likely blister in time. No full-thickness burn or break in the skin. Sensation is intact. Full range of motion. Tender locally over this burned circular area. Patient and I discussed concerns with burn, particularly risk of infection. Will give Tylenol and ibuprofen to help with discomfort. burn was cleansed by nursing staff. Will apply layer bacitracin and. D dressing along with Kamron wrap discussed continued pain management. Will update tetanus. Return precautions were discussed, particular signs or symptoms of infection. Advise follow-up with primary care. All of his questions and concerns were addressed and he is in agreement this plan. 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 (Acute) Tinnitus, bilateral (Acute) Hypertension (Chronic) Onychomycosis of toenail (Acute) Onychodystrophy (Acute) Basal ganglia infarction (Acute) Weight gain (Acute) Superficial thrombophlebitis (Acute) Hyperlipidemia (Acute) Skin tag (Acute) Femoral distal fracture (Acute) Impacted cerumen, bilateral (Acute) Conductive hearing loss, external ear (Acute) Sensorineural hearing loss, bilateral (Acute) Medical History Facial palsy Fatigue Obesity Knee pain, left Pre-diabetes Snoring History of torn meniscus of right knee History of nephrolithiasis Hematuria Ureteral stone Christopher's palsy Urinary frequency Pneumothorax on right spontaneous Pneumothorax on left spontaneous Pneumothorax Kidney stone (08/22/17) CT 2018 ~1cm l UPJ ~5mm nonobstructing lower pole left kidney ~2.5cm urinary bladder BPH (benign prostatic hyperplasia) (08/22/17) neg prostate biopsy 2009 (done in [place]) Varicosities of leg Depression BPH (benign prostatic hyperplasia) Bladder stone Clot retention of urine Surgical History History of colonoscopy with polypectomy (~11/2022) Fracture of left leg ORIF left leg, plate and screws S/P TURP (status post transurethral resection of prostate) H/O prostate biopsy History of cystoscopy Repair of inguinal hernia Colonoscopy - MAC (11/19/17) Social History Smoking/Tobacco Use Status: Never Smoking risk assessment performed?: Yes Alcohol Intake: current Alcohol Intake frequency: a few times a week Alcohol type: beer and wine Drug use: Occasionally Substance use type: marijuana Housing: house Do you feel safe at home: Yes Do you feel safe in your relationship?: Yes PAWSS Have you Been Recently Intoxicated or Drunk Within the Last 30 days?: No Have you Ever Experienced Previous Episodes of Alcohol Withdrawal?: No Have you ever Experienced Withdrawal Seizures?: No Have you ever Experienced Delirium Tremens(DT)s?: No Have you ever undergone Alcohol Rehabilitation Treatment (i.e, inpt ot outpatient treatment programs)?: No Have you ever Experienced Blackouts?: No Have you ever Combined Alcohol with other Downers within the last 90 days?: No Have you ever Combined Alcohol with any other Substance of Abuse during the last 90 days?: No Positive Blood Alcohol level on Presentation? [PCS.BAL]: No Evidence of Increased Autonomic Activity (i.e. HR>120, tremor, sweating, agitation, nausea)?: No Result: 0 Discharge Plan Disposition Patient Disposition: Home Condition: Good Discharge Details Clinical Impression: Superficial burn of left hand Primary Care Provider: Nathalie Franco ED Provider: Fang Pope Home Meds and New Rx's Prescriptions: Continued atorvastatin 80 mg tablet 80 mg PO DAILY acetaminophen [Tylenol Extra Strength] 500 mg tablet 500 - 1,000 mg PO Q6H PRN losartan 25 mg tablet 25 mg PO DAILY bupropion HCl [Wellbutrin XL] 300 mg tablet extended release 24 hr 300 mg PO QAM potassium citrate 10 mEq (1,080 mg) tablet extended release See Rx Instructions .ROUTE .COMPLEX Qty: 60 12RF Dose Instruction: TAKE ONE TABLET BY MOUTH TWICE A DAY FOR KIDNEY STONES Rx Instructions: TAKE ONE TABLET BY MOUTH TWICE A DAY FOR KIDNEY STONES acetylcysteine 600 mg capsule 600 mg PO DAILY Patient Comments: TAKE ONE CAPSULE BY MOUTH TWICE A DAY Discharge Instructions Instructions: Superficial Burn (ED), Acute Wound Care (ED) Additional Instructions: Please keep wound clean, dry, covered. Wash with running water and soap, pat dry and reapply bandage. Please try to keep the blister in place. Try not to pick at this. Please try to avoid activities that put excess strain and cause discomfort on the burn. Your tetanus was updated today. Please apply bacitracin over the area to keep this moist. May use Tylenol and ibuprofen as needed for discomfort. Please follow-up with your primary care next week for reevaluation. If you develop increased pain, fever/chills, discharge or other new/worsening symptoms please seek care urgently once again, please seek care urgently once again. Referrals: Nathalie Franco [Primary Care Provider] -
[2023-07-12] MEDS: Bacitracin 30 GM TUBE TP (09:08)
[2023-07-12] MEDS: Acetaminophen 325 MG TAB 650 MG PO (09:08)
[2023-07-12] MEDS: Ibuprofen 600 MG TAB PO (09:09)
== END 2023-07-12 09:19 | disposition home or self-care (01) ==
LOC: ER 09:18
PROVIDERS: Emergency Provider Physician Assistant; PCP Nurse Practitioner Family
DX: T23.252A Burn of second degree of left palm, initial encounter (principal); T31.0 Burns involving less than 10% of body surface; I10 Essential (primary) hypertension; X15.3XXA Contact with hot saucepan or skillet, initial encounter; Y93.G3 Activity, cooking and baking; Y92.010 Kitchen of single-family (private) house as the place of occurrence of the external cause; Z23 Encounter for immunization
CPT/HCPCS: 90471; 90715; 99283

== ENCOUNTER 2023-09-12 13:10 | Outpatient (REF) | payer MEDICAID, SELFPAY ==
[2023-09-12 14:37] LABS: HCT 47.7 % (40.0-50.0); HGB 15.8 g/dL (13.5-17.5); MCH 30.2 pg (27.0-33.0); MCHC 33.1 % (32.0-36.0); MCV 91 fL (80-95); MPV 10.4 fL (8.0-11.0); Platelet Count 275 10^3/uL (130-400); RBC 5.24 10^6/uL (4.36-5.78); RDW 12.9 % (11.8-14.1); RDW-SD 42.9 fL; WBC 8.83 10^3/uL (4.4-10.8)
[2023-09-12 15:08] LABS: Hemoglobin A1C 6.1 % (<5.7)
[2023-09-12 15:10] LABS: ALT 45 U/L (16-63); AST 19 U/L (15-37); Albumin 4.2 g/dL (3.4-5.0); Alkaline Phosphatase 98 U/L (46-116); Anion Gap 12.1 mmol/L (3-11); BUN 25 mg/dL (7-18); Bilirubin, Total 0.5 mg/dL (0.2-1.0); CO2 22.9 mmol/L (21.0-32.0); Calcium 9.4 mg/dL (8.5-10.1); Calculated LDL 137 mg/dL (<100); Chloride 107 mmol/L (98-107); Cholesterol 219 mg/dL (<200); Glucose 115 mg/dL (74-106); HDL Cholesterol 47 mg/dL (40-60); Potassium 4.4 mmol/L (3.5-5.1); Sodium 142 mmol/L (136-145); Total Protein 7.3 g/dL (6.4-8.2); Triglyceride 177 mg/dL (<150)
[2023-09-12 15:15] LABS: COMMENT (LAB VIEW ONLY) 95.57 mg/dL
[2023-09-12 15:40] LABS: Microalb ug/mg Crea 174.5 ug/mg Cr
[2023-09-12 22:31] LABS: PSA, Diagnostic 12.7 ng/mL (<=3.5)
== END 2023-09-12 13:11 | disposition home or self-care (01) ==
LOC: NCHCN 13:10
PROVIDERS: PCP Nurse Practitioner Family; Visit Provider Nurse Practitioner Family
DX: R73.03 Prediabetes (principal); R79.89 Other specified abnormal findings of blood chemistry; R97.20 Elevated prostate specific antigen [PSA]
CPT/HCPCS: 80053; 80061; 85027; 82043; 82570; 83036; 84153

== ENCOUNTER 2023-10-23 17:13 | Outpatient (REF) | payer MEDICAID, SELFPAY ==
--- NOTE | 2023-10-23 10:30 | SKI_PTH ---
PATIENT: Rodo Elizabeth LOC: [facility] U#:[id number] AGE/SX: 57/M ROOM: RE10/23/[address]: Nathalie Franco : 1965 BED: DIS: 10/23/2023 SPEC #: [id number] RECD: 10/24/23 12:01 STATUS: FRANCISCO J ROSE #: [id number] FELICIA: 10/23/23 10:[address]: Nathalie Franco DEPT: Surgical Specimen RECD BY: Rosetta Quintana Tissues: 1 - SKIN CYST/TAG/DEBRIDEMENT Procedures: GROSS AND MICRO LEVEL 3 Comments: [id number]
== END 2023-10-23 17:14 | disposition home or self-care (01) ==
LOC: NCHCN 17:13
PROVIDERS: PCP Nurse Practitioner Family; Visit Provider Nurse Practitioner Family
DX: L91.8 Other hypertrophic disorders of the skin (principal)
CPT/HCPCS: 88304

== ENCOUNTER 2023-11-16 06:48 | Emergency (ER) | payer MEDICAID, SELFPAY ==
[2023-11-16 06:50] VITALS: BP 156/89; PULSE 64; RESP 16; TEMP 36.6; O2SAT 97
--- NOTE | 2023-11-16 07:26 | ED.GENADUL_ITS ---
Discharge Plan Disposition Patient Disposition: Home Condition: Stable Discharge Details Clinical Impression: Tick bite of lower leg, Skin lesion of right lower extremity Primary Care Provider: Nathalie Franco ED Provider: Adrián Rose Home Meds and New Rx's Prescriptions: Continued atorvastatin 80 mg tablet 80 mg PO DAILY acetaminophen [Tylenol Extra Strength] 500 mg tablet 500 - 1,000 mg PO Q6H PRN losartan 25 mg tablet 25 mg PO DAILY bupropion HCl [Wellbutrin XL] 300 mg tablet extended release 24 hr 450 mg PO QAM potassium citrate 10 mEq (1,080 mg) tablet extended release See Rx Instructions .ROUTE .COMPLEX Qty: 60 12RF Dose Instruction: TAKE ONE TABLET BY MOUTH TWICE A DAY FOR KIDNEY STONES Rx Instructions: TAKE ONE TABLET BY MOUTH TWICE A DAY FOR KIDNEY STONES acetylcysteine 600 mg capsule 600 mg PO DAILY Patient Comments: TAKE ONE CAPSULE BY MOUTH TWICE A DAY Discharge Instructions Instructions: Tick Bite (ED) Additional Instructions: You were given a one-time dose of doxycycline 200 mg as prophylaxis for Lyme disease. Please contact your primary care physician to arrange follow-up. Tick panel lab testing is pending at time of discharge. Please be sure to follow-up up with your primary care physician regarding results. Return to the ER immediately for any worsening or new concerning symptoms. HPI General Mode of arrival: ambulatory . Date/Time Provider Initiated Documentation: 11/16/23 06:55 . Limitations to Documentation: no limitations . Information obtained by: patient . HPI Narrative: 57-year-old male presents with chief complaint of rash. Patient notes rash right lower leg that he noticed this morning. He does not believe rash was present last night. He is concerned he may have been bit by a tick. 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 He notes multiple tick exposures over the past few months. He does not believe he has had a tick attached for prolonged period of time. He denies fever, body aches, pain or paresthesias. No headache or neck stiffness. Related Data Home Medications Medication Instructions Recorded Confirmed acetaminophen 500 mg tablet 500 - 1,000 mg PO Q6H PRN 04/25/21 11/16/23 (Tylenol Extra Strength) atorvastatin 80 mg tablet 80 mg PO DAILY 10/04/22 11/16/23 bupropion HCl 300 mg 24 hr tablet, 450 mg PO QAM 06/01/23 05/25/24 extended release (Wellbutrin XL) losartan 25 mg tablet 25 mg PO DAILY 11/22/22 11/16/23 potassium citrate 10 mEq (1,080 See Rx Instructions .Route 02/21/23 11/16/23 mg) tablet,extended release .COMPLEX #60 tabs acetylcysteine 600 mg capsule 600 mg PO DAILY 07/12/23 11/16/23 Previous Rx's Medication Instructions Recorded potassium citrate 10 mEq (1,080 See Rx Instructions .Route 02/21/23 mg) tablet,extended release .COMPLEX #60 tabs Allergies Allergy/AdvReac Type Severity Reaction Status Date / Time No Known Allergies Allergy Verified 11/16/23 06:54 General Stated Complaint: InsectBite LEOBARDO: 4 Review of Systems All systems reviewed & are unremarkable except as noted in HPI and below Constitutional Constitutional: Denies body ache(s) and Denies fever(s) Exam Const General: cooperative and no acute distress HENMT Mouth: moist mucous membranes Eyes Conjunctivae: normal conjunctivae Sclera: normal sclerae Cardio Rate: not tachycardic Skin Lesions: lesion noted (3 cm ecchymotic lesion, painless RLE) Neuro General: patient alert and patient awake Extrem General: no edema Course Vital Signs Vital signs: Vital Signs Temperature 36.6 C 11/16/23 06:50 Pulse 64 11/16/23 06:50 Respiratory Rate 16 11/16/23 06:50 Blood Pressure 156/89 H 11/16/23 06:50 Pulse Oximetry 97 11/16/23 06:50 Temperature 36.6 C 11/16/23 06:50 Temperature Source Skin 11/16/23 06:50 Pulse 64 11/16/23 06:50 Respiratory Rate 16 11/16/23 06:50 Respiratory Effort Normal 11/16/23 06:56 Blood Pressure 156/89 H 11/16/23 06:50 Blood Pressure Position Sitting 11/16/23 06:50 Pulse Oximetry 97 11/16/23 06:50 Pain Level 0 11/16/23 06:50 Medical Decision Making 57-year-old male here with ecchymotic lesion right lower extremity that he noticed this morning, concern for tick bite. 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 He has frequent exposure to ticks. He has no fever, myalgias, headache or neck stiffness. Patient is hemodynamically stable. Given potential tick bite, unknown attachment time, and concerning lesion, will initiate treatment with doxycycline 200 mg x 1. Given potential exposure over the past few months and prior tickborne illness, I will send tick panel, CBC and chemistry. -- Labs reviewed and nondiagnostic. Tick panel pending at time of discharge. Plan for follow-up with PCP. Lab Data Lab results reviewed: Yes I reviewed the patient's lab results. Labs: Laboratory Tests Range/Units 11/15/ 07:35 WBC (4.4-10.8) 10^3/uL 7.80 RBC (4.36-5.78) 10^6/uL 5.09 Hgb (13.5-17.5) g/dL 15.4 Hct (40.0-50.0) % 46.8 MCV (80-95) fL 92 MCH (27.0-33.0) pg 30.3 MCHC (32.0-36.0) % 32.9 RDW (11.8-14.1) % 12.7 Plt Count (130-400) 10^3/uL 242 MPV (8.0-11.0) fL 10.0 Immature Gran % % 0.3 Neutrophils % % 57.8 Lymphocytes % % 29.5 Monocytes % % 7.7 Eosinophils % % 3.8 Basophils % % 0.9 Nucleated RBC % (0.0-0.3) % 0.0 Absolute Neutrophils (1.2-6.7) 10^3/uL 4.51 Absolute Lymphocytes (1.2-3.4) 10^3/uL 2.30 Absolute Monocytes (0.1-0.8) 10^3/uL 0.60 Absolute Eosinophils (0.0-0.7) 10^3/uL 0.30 Absolute Basophils (0.0-0.2) 10^3/uL 0.07 Sodium (136-145) mmol/L 143 Potassium (3.5-5.1) mmol/L 4.2 Chloride (98-107) mmol/L 107 Carbon Dioxide (21.0-32.0) mmol/L 26.7 Anion Gap (3-11) mmol/L 9.3 BUN (7-18) mg/dL 24 H Creatinine (0.70-1.30) mg/dL 1.1 Est GFR (CKD-EPI 2020) (mL/min/1.73m2) 77.33 Glucose (74-106) mg/dL 128 H Calcium (8.5-10.1) mg/dL 8.7 Total Bilirubin (0.2-1.0) mg/dL 0.5 AST (15-37) U/L 12 L ALT (16-63) U/L 31 Alkaline Phosphatase (46-116) U/L 98 Total Protein (6.4-8.2) g/dL 7.4 Albumin (3.4-5.0) g/dL 4.1 Quality:SDOH Health Related Social Needs: No Data to Display PFSH All Active Problems (Updated 11/16/23 @ 07:32 by Adrián Rose MD) Skin lesion of right lower extremity (Acute) Tick bite of lower leg (Acute) Nasal obstruction (Acute) Deviated nasal septum (Acute) Tubular adenoma (Acute ~11/2022) Suicidal thoughts (Acute) Anxiety (Chronic) Impairment of speech discrimination (Acute) Left ureteral stone (Acute) Elevated PSA (Acute) Tubular adenoma of colon (Acute 11/19/17) 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 (Acute) Tinnitus, bilateral (Acute) Hypertension (Chronic) Onychomycosis of toenail (Acute) Onychodystrophy (Acute) Basal ganglia infarction (Acute) Weight gain (Acute) Superficial thrombophlebitis (Acute) Hyperlipidemia (Acute) Skin tag (Acute) Femoral distal fracture (Acute) Impacted cerumen, bilateral (Acute) Conductive hearing loss, external ear (Acute) Sensorineural hearing loss, bilateral (Acute) Medical History Facial palsy Fatigue Obesity Knee pain, left Pre-diabetes Snoring History of torn meniscus of right knee History of nephrolithiasis Hematuria Ureteral stone Christopher's palsy Urinary frequency Pneumothorax on right spontaneous Pneumothorax on left spontaneous Pneumothorax Kidney stone (08/22/17) CT 2018 ~1cm l UPJ ~5mm nonobstructing lower pole left kidney ~2.5cm urinary bladder BPH (benign prostatic hyperplasia) (08/22/17) neg prostate biopsy 2009 (done in [place]) Varicosities of leg Depression BPH (benign prostatic hyperplasia) Bladder stone Clot retention of urine Surgical History History of colonoscopy with polypectomy (~11/2022) Fracture of left leg ORIF left leg, plate and screws S/P TURP (status post transurethral resection of prostate) H/O prostate biopsy History of cystoscopy Repair of inguinal hernia Colonoscopy - MAC (11/19/17) Social History Smoking/Tobacco Use Status: Never Smoking risk assessment performed?: Yes Alcohol Intake: current Alcohol Intake frequency: a few times a week Alcohol type: beer and wine Drug use: Occasionally Substance use type: marijuana Housing: other Do you feel safe at home: Yes Do you feel safe in your relationship?: Yes PAWSS Have you Been Recently Intoxicated or Drunk Within the Last 30 days?: No Have you Ever Experienced Previous Episodes of Alcohol Withdrawal?: No Have you ever Experienced Withdrawal Seizures?: No Have you ever Experienced Delirium Tremens(DT)s?: No Have you ever undergone Alcohol Rehabilitation Treatment (i.e, inpt ot outpatient treatment programs)?: No Have you ever Experienced Blackouts?: No Have you ever Combined Alcohol with other Downers within the last 90 days?: No Have you ever Combined Alcohol with any other Substance of Abuse during the last 90 days?: No Positive Blood Alcohol level on Presentation? [PCS.BAL]: No Evidence of Increased Autonomic Activity (i.e. HR>120, tremor, sweating, agitation, nausea)?: No Result: 0
[2023-11-16] MEDS: Doxycycline Hyclate 100 MG CAP 200 MG PO (07:38)
[2023-11-16 07:39] LABS: Abs Immature Grans 0.02 10^3/uL (0.0-0.06); Absolute Basophil Count 0.07 10^3/uL (0.0-0.2); Absolute Neutrophil Count 4.51 10^3/uL (1.2-6.7); Basophils % 0.9 %; Eosinophils % 3.8 %; HCT 46.8 % (40.0-50.0); HGB 15.4 g/dL (13.5-17.5); Immature Grans % 0.3 %; Lymphocytes % 29.5 %; MCH 30.3 pg (27.0-33.0); MCHC 32.9 % (32.0-36.0); MCV 92 fL (80-95); Monocytes % 7.7 %; Neutrophils % 57.8 %; Platelet Count 242 10^3/uL (130-400); RBC 5.09 10^6/uL (4.36-5.78); RDW 12.7 % (11.8-14.1); RDW-SD 43.1 fL
[2023-11-16 07:54] LABS: ALT 31 U/L (16-63); AST 12 U/L (15-37); Albumin 4.1 g/dL (3.4-5.0); Alkaline Phosphatase 98 U/L (46-116); Anion Gap 9.3 mmol/L (3-11); BUN 24 mg/dL (7-18); Bilirubin, Total 0.5 mg/dL (0.2-1.0); CO2 26.7 mmol/L (21.0-32.0); CREATININE 1.1 mg/dL (0.70-1.30); Calcium 8.7 mg/dL (8.5-10.1); Chloride 107 mmol/L (98-107); Estimated GFR 77.33 (mL/min/1.73m2); Glucose 128 mg/dL (74-106); Potassium 4.2 mmol/L (3.5-5.1); Sodium 143 mmol/L (136-145); Total Protein 7.4 g/dL (6.4-8.2)
[2023-11-16 09:09] VITALS: BP 156/98; PULSE 61; RESP 14; TEMP 37; O2SAT 98
[2023-11-18 11:10] LABS: Lyme Ab w Rflx to Lyme Confirm Negative (Negative)
[2023-11-19 22:50] LABS: Anaplasma phagocytophilum Negative (Negative); B. miyamotoi PCR Negative (Negative); Babesia divergens/MO-1 Negative (Negative); Babesia duncani Negative (Negative); Babesia microti Negative (Negative); Ehrlichia chaffeensis Negative (Negative); Ehrlichia ewingii/canis Negative (Negative); Ehrlichia muris eauclairensis Negative (Negative)
== END 2023-11-16 09:16 | disposition home or self-care (01) ==
PROVIDERS: Emergency Provider Student in an Organized Health Care Education/Training Program; PCP Nurse Practitioner Family
DX: S80.861A Insect bite (nonvenomous), right lower leg, initial encounter; W57.XXXA Bitten or stung by nonvenomous insect and other nonvenomous arthropods, initial encounter
CPT/HCPCS: 80053; 87798; 99283; 85025; 86618; 99284